=== PATIENT | female | born 1935 | race Caucasian/White ===

== ENCOUNTER 2016-05-22 16:17 | Inpatient (IN) | payer MEDICARE, OTHER ==
[~2016-05-22] VITALS: Ht 167.6 cm; Wt 56.7 kg
--- NOTE | ~2016-05-22 | CN ---
PATIENT NAME:JOSE GUADALUPE VIEIRA MEDICAL RECORD: [id number] : 37 LOCATION:D[facility] ADMIT DATE: 05/23/16 ACCOUNT: [id number] CONSULTING PHYSICIAN: LOUIE REEDER MD REFERRING PHYSICIAN: MARTIN AMES MD DATE OF CONSULTATION: 05/30/2016 Neurosurgical Consultation CHIEF COMPLAINT: Weakness. HISTORY OF PRESENT ILLNESS: This is an elderly white female with at least 6 months of progressive weakness in all 4 extremities with no focal neurologic deficit. She denies seizure or stroke-like symptoms. She denies headaches. Medical workup was significant for anemia and hypothyroidism. REVIEW OF SYSTEMS: Negative for seizures, stroke symptoms, TIA, headaches and palpitations. PHYSICAL EXAMINATION: GENERAL: An elderly-appearing ____, white female, in no acute distress. NEUROLOGIC: Alert and oriented times 3. Cranial nerves intact. Motor strength is 4+/5 in all 4 extremities to detailed testing. DTRs are 2+ and equal over biceps, triceps, patella and Achilles. She has downgoing toes to Babinski testing on both sides. She has full range of motion of her cervical, thoracic and lumbar spine. Her cervical, thoracic and lumbar spine is nontender. She has no nuchal rigidity. LABORATORY DATA: CT of the brain shows prominent lateral ventricles with no extra-axial masses or intra-axial masses. MRI of the brain shows possible slight transependymal CSF flow across the frontal horns of the lateral ventricles. Lateral ventricles are prominent. The third ventricle is prominent. The fourth ventricle is normal in size. There are no intra-axial or extra-axial masses. There are positive deep white matter T2 signal changes consistent with normal aging. IMPRESSION: Episodic metabolic encephalopathy with hypothyroidism, remote possibility of normal pressure hydrocephalus. PLAN: Observe. I will see her back in the clinic in 2 months' time and reassess clinically for symptoms and plans for normal pressure hydrocephalus with a followup MRI at that time. Thank you for this consultation. TRANSINT:[id number] Voice Confirmation ID: [id number] DOCUMENT ID: [id number] CONSULT REPORT [id number] JOSE GUADALUPE VIEIRA LOUIE REEDER MD CC: [id number] DICTATION DATE: 05/30/161807 BAG INSPECTOR: 05/30/162 [place] [address]
[~2016-05-22 16:17] MED LIST: NEURONTIN 400400 MG PO; ORAPRED ODT30 MG/TAB PO; STERAPRED DS 1210 MG; VITAMIN B-121000 MCG PO; VITAMIN D3400 UNI1 PO; ZESTORETIC 20-1 EACH PO
--- NOTE | 2016-05-22 16:30 | NUR ---
RECEIVED TO ROOM [address] BAZZI'S OFFICE. A/O X3. FAMILY WITH PATIENT. SKIN IS INTACT WITHOUT REDNESS. IV SITED TO LEFT HAND AFTER ONE ATTEMPT WITH 20G.
[2016-05-22] MEDS ORDERED: SYNTHROID100 MCG (16:45)
[2016-05-22 16:54] VITALS: BP 129/55; BMI 20.2
[2016-05-22 17:22] LABS: HEMOGLOBIN 9.5 g/dL (12-16); MCHC 32.8 g/dL (31.0-37.0); MCV 100.7 fL (80.0-100.0); MEAN PLATELET VOLUME 10.3 fL (7.4-10.4); PLATELET COUNT 155 10x3/uL (130-400); RBC 2.88 10x6/uL (4.00-5.40); RDW 16.7 % (11.5-14.5); WBC 2.9 10x3/uL (4.8-10.8)
--- NOTE | 2016-05-22 17:45 | NUR ---
SUPPER TRAY SERVED IN ROOM. FAMILY ASSISTED WITH MEAL. NO CHANGES NOTED AT THIS TIME. DENIES NEEDS.
[2016-05-22 17:55] LABS: ALBUMIN 3.4 g/dL (3.4-5.0); ALKALINE PHOSPHATASE 72 U/L (46-116); ALT (SGPT) 30 U/L (10-68); BILIRUBIN - TOTAL 0.62 mg/dL (0.2-1.3); CALC OSMOLALITY 267 mosm/kg (275-300); CALCIUM 8.3 mg/dL (8.5-10.1); CARBON DIOXIDE 27.2 mmol/L (21.0-32.0); CHLORIDE - SERUM 95 mmol/L (98-107); CKMB 0.8 U/L (0.0-3.6); CREATINE KINASE 28 UL (21-215); CREATININE - SERUM 1.1 mg/dL (0.6-1.3); GLUCOSE 100 mg/dL (74-106); LDH 273 U/L (81-234); MAGNESIUM - SERUM 1.5 mg/dL (1.8-2.4); POTASSIUM - SERUM 3.4 mmol/L (3.5-5.1); PRE-ALBUMIN 13.8 mg/dL (18.0-35.7); PROTEIN - SERUM 6.5 g/dL (6.4-8.2); SODIUM 132 mmol/L (136-145); THYROID STIMULATING HORMONE 3.42 uIU/mL (0.36-3.74); TROPONIN-I 0.033 ng/mL (0.000-0.060); UREA NITROGEN 22 mg/dL (7-18); eGFR NON AFRICAN AMERICAN 51 mL/min (90-120)
[2016-05-22 18:48] LABS: LYMPHOCYTES 14 % (15-50); MONOCYTES 3 % (2-11); NEUTROPHILS 83 % (40-80); PLATELET ESTIMATE NORMAL
[2016-05-22 18:51] LABS: ERYTHROCYTE SEDIMENTATION RATE 110 mm/hr (0-30)
[2016-05-22 20:00] VITALS: BP 140/54
--- NOTE | 2016-05-22 20:24 | NUR ---
PATIENT'S FAMILY AT BEDSIDE. PATIENT DENIES NEEDS AT THIS TIME. BED IN LOWEST POSITION AND CALL LIGHT WITHIN REACH. ENCOURAGED PATIENT TO CALL IF SHE HAS NEEDS.
[2016-05-23] VITALS (11 sets, daily range): BP systolic 114–152; BP diastolic 53–72; Ht 167.6 cm; Wt 56.7 kg
[2016-05-23 06:33] LABS: BASOPHILS 0 % (0.0-2.0); EOSINOPHILS 0 % (0-7); HEMATOCRIT 23.9 % (36.0-48.0); HEMOGLOBIN 7.9 g/dL (12-16); IMMATURE GRANULOCYTES 0.5 % (0-5); LYMPHOCYTES 20.4 % (15-50); MCH 33.1 pg (26.0-34.0); MCHC 33.1 g/dL (31.0-37.0); MEAN PLATELET VOLUME 9.5 fL (7.4-10.4); MONOCYTES 12.6 % (2-11); NEUTROPHILS 66.5 % (40-80); PLATELET COUNT 140 10x3/uL (130-400); RBC 2.39 10x6/uL (4.00-5.40); RDW 16.4 % (11.5-14.5)
[2016-05-23 06:36] LABS: WBC 2.1 10x3/uL (4.8-10.8)
[2016-05-23 06:54] LABS: ANION GAP 11.9 mmol/L (8-16); CARBON DIOXIDE 25.3 mmol/L (21.0-32.0); POTASSIUM - SERUM 3.2 mmol/L (3.5-5.1)
[2016-05-23 07:00] LABS: CREATININE - SERUM 0.8 mg/dL (0.6-1.3)
--- NOTE | 2016-05-23 07:59 | NUR ---
AWAKE AND ALERT. ORIENTED TO SELF THIS AM. ATTEMPTS TO REORIENT WITHOUT SUCCESS. LUNGS ARE CLEAR BILATERALLY, NO COUGH NOTED. SKIN IS INTACT IWHTOUT REDNESS. UP TO BR WITH MOD ASSIST OF ONE. VOIDED CLEAR YELLOW URINE WITHOUT DIFFICULTY. SKIN CARE PER SELF. IV TO LEFT HAND IS PATENT WITHOUT REDNESS AT INSERTION SITE. FAMILY AT BEDSIDE. REPOSITIONED IN BED FOR COMFORT.
--- NOTE | 2016-05-23 10:15 | NUR ---
RESTING QUIETLY IN BED WITH EYES CLOSED. FAMILY AT [facility].
[2016-05-23 10:29] LABS: PATH REVIEW PERIPHERAL SMEAR REVIEWED
--- NOTE | 2016-05-23 10:49 | HP ---
PATIENT: JOSE GUADALUPE DHALIWAL MEDICAL RECORD: [id number] ACCOUNT: [id number] LOCATION:D.[facility] : 36 ADMISSION DATE: 05/22/16 HISTORY AND PHYSICAL EXAMINATION HISTORY OF PRESENT ILLNESS: Ms. Dhalwial is a 80-year-old white female with multiple medical issues, who had been followed for the last several months with worsening fatigue and weakness. She has a history of non-Hodgkin's lymphoma that was previously followed at [facility] by Dr. Herb Pineda. Most recently, she was found to have marked hypothyroidism with a TSH of 50. This is being corrected with near-normalization of her TSH, but she remains very short of breath and progressively weaker today. She is to the point where she cannot even ambulate. She is in a wheelchair. She had an echo done today at the outpatient clinic with initial report shows a normal EF with no significant valvular disease, may have some moderate aortic insufficiency. She has had worsening anemia. Her hemoglobin last week was 8.8, today was improved at 9.2; but clinically, she is dehydrated and I suspect this is lower than this. She has had poor oral intake for the last few days. She has an upcoming appointment with cardiology. Her recent iron studies were okay. She did have a sed rate of 120. Recent vitamin D level was normal. She had some mild renal insufficiency with a calculated GFR of 49. At this time, due to her clinical dehydration, I am going to place her in for some IV fluids under observation. I also spoke with Dr. Pineda today and he said he would be happy to see the patient in followup or if it would be more convenient to have her see someone in the [place] area. I think right now, travel would be difficult, so I am going to ask Dr. Nielsen to take a look at her. She had a normal bone marrow about 6 months ago, but certainly some of this is worrisome for recurrence of her lymphoma. PAST MEDICAL HISTORY: Significant for recently diagnosed hypothyroidism, hypertension, previous history of lupus and polymyalgia rheumatica; diverticular disease and osteoarthritis. PAST SURGICAL HISTORY: Right breast surgery for abscess, hysterectomy, surgery to thumb on her right hand. ALLERGIES OR INTOLERANCES: INCLUDE AMBIEN AND SULFONAMIDES. HOME MEDICATIONS: Synthroid 112 mcg daily, lisinopril 20/12.5 b.i.d., Benadryl, melatonin, probiotic, B12, and vitamin D3. FAMILY HISTORY: Significant for heart disease, strokes, type 2 diabetes and gallstones. SOCIAL HISTORY: The patient is retired. She has 4 children. She does not smoke or drink. REVIEW OF SYSTEMS: Worrisome for increasing fatigue and weight loss. She denies any joint pain or muscle pain despite her recent elevated ESR of 120. She denies any chest pain. She does get short of breath. No changes in bladder or bowel habits. She denies any rashes. PHYSICAL EXAMINATION: VITAL SIGNS: Height 5 feet 6, estimated weight of 150 pounds with a BMI of 24.2. Temperature is 97.6, BP 130/64, pulse is 118, respirations 12, and sats 99% on room air. HISTORY AND PHYSICAL [id number] JOSE GUADALUPE DHALIWAL GENERAL: She is pale in appearance. She appears moderately ill. She is not in any distress. HEENT: The sclerae are nonicteric. Conjunctivae are pale. TMs clear. NECK: Soft and supple. HEART: Regular with tachycardia. LUNGS: Clear. ABDOMEN: Soft. No edema. NEUROLOGIC: Without any gross focal deficits. IMPRESSION: Dehydration, generalized weakness, tachycardia secondary to dehydration, history of non-Hodgkin lymphoma; worrisome for possible reoccurrence, mild renal insufficiency, hypertension, history of previous diagnoses of lupus, polymyalgia rheumatica and rheumatoid arthritis with no current joint or muscle pain; edema which is better. PLAN: Observation, IV fluids. We will get repeat labs in a.m. Ask Dr. Nielsen to check, may need to consider repeat bone marrow since it has been 6 months since her last. See orders for rest of plan. TRANSINT:[id number] Voice Confirmation ID: [id number] DOCUMENT ID: [id number] CHIN BAZZI DO at 1049 CC: [id number] DICTATION DATE: 05/22/161744 JANITOR SUPERVISOR: 05/22/162126 ADM IN [place] [id number] [place] [id number]
--- NOTE | 2016-05-23 12:30 | NUR ---
LUNCH SERVED IN ROOM FEEDS SELF WITH ENCOURAGEMENT FROM FAMILY.
--- NOTE | 2016-05-23 15:16 | NUR ---
Patient Name: JOSE GUADALUPE VIEIRA Admission Status: Urgent Accout number: [id number] Admission Date: 05-23-2016 : 1935 Admission Diagnosis: Attending: RAZ Current LOS: 1 Anticipated DC Date: 05-26-2016 Planned Disposition: Home Primary Insurance: MEDICARE A & B Discharge Planning Comments: CM CALLED DAUGHTER (BG) REGARDING D/C NEEDS AND PLANS. PATIENTS SPOUSE DID NOT ANSWER PHONE. PATIENT WAS INDEPENDENT UNTIL A FEW WEEKS BACK PER DAUGHTER AND BEGAN USING A WALKER. PATIENT LIVES WITH HER SPOUSE AND HE WILL DRIVE HER HOME AT DISCHARGE. PATIENT HAS NO STEPS OR STAIRS AT HER HOME PER DAUGHTER. PATIENTS PCP IS DR. BAZZI AND PHARMACY IS [facility] ON [email or web address] PATIENTS DAUGHTER IS UNSURE AT THIS TIME WHAT HER MOTHER MIGHT NEED FOR DISCHARGE. DAUGHTER WANTS TO WAIT CLOSER TO DISCHARGE TO DECIDE HER NEEDS. PATIENT HAS NEVER HAD HOME HEALTH. CM WILL CONTINUE TO FOLLOW PATIENT WITH D/C NEEDS AND PLANS. PCP DR. ROSE MARY GORDON ON [email or web address] [phone] BG CUBA [phone] Molded Candles Wicker: Angie Rodriguez Is the patient Alert and Oriented? No 0 * How many steps to enter\exit or inside your home? 0 0 * PCP DR. BAZZI 0 * [facility]acy [facility] ON [email or web address] 0 * Preadmission Environment Home with Family 0 * ADLs Independent 0 * Equipment Walker 0 * List name and contact numbers for known caregivers / representatives who currently or will assist patient after discharge: BG CUBA (DAUGHTER) [phone] JARRETT VIEIRA [phone] 0 * Community resources currently utilized None 0 * Additional services required to return to the preadmission environment? Yes 0 * Can the patient safely return to the preadmission environment? Yes 0 * Has this patient been hospitalized within the prior 30 days at any hospital? No 0 Grand Total: 0
--- NOTE | 2016-05-23 16:14 | NUR ---
RESTING QUIETLY IN BED WITH EYES CLOSED. NO FAMILY AT BEDSIDE AT THIS TIME.
--- NOTE | 2016-05-23 17:34 | NUR ---
PRBC UP AT THIS TIME. VSS. DESAI SERVED IN ROOM. FAMILY AT BEDSIDE.
--- NOTE | 2016-05-23 17:45 | NUR ---
TRANSFUSION CONTINUES WITHOUT COMPLICATIONS. VSS. FAMILY AT BEDSIDE. ASSISTED TO EAT ALMOST HALF OF SUPPER TRAY PER STAFF. NO CHANGES NOTED.
--- NOTE | 2016-05-23 21:08 | NUR ---
PATIENT COMPLAINING OF A HEADACHE. LISA FARNSWORTH WHO ORDERED TYLENOL.
[2016-05-24 02:04] VITALS: BP 128/55
--- NOTE | 2016-05-24 05:07 | NUR ---
PATIENT RESTING IN BED WITH BLOOD TRANSFUSING. FAMILY AT BEDSIDE AND PATIENT DENIES NEEDS AT THIS TIME. BED IN LOWEST POSITION AND CALL LIGHT WITHIN REACH. ENCOURAGED PATIENT AND FAMILY TO CALL IF THEY HAVE NEEDS.
[2016-05-24 05:38] LABS: BASOPHILS 0 % (0.0-2.0); EOSINOPHILS 0 % (0-7); LYMPHOCYTES 23.6 % (15-50); MCH 31.4 pg (26.0-34.0); MEAN PLATELET VOLUME 9.6 fL (7.4-10.4); NEUTROPHILS 62.4 % (40-80); PLATELET COUNT 130 10x3/uL (130-400)
[2016-05-24 06:15] VITALS: BP 125/68
[2016-05-24 06:19] LABS: ANION GAP 12.1 mmol/L (8-16); CALCIUM 7.7 mg/dL (8.5-10.1); CARBON DIOXIDE 24.9 mmol/L (21.0-32.0); CREATININE - SERUM 0.8 mg/dL (0.6-1.3); PROTEIN - SERUM 5.3 g/dL (6.4-8.2)
[2016-05-24 06:21] LABS: ALBUMIN 2.4 g/dL (3.4-5.0); BILIRUBIN - TOTAL 4.8 mg/dL (0.2-1.3)
[2016-05-24 06:26] LABS: HEMOGLOBIN 9.9 g/dL (12-16); MCV 95.2 fL (80.0-100.0); RBC 3.15 10x6/uL (4.00-5.40); WBC 1.6 10x3/uL (4.8-10.8)
--- NOTE | 2016-05-24 07:47 | NUR ---
AWAKE AND ALERT. ORIENTED X3. FAMILY AT BEDSIDE. LUNGS ARE CLEAR THIS AM. NO COUGH NOTED. SKIN IS INTACT WITHOUT REDNESS. IV TO LEFT FOREARM IS PATENT WITHOUT REDNESS AT INSERTION SITE. PATIENT AND FAMILY ARE IN AGREEMENT THAT THEY DON'T WANT TO DO A BONE MARROW. WILL TALK WITH DR. FINE. DENIES NEEDS.
[2016-05-24 08:06] LABS: APTT 27.9 SECONDS (22.8-39.4); INR 1.18 (0.85-1.17); PROTIME 14.9 SECONDS (11.6-15.0)
[2016-05-24 08:46] VITALS: BP 140/63
[2016-05-24 09:28] LABS: APPEARANCE SLT CLOUDY (CLEAR); BACTERIA MANY /hpf (NONE SEEN); BILIRUBIN NEGATIVE (NEGATIVE); COLOR YELLOW (YELLOW); EPITHELIAL CELLS 0-5 /hpf (0-5); GLUCOSE NEGATIVE (NEGATIVE); HYALINE CAST OCC /lpf (NONE SEEN); KETONE NEGATIVE (NEGATIVE); LEUKOCYTE ESTERASE 2+ (NEGATIVE); MUCUS <1+ /lpf (NONE SEEN); NITRITE POSITIVE (NEGATIVE); PROTEIN TRACE mg/dL (NEGATIVE); RED CELLS - URINE 0-5 /hpf (0-5); UROBILINOGEN NORMAL (NORMAL); WHITE CELLS - URINE 25-50 /hpf (0-5)
--- NOTE | 2016-05-24 10:49 | NUR ---
AMBULATED 500 FEET WITH PT THIS AM. WAS INCONTINENT OF LARGE AMOUNT OF SOFT/LOOSE STOOL. SKIN CARE PER STAFF. SITTING UP IN CHAIR AT SIDE OF BED FOR NOW. FAMILY IN ROOM.
[2016-05-24 12:45] VITALS: BP 145/70
--- NOTE | 2016-05-24 14:00 | NUR ---
C/O PAIN IN LOWER ABDOMEN. GIVEN ONE 500MG TYLENOL FOR SAME. WILL MONITOR.
--- NOTE | 2016-05-24 15:00 | NUR ---
AMBULATED IN HALLWAY WITH PT. REPORTS PAIN IN ABDOMEN IMPROVED.
--- NOTE | 2016-05-24 16:19 | NUR ---
ASSISTED TO BED WITH MOD ASSIST OF ONE. POSITIONED IN BED FOR COMFORT.
[2016-05-24 16:43] VITALS: BP 135/72
--- NOTE | 2016-05-24 18:26 | NUR ---
ATE ALMOST HALF OF SUPPER. FAMILY AT BEDSIDE. C/O PAIN BEHIND RIGHT EAR, SHARP AND CONSTANT. WARM MOIST HEAT APPLIED. WILL MONITOR. NO CHANGES NTOED.
--- NOTE | 2016-05-24 20:00 | NUR ---
CHANGED PATIENT'S BEDDING AND GOWN AFTER INCONTINENT EPISODE. FAMILY IS AT BEDSIDE AND CONCERNED THAT "NO DOCTORS HAVE COME TODAY AND NO MEDICATIONS HAVE BEEN ORDERED" I ASSURED THE FAMILY THAT WE WILL KEEP THE PATIENT CLEAN AND DRY THROUGH THE NIGHT. PATIENT DENIES OTHER NEEDS AT THIS TIME. BED IN LOWEST POSITION AND CALL LIGHT WITHIN REACH. ENCOURAGED PATIENT AND FAMILY TO CALL IF PATIENT HAS FURTHER NEEDS.
--- NOTE | 2016-05-24 20:45 | NUR ---
CHANGED PATIENT'S BEDDING AND GOWN AFTER INCONTINENT URINE AND BOWEL EPISODE.
--- NOTE | 2016-05-24 22:45 | NUR ---
CHANGED PATIENT'S GOWN AND BEDDING AFTER INCONTINENT EPISODE.
[2016-05-25] VITALS: BP 138/61
[2016-05-25 04:00] VITALS: BP 131/66
[2016-05-25 05:40] LABS: BASOPHILS 0.6 % (0.0-2.0); EOSINOPHILS 0.6 % (0-7); HEMATOCRIT 29.5 % (36.0-48.0); HEMOGLOBIN 10.2 g/dL (12-16); IMMATURE GRANULOCYTES 0.6 % (0-5); MCH 32.8 pg (26.0-34.0); MCHC 34.6 g/dL (31.0-37.0); MCV 94.9 fL (80.0-100.0); MEAN PLATELET VOLUME 9.3 fL (7.4-10.4); MONOCYTES 16.1 % (2-11); NEUTROPHILS 63.1 % (40-80); PLATELET COUNT 120 10x3/uL (130-400); RBC 3.11 10x6/uL (4.00-5.40); RDW 19.6 % (11.5-14.5)
[2016-05-25 05:46] LABS: WBC 1.7 10x3/uL (4.8-10.8)
[2016-05-25 05:50] LABS: ALBUMIN 2.3 g/dL (3.4-5.0); ALKALINE PHOSPHATASE 53 U/L (46-116); ALT (SGPT) 17 U/L (10-68); CALC OSMOLALITY 275 mosm/kg (275-300); CALCIUM 7.3 mg/dL (8.5-10.1); CARBON DIOXIDE 24.3 mmol/L (21.0-32.0); CHLORIDE - SERUM 105 mmol/L (98-107); CREATININE - SERUM 0.7 mg/dL (0.6-1.3); GLUCOSE 92 mg/dL (74-106); SODIUM 138 mmol/L (136-145); UREA NITROGEN 12 mg/dL (7-18); eGFR NON AFRICAN AMERICAN 85 mL/min (90-120)
[2016-05-25 05:59] LABS: POTASSIUM - SERUM 2.8 mmol/L (3.5-5.1)
--- NOTE | 2016-05-25 07:00 | NUR ---
REPORT RECIEVED ASSUMED CARE. PATIENT IN BED WITH IV INTACT. NO COMPLAINTS AT THIS TIME. FAMILY AT BEDSIDE. CALL LIGHT WITHIN REACH.
[2016-05-25 08:41] VITALS: BP 117/63
--- NOTE | 2016-05-25 11:00 | NUR ---
SPOKE WITH DR. FINE ABOUT IV ABX FOR UTI. NEW ORDERS RECIEVED AND CARRIED OUT. FAMILY AT BEDSIDE. CALL LIGHT WITHIN REACH.
[2016-05-25 13:03] VITALS: BP 152/71
--- NOTE | 2016-05-25 13:22 | NUR ---
Nutrition Follow Up: Pt and family were present in room at the time of RD visit. Pt remained silent. Family reported that pt has had gradual wt loss over "a long period of time." Family said that pt likes vanilla Ensure and that her appetite seems to be improving. Food preferences noted. Pt is eating 38% meal avg on a regular diet. Wt stable. +BM 05/25/16. Labs noted - K+ low. Meds noted including Vit B12, Vit D. Rec continue current diet. Will send Ensure TID. Will honor food preferences. RD following.
--- NOTE | 2016-05-25 14:39 | PN ---
PATIENT:JOSE GUADALUPE VIEIRA MEDICAL RECORD: [id number] LOCATION:D.[facility] ADMISSION DATE: 05/23/16 PROGRESS NOTE DATE OF SERVICE: 05/24/2016 SUBJECTIVE: The patient's case was reviewed. OBJECTIVE: The patient is acutely medically ill with a number of very serious medical problems. She has apparently experienced an acute memory loss and as I understand it from both verbal and written reports, I am being asked to see her to determine if there is a dementia present. ASSESSMENT: No diagnosis. PLAN: The patient is acutely medically ill and it is not really possible to determine if this memory loss is associated with an acute medical illness or a longstanding underlying dementia. She may well be delirious or the memory loss could just simply be because of multitude of medical problems associated with the stress of being acutely ill and out of her own environment. It is virtually impossible to make the initial diagnosis of dementia under these circumstances. I would recommend an outpatient followup and would also recommend that if perceptual psychotic symptoms or aggression developed, that the inpatient consult be redone. TRANSINT:[id number] Voice Confirmation ID: [id number] DOCUMENT ID: [id number] MARK CAIN MD at 1439 CC: [id number] DICTATION DATE: 05/24/16 1804 DOCUMENTATION ANALYST: 05/25/16 0012 ADM IN [place] [id number] [place] [address]
[2016-05-25 16:32] VITALS: BP 139/67
--- NOTE | 2016-05-25 17:07 | NUR ---
Rehab Note- Acute Rehab Prescreen order received. Chart reviewed at this time and will follow due to continue to have Oncology work up at this time. Thank you for this referral! Radha Terrazas RN Clinical Liaison, [facility] Rehab/Asif
--- NOTE | 2016-05-25 18:45 | NUR ---
PATIENT IN BED WITH IV INTACT. NO COMPLAINTS. FAMILY AT BEDSIDE. CALL; LIGHT WITHIN REACH.
--- NOTE | 2016-05-25 19:08 | NUR ---
OT NOTE: PT COMPLETED SIDE ROLLING WITH MAX A. PT COMPLETED HYGIENE TASK WITH MOD A. PT COMPLETED AAROM EXS FOR INCREASED I WITH ADLS. THANK YOU, MAXINE DOLL
[2016-05-25 21:33] VITALS: BP 159/71
[2016-05-26 01:00] VITALS: BP 156/68
--- NOTE | 2016-05-26 03:28 | NUR ---
(2024)TYLENOT 500MG GIVEN PO FOR C/O HEADACHE.WILL CONTINUE TO MONITOR FRO ANY CHGES AND FOLLOW CURRENT PLAN OF CARE.
[2016-05-26 05:26] LABS: BASOPHILS 0 % (0.0-2.0); EOSINOPHILS 1.1 % (0-7); HEMATOCRIT 29.4 % (36.0-48.0); HEMOGLOBIN 9.7 g/dL (12-16); LYMPHOCYTES 21.9 % (15-50); MCH 31.7 pg (26.0-34.0); MCV 96.1 fL (80.0-100.0); MEAN PLATELET VOLUME 9.8 fL (7.4-10.4); MONOCYTES 13.5 % (2-11); NEUTROPHILS 63.5 % (40-80); PLATELET COUNT 121 10x3/uL (130-400); RBC 3.06 10x6/uL (4.00-5.40); RDW 19.3 % (11.5-14.5)
[2016-05-26 05:38] LABS: WBC 1.8 10x3/uL (4.8-10.8)
[2016-05-26 05:43] LABS: ALBUMIN 2.4 g/dL (3.4-5.0); ALKALINE PHOSPHATASE 57 U/L (46-116); ALT (SGPT) 17 U/L (10-68); BILIRUBIN - TOTAL 0.42 mg/dL (0.2-1.3); CALCIUM 7.3 mg/dL (8.5-10.1); CARBON DIOXIDE 22.8 mmol/L (21.0-32.0); CHLORIDE - SERUM 106 mmol/L (98-107); CREATININE - SERUM 0.6 mg/dL (0.6-1.3); GLUCOSE 87 mg/dL (74-106); PROTEIN - SERUM 4.9 g/dL (6.4-8.2); SODIUM 138 mmol/L (136-145); eGFR NON AFRICAN AMERICAN > 90 mL/min (90-120)
[2016-05-26 05:47] LABS: CALC OSMOLALITY 272 mosm/kg (275-300); UREA NITROGEN 8 mg/dL (7-18)
[2016-05-26 05:48] LABS: POTASSIUM - SERUM 2.9 mmol/L (3.5-5.1)
[2016-05-26 06:48] VITALS: BP 157/70
--- NOTE | 2016-05-26 07:00 | NUR ---
REPORT RECIEVED ASSUMED CARE. PATIENT IN BED WITH IV INTACT. NO COMPLAINTS. CALL LIGHT WITHIN REACH.
[2016-05-26 07:54] VITALS: BP 163/76
--- NOTE | 2016-05-26 10:45 | NUR ---
PATIENT BACK TO ROOM AT THIS TIME. NO COMPLAINTS VS STABLE. EYES CLOSED RESTING QUIETLY. CALL LIGHT WITHIN REACH.
[2016-05-26 11:33] VITALS: BP 153/64
--- NOTE | 2016-05-26 12:30 | NUR ---
PATIENT IN BED WITH NO COMPLAINTS AT THIS TIME. IV INTACT. FAMILY AT BEDSIDE. CALL LIGHT WITHIN REACH.
[2016-05-26 16:32] VITALS: BP 153/64
--- NOTE | 2016-05-26 16:49 | NUR ---
Rehab continues to follow this patient. She has studies pending and her therapy has been on hold. We will continue to follow her during this admission. Renata Greenberg RN Clinical Liaison, Rehab
--- NOTE | 2016-05-26 18:41 | NUR ---
PATIENT IN BED WITH IV INTACT. KCL LUOIS STILL INFUSING. PATIENT STATES PAIN TO IV DUE TO POTASSIUM. NO OTHER COMPLAINTS. POTASSIUM RUNNING SLOWLY SO PATIENT CAN TOLERATE. FAMILY AT BEDSIDE. CALL LIGHT WITHIN REACH.
[2016-05-26 19:00] VITALS: BP 165/73
--- NOTE | 2016-05-26 19:06 | NUR ---
OT NOTE: PT COMPLETED UE POSITIONING . THANK YOU,MAXINE DOLL
--- NOTE | 2016-05-26 20:00 | NUR ---
PT RECEIVED LAYING IN BED. 2 FAMILY MEMBERS AT BEDSIDE. RESPIRATIONS EVEN AND UNLABORED. LUNG SOUNDS CLEAR BILATERALLY. PT ALERT AND ORIENTED X3 AT THIS TIME. PT NOTED TO HAVE 10MEQ POTASSIUM/100ML IV RUNNING AT THIS TIME @ 40. PT REFUSES TO HAVE RATE INCREASED STATING IT IS TOO PAINFUL AND CURRENT RATE IS FINE. PT DENIES PAIN AT THIS TIME. SCD'S IN PLACE. DRESSING TO RIGHT HIP CLEAN, DRY, AND INTACT. CALL LIGHT AND H2O IN PT REACH. BED IN LOW POSITION. SIDE RAILS UPX2.
--- NOTE | 2016-05-27 02:00 | NUR ---
PT IN BED WITH NO DISTRESS AT THIS TIME. RESPIRATIONS EVEN AND UNLABORED. VISITORS AT BEDSIDE. SIDE RAILS X 2. BED IS LOW. CALL LIGHT IS IN REACH.
[2016-05-27 05:41] LABS: BASOPHILS 0.1 % (0.0-2.0); EOSINOPHILS 0.1 % (0-7); HEMATOCRIT 28.9 % (36.0-48.0); HEMOGLOBIN 9.9 g/dL (12-16); IMMATURE GRANULOCYTES 0.5 % (0-5); LYMPHOCYTES 3.9 % (15-50); MCHC 34.3 g/dL (31.0-37.0); MCV 96.3 fL (80.0-100.0); MEAN PLATELET VOLUME 9.7 fL (7.4-10.4); MONOCYTES 3.9 % (2-11); NEUTROPHILS 91.5 % (40-80); PLATELET COUNT 107 10x3/uL (130-400); RDW 19.3 % (11.5-14.5)
[2016-05-27 06:03] LABS: ALBUMIN 2.1 g/dL (3.4-5.0); ALKALINE PHOSPHATASE 56 U/L (46-116); ALT (SGPT) 17 U/L (10-68); CALC OSMOLALITY 271 mosm/kg (275-300); CALCIUM 7.7 mg/dL (8.5-10.1); CARBON DIOXIDE 24.5 mmol/L (21.0-32.0); CHLORIDE - SERUM 105 mmol/L (98-107); CREATININE - SERUM 0.7 mg/dL (0.6-1.3); GLUCOSE 93 mg/dL (74-106); POTASSIUM - SERUM 3.1 mmol/L (3.5-5.1); PROTEIN - SERUM 4.8 g/dL (6.4-8.2); SODIUM 137 mmol/L (136-145); UREA NITROGEN 7 mg/dL (7-18); eGFR NON AFRICAN AMERICAN 85 mL/min (90-120)
--- NOTE | 2016-05-27 07:58 | NUR ---
UNABLE TO TOLERATE PO POTASSIUM PER COMMERCIAL ATTORNEY NURSE. PT VOMITED LIQUID UP AFTER DRINKING IT. EYES CLOSED AT THIS TIME WITH RESPIRATIONS EVEN AND NON LABORED. DAUGHTER AND GRANDDAUGHTER AT BEDSIDE. IV POTASSIUM STARTED PER PROTOCOL AND INITIATED AT 25 ML/HR PT COMPLAINS OF POTASSIUM BURNING HER VEIN. NO FURTHER NEEDS ASSESSED AT THIS TIME. CALL LIGHT IN REACH, WILL CONTINUE WITH PLAN OF CARE.
[2016-05-27 08:15] LABS: FOLATE (FOLIC ACID) - SERUM 6.6 ng/mL (>3.0)
[2016-05-27 08:40] VITALS: BP 147/70
--- NOTE | 2016-05-27 09:35 | NUR ---
SCHEDULED MEDICATIONS ADMINISTERED AT THIS TIME. PRN TYLENOL ADMINISTERED AT THIS TIME. ASSESSMENT PERFORMED AT THIS TIME. FAMILY AT BEDSIDE. CALL LIGHT IN REACH, WILL CONTINUE WITH PLAN OF CARE.
--- NOTE | 2016-05-27 11:56 | NUR ---
1130 PRN TRAMADOL ADMINISTERED FOR PAIN. FAMILY REMAINS AT BEDSIDE. 1156 PRN ZOFRAN ADMINISTERED FOR MILD NAUSEA. DENIES NEEDS. CALL LIGHT IN REACH, WILL CONTINUE WITH PLAN OF CARE.
[2016-05-27 12:34] VITALS: BP 143/68
[2016-05-27 16:34] VITALS: BP 138/65
--- NOTE | 2016-05-27 20:00 | NUR ---
REC'D IN BED AWAKE AND ALERT WITH FAMILY AT BEDSIDE. RESP EVEN AND UNLABORED WITH NO DISTRESS NOTED. CAN EXPRESS NEEDS AND WANTS. NO C/O NOTED. ASSESSMENT COMPLETED. C/L IN REACH AT BEDSIDE. C/L IN REACH AT BEDSIDE.
[2016-05-27 21:36] VITALS: BP 132/62
[2016-05-28 05:05] LABS: BASOPHILS 0.2 % (0.0-2.0); EOSINOPHILS 0.6 % (0-7); HEMATOCRIT 28.4 % (36.0-48.0); HEMOGLOBIN 9.3 g/dL (12-16); IMMATURE GRANULOCYTES 1.6 % (0-5); LYMPHOCYTES 4.9 % (15-50); MCH 31.6 pg (26.0-34.0); MCHC 32.7 g/dL (31.0-37.0); MCV 96.6 fL (80.0-100.0); MEAN PLATELET VOLUME 10.2 fL (7.4-10.4); MONOCYTES 3.3 % (2-11); NEUTROPHILS 89.4 % (40-80); PLATELET COUNT 96 10x3/uL (130-400); RBC 2.94 10x6/uL (4.00-5.40); RDW 19.4 % (11.5-14.5); WBC 12.5 10x3/uL (4.8-10.8)
[2016-05-28 05:20] LABS: PLATELET ESTIMATE DECREASED; PLATELET MORPHOLOGY NORMAL PLT MORPH
[2016-05-28 05:22] LABS: ALBUMIN 2.1 g/dL (3.4-5.0); ALKALINE PHOSPHATASE 57 U/L (46-116); ALT (SGPT) 16 U/L (10-68); CALC OSMOLALITY 271 mosm/kg (275-300); CALCIUM 7.5 mg/dL (8.5-10.1); CARBON DIOXIDE 25.4 mmol/L (21.0-32.0); CHLORIDE - SERUM 105 mmol/L (98-107); CREATININE - SERUM 0.7 mg/dL (0.6-1.3); GLUCOSE 85 mg/dL (74-106); POTASSIUM - SERUM 3.4 mmol/L (3.5-5.1); PROTEIN - SERUM 4.8 g/dL (6.4-8.2); SODIUM 137 mmol/L (136-145); eGFR NON AFRICAN AMERICAN 85 mL/min (90-120)
[2016-05-28 05:27] LABS: UREA NITROGEN 10 mg/dL (7-18)
--- NOTE | 2016-05-28 07:32 | NUR ---
AWAKE AND ALERT IN GOOD SPIRITS THIS MORNING. REMAINS CLEAN AND DRY AT THIS TIME AND VOICES NO COMPLAINTS OF PAIN. AT BEDSIDE. CALL LIGHT IN REACH. BED IN LOWEST POSITION WITH WHEELS LOCKED AND SRX2. ALMA MAT ALARM IN USE FOR FALL PRECAUTIONS. WILL CONTINUE WITH PLAN OF CARE.
[2016-05-28 07:53] VITALS: BP 105/66
--- NOTE | 2016-05-28 08:36 | NUR ---
SCHEDULED MEDICATIONS ADMINISTERED AT THIS TIME. DENIES NEED FOR PAIN MEDICATION. FAMILY AT BEDSIDE. ASSESSMENT PERFORMED PER FLOWSHEET. ALMA MAT ALARM IN USE FOR FALL PRECAUTIONS. IV PATENT TO RIGHT WRIST PATENT. DENIES NEEDS AT THIS TIME, CALL LIGHT IN REACH. WILL CONTINUE WITH PLAN OF CARE.
--- NOTE | 2016-05-28 10:45 | NUR ---
UP TO CHAIR PER PHYSICAL THERAPY AT THIS TIME. FAMILY REMAINS AT BEDSIDE. CALL LIGHT IN REACH, WILL CONTINUE WITH PLAN OF CARE.
--- NOTE | 2016-05-28 11:22 | NUR ---
SCHEDULED ANTIBIOTIC ADMINISTERED AT THIS TIME. FAMILY REMAINS AT BEDSIDE. DR FINE ASSESSING PT. CALL LIGHT IN REACH, WILL CONTINUE WITH PLAN OF CARE.
[2016-05-28 12:36] VITALS: BP 157/80
--- NOTE | 2016-05-28 13:00 | NUR ---
PROVIDED PT WITH INCENTIVE SPIROMETER AND INSTRUCTED PT ON PROPER USE. PT WAS ABLE TO GET 250ML OF INSPIRATORY VOLUME. TOLD PT AND FAMILY THAT SHE WAS TO USE IT 10 TIMES AN HOUR WHILE AWAKE. UNDERSTANDING VERBALIZED. DENIES FURTHER NEEDS. WILL CONTINUE WITH PLAN OF CARE.
[2016-05-28 15:34] VITALS: BP 132/69
--- NOTE | 2016-05-28 16:00 | NUR ---
SLEEPING AT THIS TIME WITH RESPIRATIONS EVEN AND NON LABORED. WAS GOING TO ATTEMPT AN IN AND OUT CATHETER, BUT DID NOT WANT TO WAKE PATIENT THIS IS HER FIRST NAP OF THE DAY. AT BEDSIDE. CALL LIGHT IN REACH, WILL CONTINUE WITH PLAN OF CARE.
[2016-05-28 22:19] VITALS: BP 120/75
--- NOTE | 2016-05-28 23:33 | NUR ---
REC'D IN BED AWAKE AND ALERT. RESP EVEN AND UNLABORED WITH NO DISTRESS NOTED. CAN MAKE SOME NEEDS AND WANTS KNOWN. NO C/O NOTED AT THIS TIME. ASSESSMENT COMPLETED. FAMILY REMAIN AT BEDSIDE. C/L IN REACH AT BEDSIDE.
--- NOTE | 2016-05-29 02:07 | NUR ---
EYES CLOSED RESPIRATIONS WITH EASE AND UNLABORED. SR UP X2 CALL LIGHT WITHIN REACH.
[2016-05-29 03:29] VITALS: BP 145/64
--- NOTE | 2016-05-29 07:00 | NUR ---
REPORT RECIEVED ASSUMED CARE AT THIS TIME. PATIENT IN BED WITH EYES CLOSED RESTING QUIETLY. NO COMPLAINTS OR SIGNS OF DISTRESS. CALL LIGHT WITHIN REACH.
[2016-05-29 07:52] VITALS: BP 172/67
--- NOTE | 2016-05-29 10:30 | NUR ---
PATIENT SITTING UP IN CHAIR PER PT. FAMILY AT SIDE. CALL LIGHT WITHIN REACH.
[2016-05-29 11:00] LABS: BASOPHILS 0.2 % (0.0-2.0); EOSINOPHILS 0.5 % (0-7); HEMATOCRIT 29.8 % (36.0-48.0); HEMOGLOBIN 9.7 g/dL (12-16); IMMATURE GRANULOCYTES 0.5 % (0-5); LYMPHOCYTES 5.5 % (15-50); MCH 31.6 pg (26.0-34.0); MCHC 32.6 g/dL (31.0-37.0); MCV 97.1 fL (80.0-100.0); MEAN PLATELET VOLUME 10.5 fL (7.4-10.4); MONOCYTES 6.2 % (2-11); NEUTROPHILS 87.1 % (40-80); PLATELET COUNT 91 10x3/uL (130-400); RBC 3.07 10x6/uL (4.00-5.40); RDW 19.6 % (11.5-14.5); WBC 9.4 10x3/uL (4.8-10.8)
[2016-05-29 11:12] LABS: VIABILITY: 65% (())
[2016-05-29 11:14] LABS: ALBUMIN 2.4 g/dL (3.4-5.0); ALKALINE PHOSPHATASE 75 U/L (46-116); BILIRUBIN - TOTAL 0.79 mg/dL (0.2-1.3); CALC OSMOLALITY 270 mosm/kg (275-300); CALCIUM 7.9 mg/dL (8.5-10.1); CARBON DIOXIDE 26.5 mmol/L (21.0-32.0); CHLORIDE - SERUM 102 mmol/L (98-107); GLUCOSE 96 mg/dL (74-106); POTASSIUM - SERUM 3.4 mmol/L (3.5-5.1); PROTEIN - SERUM 5.4 g/dL (6.4-8.2); SODIUM 136 mmol/L (136-145); UREA NITROGEN 9 mg/dL (7-18)
[2016-05-29 11:19] LABS: ALT (SGPT) 21 U/L (10-68); CREATININE - SERUM 0.5 mg/dL (0.6-1.3); eGFR NON AFRICAN AMERICAN > 90 mL/min (90-120)
[2016-05-29 11:23] VITALS: BP 140/59
--- NOTE | 2016-05-29 15:00 | NUR ---
PATIENT UP AMBULATING WITH PT.
[2016-05-29 16:17] VITALS: BP 152/84
--- NOTE | 2016-05-29 17:33 | NUR ---
PATIENT SITTING UP IN BED EATING AT THIS TIME. FAMILY AT BEDSIDE. CALL LIGHT WITHIN REACH. BSCDS ON AND WORKING. BA ON.
--- NOTE | 2016-05-29 18:31 | NUR ---
PATIENT SITTING UP IN BED WITH IV INTACT. NO COMPLAINTS. FAMILY AT BEDSIDE. BSCDS ON AND WORKING. CALL LIGHT WITHIN REACH.
[2016-05-29 19:00] VITALS: BP 159/72
--- NOTE | 2016-05-29 20:59 | NUR ---
PATIENT RESTING IN BED. ALERT. ORIENTED TO SELF. NO SIGNS OF DISTRESS NOTED. SCHEDULED MEDS GIVEN. SHIFT ASSESSMENT COMPLETED. AT BEDSIDE. DENIES ANY NEEDS AT THIS TIME. BED LOW CALL LIGHT IN REACH BED ALARM ON.
[2016-05-30] VITALS: BP 131/67
[2016-05-30 04:00] VITALS: BP 146/66
--- NOTE | 2016-05-30 04:00 | NUR ---
PATIENT SLEEPING WITH NO DISTRESS NOTED. AGREE WITH CARPENTER PACKING ASSESSMENT.
[2016-05-30 05:54] LABS: BASOPHILS 0.2 % (0.0-2.0); EOSINOPHILS 1.3 % (0-7); HEMATOCRIT 26.6 % (36.0-48.0); HEMOGLOBIN 8.9 g/dL (12-16); IMMATURE GRANULOCYTES 0.6 % (0-5); LYMPHOCYTES 10.4 % (15-50); MCH 32.7 pg (26.0-34.0); MCHC 33.5 g/dL (31.0-37.0); MCV 97.8 fL (80.0-100.0); MEAN PLATELET VOLUME 10.3 fL (7.4-10.4); MONOCYTES 9.3 % (2-11); NEUTROPHILS 78.2 % (40-80); PLATELET COUNT 86 10x3/uL (130-400); RBC 2.72 10x6/uL (4.00-5.40); RDW 19.6 % (11.5-14.5)
[2016-05-30 06:20] LABS: WBC 4.6 10x3/uL (4.8-10.8)
[2016-05-30 06:22] LABS: ALBUMIN 2.4 g/dL (3.4-5.0); ALKALINE PHOSPHATASE 68 U/L (46-116); ALT (SGPT) 23 U/L (10-68); CALC OSMOLALITY 271 mosm/kg (275-300); CALCIUM 7.9 mg/dL (8.5-10.1); CARBON DIOXIDE 28.6 mmol/L (21.0-32.0); CHLORIDE - SERUM 103 mmol/L (98-107); GLUCOSE 89 mg/dL (74-106); POTASSIUM - SERUM 3.3 mmol/L (3.5-5.1); PROTEIN - SERUM 4.9 g/dL (6.4-8.2); SODIUM 137 mmol/L (136-145); UREA NITROGEN 10 mg/dL (7-18); eGFR NON AFRICAN AMERICAN 85 mL/min (90-120)
[2016-05-30 06:23] LABS: CREATININE - SERUM 0.7 mg/dL (0.6-1.3)
--- NOTE | 2016-05-30 07:00 | NUR ---
REPORT RECIEVED ASSUMED CARE. PATIENT IN BED WITH IV INTACT. NO COMPLAINTS AT THIS TIME. CALL LIGHT WITHIN REACH.
[2016-05-30 08:05] VITALS: BP 162/88
[2016-05-30 12:15] VITALS: BP 164/80
--- NOTE | 2016-05-30 12:42 | NUR ---
NUTRITION MONITORING & EVAL CHART REVIEWED, PT VISIT X 2. SPOUSE AT BEDSIDE ASSISTING PT WITH MEALS. PT EATING SOME BUT PO INTAKE POOR. WILL CONTINUE TO ENCOURAGE INTAKE, MONITOR PT PROGRESS. RD FOLLOWING
--- NOTE | 2016-05-30 12:55 | NUR ---
Rehab Note- [facility] Acute Rehab continues to follow the patient at this time. The patient has a pending consult with Dr. Walker for NPH. Will continue to follow the patient at this time. Radha Terrazas RN Clinical Liaison, [facility] Rehab/Asif
--- NOTE | 2016-05-30 14:01 | NUR ---
OT NOTE: MET WITH PT AND ; PT REMAINS LIMITED IN HER CONVERSATION. PT WITH MINIMAL ORAL INTAKE; BED MOB WITH MIN ASSIST; STATIC SITTING HAS IMPROVED; NO LEANING TO EITHER SIDE TODAY. WILL CONT TO WORK ON STRENGTHENING AND MOBILITY ACT
[2016-05-30 16:01] VITALS: BP 162/80
--- NOTE | 2016-05-30 18:36 | NUR ---
OT NOTE: PT COMPLETED UE POSITIONING TO PREVENT SKIN BREAK DOWN. THANK YOU, JOSEPH DOLL/Mert
--- NOTE | 2016-05-30 18:45 | NUR ---
PATIENT IN BED WITH IV INTACT. NO COMPLAINTS AT THIS TIME. IV INTACT. FAMILY AT BEDSIDE. CALL LIGHT WITHIN REACH.
[2016-05-30 20:00] VITALS: BP 149/72
--- NOTE | 2016-05-30 20:01 | NUR ---
PATIENT RESTING IN BED. NO SIGNS OF DISTRESS NOTED. PATIENT INCONTINENT. LINENS CHANGED. PATIENT TURNED. SCHEDULED MEDICATIONS GIVEN. SHIFT ASSESSMENT COMPLETED. DENIES ANY NEEDS AT THIS TIME. FAMILY PRESENT. BED LOW. CALL LIGHT IN REACH
[2016-05-31] VITALS (11 sets, daily range): BP systolic 127–182; BP diastolic 65–86
[2016-05-31 02:28] LABS: APPEARANCE CLEAR (CLEAR); BILIRUBIN NEGATIVE (NEGATIVE); COLOR STRAW (YELLOW); GLUCOSE NEGATIVE (NEGATIVE); KETONE NEGATIVE (NEGATIVE); LEUKOCYTE ESTERASE NEGATIVE (NEGATIVE); NITRITE NEGATIVE (NEGATIVE); PH 7.5 (5.0-6.0); PROTEIN NEGATIVE (NEGATIVE); SPECIFIC GRAVITY 1.005 (1.005-1.020); UROBILINOGEN NORMAL (NORMAL)
--- NOTE | 2016-05-31 04:00 | NUR ---
PATIENT SLEEPING WITH NO DISTRESS NOTED. AGREE WITH PERSONAL DEVELOPMENT COACH ASSESSMENT.
[2016-05-31 06:30] LABS: ALBUMIN 2.4 g/dL (3.4-5.0); ALKALINE PHOSPHATASE 70 U/L (46-116); ALT (SGPT) 22 U/L (10-68); CALC OSMOLALITY 268 mosm/kg (275-300); CALCIUM 8.2 mg/dL (8.5-10.1); CARBON DIOXIDE 26.4 mmol/L (21.0-32.0); CHLORIDE - SERUM 103 mmol/L (98-107); CREATININE - SERUM 0.6 mg/dL (0.6-1.3); GLUCOSE 91 mg/dL (74-106); POTASSIUM - SERUM 3.6 mmol/L (3.5-5.1); SODIUM 135 mmol/L (136-145); UREA NITROGEN 11 mg/dL (7-18); eGFR NON AFRICAN AMERICAN > 90 mL/min (90-120)
[2016-05-31 06:34] LABS: BASOPHILS 0.3 % (0.0-2.0); EOSINOPHILS 1.3 % (0-7); HEMATOCRIT 24.1 % (36.0-48.0); HEMOGLOBIN 8.4 g/dL (12-16); IMMATURE GRANULOCYTES 1.3 % (0-5); LYMPHOCYTES 14.4 % (15-50); MCH 35.3 pg (26.0-34.0); MCHC 34.9 g/dL (31.0-37.0); MEAN PLATELET VOLUME 10.2 fL (7.4-10.4); NEUTROPHILS 67.7 % (40-80); PLATELET COUNT 78 10x3/uL (130-400); RBC 2.38 10x6/uL (4.00-5.40); RDW 20.2 % (11.5-14.5)
[2016-05-31 06:50] LABS: MCV 101.3 fL (80.0-100.0); WBC 3.1 10x3/uL (4.8-10.8)
--- NOTE | 2016-05-31 07:45 | NUR ---
INCONTINENCE CARE PROVIDED AT THIS TIME. DENIES PAIN AT THIS TIME. DAUGHTER AT BEDSIDE. ALMA MAT ALARM IN USE FOR PAIN CONTROL. CALL LIGHT IN REACH, WILL CONTINUE WITH PLAN OF CARE.
--- NOTE | 2016-05-31 10:30 | NUR ---
SCHEDULED MEDICATIONS ADMINISTERED BY HEAD OF LOSS PREVENTION AT THIS TIME. ASSESSMENT PERFORMED PER FLOWSHEET. DAUGHTER AT BEDSIDE. PT REMAINS CONFUSED TO TIME, PLACE AND SITUATION. PT DENIES PAIN. UP IN CHAIR PER PHYSICAL THERAPY. CALL LIGHT IN REACH, WILL CONTINUE WITH PLAN OF CARE.
[2016-05-31 10:57] LABS: APTT 31.5 SECONDS (22.8-39.4); INR 1.16 (0.85-1.17); PROTIME 14.6 SECONDS (11.6-15.0)
--- NOTE | 2016-05-31 12:05 | NUR ---
IV SITE TO RIGHT WRIST TENDER TO TOUCH, BUT NO S/S OF INFILTRATION. WILL RE-SITE IV FOR PT'S COMFORT. FAMILY REMAINS AT BEDSIDE. WILL CONTINUE WITH PLAN OF CARE.
--- NOTE | 2016-05-31 13:00 | NUR ---
20G IV SITED TO PT'S LEFT AC X2 ATTEMPTS. PT TOLERATED WITH MINIMAL COMPLAINTS OF PAIN. IV TO RIGHT WRIST D/C WITH CATH TIP INTACT. PT BEING TAKEN TO IR FOR LUMBAR PUNCTURE. WILL MONITOR PT WHEN SHE RETURNS TO HER ROOM.
--- NOTE | 2016-05-31 14:23 | NUR ---
PT BACK TO ROOM FROM IR FOR LUMBAR PUNCTURE. SITE REMAINS C/D/I. INCONTINENCE CARE PROVIDED AND PRN ULTRAM ADMINISTERED FOR HEADACHE PAIN. DAUGHTER REMAINS AT BEDSIDE. CALL LIGHT IN REACH, WILL CONTINUE WITH PLAN OF CARE.
[2016-05-31 15:24] LABS: APPEARANCE - CSF CLEAR; RBC - CSF 0 cmm (0-0)
[2016-05-31 15:45] LABS: GLUCOSE - CSF 46 MG/DL (40-75); PROTEIN - CSF 46 MG/DL (12-60)
--- NOTE | 2016-05-31 17:36 | NUR ---
OT NOTE: RUIZ COMPLETED UE POSITIONING FOR DECREASED RISK OF SKIN BREAKDOWN. THANK YOU, JOSEPH DOLL/Mert
--- NOTE | 2016-05-31 18:09 | NUR ---
PRN ADVIL AND ZOFRAN ADMINISTERED AT THIS TIME. ADVIL GIVEN FOR HEADACHE AND ZOFRAN ADMINISTERED FOR NAUSEA WITHOUT EMESIS. DAUGHTER REMAINS AT BEDSIDE. WILL CONTINUE WITH PLAN OF CARE.
--- NOTE | 2016-05-31 18:38 | NUR ---
INCONTINENCE CARE PROVIDED FOR EPISODE OF URINE AT THIS TIME. DAUGHTER REMAINS AT BEDSIDE. CALL LIGHT IN REACH, WILL CONTINUE WITH PLAN OF CARE.
--- NOTE | 2016-05-31 19:00 | NUR ---
Bedside report received and care of pt assumed. pt lying in semi de la vega's position with eyes closed. IV in left AC patent with NS infusing at 100 ml / hr. Daughter is at bedside. Bed alarm in use and side rails up x2 for safety.
--- NOTE | 2016-05-31 22:24 | NUR ---
HS MEDICATIONS GIVEN TO INCLUDE PRN TRAMADOL PER REQUEST FOR PAIN. WILL CONTINUE TO MONITOR FOR NEEDS.
--- NOTE | 2016-06-01 02:30 | NUR ---
PT RESTING IN SUPINE POSITION WITH EYES CLOSED AND UNLABORED BREATHING. DAUGHTER IS AT BEDSIDE. BED ALARM IN USE.
--- NOTE | 2016-06-01 03:25 | NUR ---
PT WOKE UP VERY CONFUSED AND DISORIENTED. RE-ORIENTED TO TIME, PLACE AND SITUATION. GAVE ICE WATER AND SAT WITH PT A WHILE...FEELING BETTER AND HAS BETTER ORIENTATION TO SITUATION AND PLACE NOW. BED ALARM IN USE.
[2016-06-01 06:09] LABS: BASOPHILS 0.1 % (0.0-2.0); EOSINOPHILS 0.3 % (0-7); HEMATOCRIT 24.9 % (36.0-48.0); HEMOGLOBIN 8.7 g/dL (12-16); IMMATURE GRANULOCYTES 1.5 % (0-5); LYMPHOCYTES 3.5 % (15-50); MCH 35.7 pg (26.0-34.0); MCHC 34.9 g/dL (31.0-37.0); MEAN PLATELET VOLUME 10.4 fL (7.4-10.4); MONOCYTES 4.6 % (2-11); PLATELET COUNT 72 10x3/uL (130-400); RBC 2.44 10x6/uL (4.00-5.40); RDW 20.2 % (11.5-14.5)
--- NOTE | 2016-06-01 06:14 | NUR ---
PT HAD INCONTINENT EPISODE. BATHED PT AND CHANGED ALL LINENS AND GOWN. SIDE RAILS UP X2 FOR SAFETY.
[2016-06-01 06:32] LABS: ALBUMIN 2.4 g/dL (3.4-5.0); ALKALINE PHOSPHATASE 69 U/L (46-116); ALT (SGPT) 17 U/L (10-68); BILIRUBIN - TOTAL 0.92 mg/dL (0.2-1.3); CALC OSMOLALITY 265 mosm/kg (275-300); CALCIUM 7.6 mg/dL (8.5-10.1); CARBON DIOXIDE 25.1 mmol/L (21.0-32.0); CHLORIDE - SERUM 101 mmol/L (98-107); CREATININE - SERUM 0.7 mg/dL (0.6-1.3); GLUCOSE 82 mg/dL (74-106); POTASSIUM - SERUM 3.6 mmol/L (3.5-5.1); PROTEIN - SERUM 4.8 g/dL (6.4-8.2); SODIUM 134 mmol/L (136-145); UREA NITROGEN 11 mg/dL (7-18); eGFR NON AFRICAN AMERICAN 85 mL/min (90-120)
[2016-06-01 06:35] LABS: WBC 18.7 10x3/uL (4.8-10.8)
--- NOTE | 2016-06-01 08:58 | NUR ---
PT ASSESSMENT COMPLETE AWAKE AND ALERT ORINETED X 3 FAMILY AT BEDSIDE. COMPLAINS OF HEADACHE. ALSO HAS UPON ASSESSMENT NO BOWEL SOUNDS NOTED REPORTED TO DR FINE WILL MONITOR.
[2016-06-01 09:52] VITALS: BP 142/63
[2016-06-01 11:48] VITALS: BP 149/71
--- NOTE | 2016-06-01 14:37 | NUR ---
PT CONFUSED UNABLE TO FOLLOW COMMANDS WELL. TREATED FOR HEADACHE WITH ADVIL PER ORDER. TOLERATES WELL. WILL MONITOR DAUGHTER REMAINS AT BEDSIDE
[2016-06-01 15:49] VITALS: BP 126/59
[2016-06-01 16:15] LABS: ACID FAST SMEAR Negative (()); AFB SPECIMEN PROCESSING Not Indicated (())
--- NOTE | 2016-06-01 18:54 | NUR ---
NO ACUTE DISTRESS NOTED VOICES ALL NEEDS FAMILY AT BEDSIDE. CALL LIGHT INREACH SIDE RAILS UP X 2
[2016-06-01 20:00] VITALS: BP 146/66
--- NOTE | 2016-06-02 05:36 | NUR ---
ASSESSED AT THE BEGINNING OF THE SHIFT. PT IS VERY QUIET AND CAN TALK BUT IS NOT SAYING MUCH. SHE IS CONFUSED AND HER HAS SPENT THE NIGHT WITH HER. SHE IS INCONT. OF URINE AND STOOL SO WE HAVE BEEN CHANGING HER LINENS EACH TIME SHE IS SOILED WHEN WE TURN HER. SHE WAS ABLE TO TAKE HER MEDS WITHOUT PROBLEMS AT BEDTIME. THE BED IS LOW, RAILS UP X'S 2 WITH THE CALL LIGHT AT HAND.
[2016-06-02 05:48] LABS: BASOPHILS 0.1 % (0.0-2.0); EOSINOPHILS 0 % (0-7); HEMATOCRIT 25.3 % (36.0-48.0); HEMOGLOBIN 8.4 g/dL (12-16); IMMATURE GRANULOCYTES 0.7 % (0-5); LYMPHOCYTES 3.3 % (15-50); MCH 32.2 pg (26.0-34.0); MCHC 33.2 g/dL (31.0-37.0); MCV 96.9 fL (80.0-100.0); MEAN PLATELET VOLUME 11.6 fL (7.4-10.4); MONOCYTES 2.8 % (2-11); NEUTROPHILS 93.1 % (40-80); PLATELET COUNT 80 10x3/uL (130-400); RBC 2.61 10x6/uL (4.00-5.40); RDW 19.4 % (11.5-14.5); WBC 22.1 10x3/uL (4.8-10.8)
[2016-06-02 06:24] LABS: ALBUMIN 2.4 g/dL (3.4-5.0); ALKALINE PHOSPHATASE 85 U/L (46-116); ALT (SGPT) 17 U/L (10-68); BILIRUBIN - TOTAL 1.12 mg/dL (0.2-1.3); CALC OSMOLALITY 264 mosm/kg (275-300); CALCIUM 8.1 mg/dL (8.5-10.1); CARBON DIOXIDE 27.6 mmol/L (21.0-32.0); CHLORIDE - SERUM 98 mmol/L (98-107); CREATININE - SERUM 0.7 mg/dL (0.6-1.3); GLUCOSE 91 mg/dL (74-106); POTASSIUM - SERUM 3.4 mmol/L (3.5-5.1); PROTEIN - SERUM 5.3 g/dL (6.4-8.2); SODIUM 133 mmol/L (136-145); UREA NITROGEN 11 mg/dL (7-18); eGFR NON AFRICAN AMERICAN 85 mL/min (90-120)
[2016-06-02 07:08] VITALS: BP 120/64
--- NOTE | 2016-06-02 07:30 | NUR ---
PATIENT RECEIVED IN LOW JONES POSITION ALERT AND RESTING QUIETLY. RESPIRATIONS EVEN AND UNLABORED. FAMILY AT BEDSIDE. DENIES NEEDS. SIDE RAILS UP X2. BED IN LOW POSITION. CALL LIGHT IN REACH.
[2016-06-02 08:03] VITALS: BP 174/77
--- NOTE | 2016-06-02 08:38 | NUR ---
PATIENT ALERT IN HIGH JONES POSITION WITH PRESENT. RESPIRATIONS EVEN AND UNLABORED. SCHEDULED MEDICATION ADMINISTERED. WELL TOLERATED. SIDE RAILS UP X2. BED IN LOW POSITION. CALL LIGHT IN REACH. BED ALARM ON.
[2016-06-02 10:20] LABS: APPEARANCE HAZY (CLEAR); BILIRUBIN NEGATIVE (NEGATIVE); COLOR YELLOW (YELLOW); GLUCOSE NEGATIVE (NEGATIVE); KETONE SMALL mg/dL (NEGATIVE); LEUKOCYTE ESTERASE NEGATIVE (NEGATIVE); NITRITE NEGATIVE (NEGATIVE); PROTEIN 2+ mg/dL (NEGATIVE); UROBILINOGEN NORMAL (NORMAL)
[2016-06-02 10:22] LABS: FUNGUS STAIN Final report (())
[2016-06-02 10:32] LABS: BACTERIA FEW /hpf (NONE SEEN); EPITHELIAL CELLS 0-5 /hpf (0-5); GRANULAR CAST 0-5 /lpf (NONE SEEN); HYALINE CAST 0-5 /lpf (NONE SEEN); RED CELLS - URINE 0-5 /hpf (0-5); WHITE CELLS - URINE 0-5 /hpf (0-5)
--- NOTE | 2016-06-02 10:52 | NUR ---
PATIENT SITTING UP IN CHAIR AT BEDSIDE. NO SIGNS OF DISTRESS NOTED. FAMILY PRESENT. CALL LIGHT IN REACH. ALMA ALARM ON
[2016-06-02] MEDS ORDERED: FERREX 150 PLUS1 CAP PO (11:32)
[2016-06-02] MEDS ORDERED: HCTZ25 MG PO (11:32)
[2016-06-02] MEDS ORDERED: RESTORIL15 MG PO (11:32)
[2016-06-02] MEDS ORDERED: FLORAJEN3 CAPS460 MG PO (11:32)
[2016-06-02] MEDS ORDERED: PROTONIX40 MG PO (11:33)
[2016-06-02] MEDS ORDERED: SYNTHROID112 MCG PO (11:33)
--- NOTE | 2016-06-02 12:20 | NUR ---
CM REASSESSMENT NOTE: PATIENT HAS BEEN ACCEPTED TO IP REHAB AND WILL DISCHARGE THERE TODAY.
--- NOTE | 2016-06-02 12:40 | NUR ---
NUTRITION MONITORING & EVAL CHART REVIEWED, PT VISIT. REG DIET BUT PO INTAKE REMAINS POOR. PT WILL NOT TELL ME WHY SHE DOESN'T WANT TO EAT. NOTE PT ON REMERON WHICH SHOULD IMPROVE APPETITE. SPOUSE ENCOURAGES INTAKE AND ASSISTS PT WITH MEALS. WILL CONTINUE TO PROVIDE DIET, ENCOURAGE PO INTAKE. RD FOLLOWING
[2016-06-02 16:13] LABS: IGGS - IGG INDEX CSF 0.7 (0.0-0.7); IGGS - IGG SYNTHESIS RATE CSF 4.9 mg/day (-9.9 TO +3.3)
--- NOTE | 2016-06-02 16:15 | NUR ---
C/O HEADACHE. ADVIL GIVEN PER PRN ORDER. FAMILY PRESENT. SIDE RAILS UP X2. BED IN LOW POSITION. CALL LIGHT IN REACH.
[2016-06-02 17:11] LABS: MYELIN BASIC PROTEIN, CSF 2.2 ng/mL (0.0-1.2)
[2016-06-02 20:08] LABS: HSV 1 DNA (PCR) Negative (Negative); HSV 2 DNA (PCR) Negative (Negative)
--- NOTE | 2016-06-03 04:17 | NUR ---
ASSESSED PT AT THE BEGINNING OF THE SHIFT. WAS WAITING FOR HER TO BE TRANSFERED TO THE REHAB UNIT. FAMILY WAS AT THE BEDSIDE. REPORT WAS CALLED TO THE REHAB AND THEN SHE WAS TAKEN TO THE FLOOR VIA HER BED. ALL BELONGINGS WERE TAKEN WITH HER BY THE FAMILY AND THE ROOM WAS CHECKED PRIOR TO LEAVING.
[2016-06-07 14:26] LABS: FUNGUS MYCOLOGY CULTURE Preliminary report (())
[2016-06-09 06:15] LABS: VIRAL - RESULT No virus isolated. (())
== END 2016-06-02 20:00 | DRG 808 ==
LOC: D.MS 16:17 → OBSVTIME 16:17 → D.MS 16:17
PROVIDERS: Family Medicine; General Practice; Internal Medicine Hematology & Oncology; Radiology Diagnostic Radiology; ADMIT Family Medicine
PROC: 07DR3ZX Extraction of Iliac Bone Marrow, Percutaneous Approach, Diagnostic (ICD-10-PCS; principal; 2016-05-22)
PROC: 009U3ZX Drainage of Spinal Canal, Percutaneous Approach, Diagnostic (ICD-10-PCS; 2016-05-31)
PROC: B01B1ZZ Fluoroscopy of Spinal Cord using Low Osmolar Contrast (ICD-10-PCS; 2016-05-31)
DX: D61.818 Other pancytopenia (principal); R53.2 Functional quadriplegia; G93.41 Metabolic encephalopathy; N39.0 Urinary tract infection, site not specified; E86.0 Dehydration; R00.0 Tachycardia, unspecified; M06.9 Rheumatoid arthritis, unspecified; R41.3 Other amnesia; R53.1 Weakness; M35.3 Polymyalgia rheumatica; I10 Essential (primary) hypertension; E03.9 Hypothyroidism, unspecified; M32.9 Systemic lupus erythematosus, unspecified; Z85.72 Personal history of non-Hodgkin lymphomas; G93.89 Other specified disorders of brain; G47.00 Insomnia, unspecified

== ENCOUNTER 2016-06-02 19:48 | Inpatient (IN) | payer MEDICARE, OTHER ==
[~2016-06-02] VITALS: Ht 167.6 cm; Wt 56.2 kg
--- NOTE | 2016-06-02 01:15 | NUR ---
PT RESTING, EYES CLOSED. BED LOW. CLIN REACH. WCTM.
[~2016-06-02 19:48] MED LIST changes: +FERREX 150 PLUS1 CAP PO; +FLORAJEN3 CAPS460 MG PO; +HCTZ25 MG PO; +PROTONIX40 MG PO; +RESTORIL15 MG PO; +SYNTHROID100 MCG; +SYNTHROID112 MCG PO
--- NOTE | 2016-06-02 20:10 | NUR ---
PT ARRIVED TO UNIT VIA BED ACCOMPANIED BY FAMILY AND HOSPITAL STAFF. PT AND FAMILY WERE ORIENTED TO ROOM AND REHAB SCHEDULE. [facility] IS STAYING ALL NIGHT. BED LOW. CL IN REACH.
[2016-06-02 20:33] VITALS: BP 138/64
[2016-06-02 21:23] VITALS: BP 138/64
--- NOTE | 2016-06-02 21:35 | NUR ---
PT TOOK HS MEDS WITHOUT DIFFICULTY ONE AT A TIME. PT FAMILY AT BEDSIDE. WCPOC. BED LOW. CL IN THE [facility].
--- NOTE | 2016-06-02 23:35 | NUR ---
PT RESTING, EYES CLOSED. BED LOW. CL IN REACH. WCTM.
--- NOTE | 2016-06-03 06:23 | NUR ---
PT AM MEDS ADMINISTERED. PT COMPLETE BED CHANGE DUE TO INCONTNENCE. PT AND FAMILY DENY NEEDS.
[2016-06-03 06:48] LABS: BASOPHILS 0.1 % (0.0-2.0); EOSINOPHILS 0.3 % (0-7); HEMATOCRIT 25.2 % (36.0-48.0); HEMOGLOBIN 8.4 g/dL (12-16); IMMATURE GRANULOCYTES 0.6 % (0-5); LYMPHOCYTES 5.7 % (15-50); MCH 32.8 pg (26.0-34.0); MCHC 33.3 g/dL (31.0-37.0); MCV 98.4 fL (80.0-100.0); MEAN PLATELET VOLUME 9.6 fL (7.4-10.4); MONOCYTES 4.8 % (2-11); NEUTROPHILS 88.5 % (40-80); RBC 2.56 10x6/uL (4.00-5.40); RDW 19.6 % (11.5-14.5)
[2016-06-03 06:49] LABS: PLATELET COUNT 60 10x3/uL (130-400)
[2016-06-03 06:50] LABS: ANION GAP 8.2 mmol/L (8-16); CALCIUM 8.5 mg/dL (8.5-10.1); CARBON DIOXIDE 30.2 mmol/L (21.0-32.0); CREATININE - SERUM 0.8 mg/dL (0.6-1.3); POTASSIUM - SERUM 3.4 mmol/L (3.5-5.1)
[2016-06-03 07:00] VITALS: BP 177/89
--- NOTE | 2016-06-03 07:30 | NUR ---
PT IS RESTING IN BED WITH EYES CLOSED. AWOKE EASILY TO VERBAL STIMULI. PT ANSWERED YES, WHEN ASKED IF SHE WAS FEELING GOOD TODAY, BUT THEN DID NOTE ATTEMPT TO ANSWER ANY OTHER QUESTIONS. FELICIA FROM PT IN ROOM GETTING PT OOB FOR HER EVAL AT THIS TIME. GRANDDAUGHTER STAYING IN ROOM WITH PT.
--- NOTE | 2016-06-03 09:38 | NUR ---
PT RESTING IN BED WITH EYES OPEN. NO NEEDS VOICED. NO ACUTE DISTRESS NOTED.
--- NOTE | 2016-06-03 12:01 | NUR ---
PT IS RESTING IN BED FEEDING SELF LUNCH. NO NEEDS VOICED. NO SWALLOW PROBLEMS NOTED.
[2016-06-03 12:45] VITALS: Ht 167.6 cm; Wt 56.2 kg
--- NOTE | 2016-06-03 15:40 | NUR ---
PT IS RESTING IN BED VISITING WITH FAMILY MEMBERS. JUST FINISHED HER OT EVAL.
--- NOTE | 2016-06-03 18:41 | NUR ---
RESTING QUIETLY IN BED CALL LIGHT IN REACH
--- NOTE | 2016-06-03 20:40 | NUR ---
PT HS MEDS ADMINISTERED. DAUGHTER AT BEDSIDE. FAMILY AND PT DENY NEEDS. WCTM. BED LOW. CLIN [facility].
--- NOTE | 2016-06-03 22:15 | NUR ---
PT HAD EPISODE OF INCONTINENT B&B. PT BED AND CLOTHING COMPLETELY CHANGED. WCTM. BED LOW. CL IN REACH.
--- NOTE | 2016-06-04 01:00 | NUR ---
PT RESTING, EYES CLOSED. BED LOW. CL IN REACH.
--- NOTE | 2016-06-04 03:15 | NUR ---
PT RESTING, EYES CLOSED. RR ARE EVEN AND UNLABORED. WCTM. BED LOW. CL IN REACH.
--- NOTE | 2016-06-04 04:40 | NUR ---
PT HAD EPISODE OF INCONTINENT B&B. PT BRIEF, PINK PAD AND CLOTHING CHANGED. BED LOW. CL IN REACH.
[2016-06-04 07:00] VITALS: BP 132/66
--- NOTE | 2016-06-04 07:20 | NUR ---
PT RESTING IN BED WITH EYES CLOSED. PT MUMBLES WHEN SHOOK TO TRY TO AWAKEN, BUT OTHERWISE DOES NOT RESPOND. VS BP132/33, P86, R 17, T 101.3AX. DR ZURITA NOTIFIED. NEW ORDERS NOTED. DAUGHTER IS AT BEDSIDE. SR'S ARE UP X 3 IN BED. CALL LIGHT AND BEDSIDE TABLE ARE WITHIN EASY REACH.
--- NOTE | 2016-06-04 07:30 | NUR ---
SLEEPING.CL IN REACH.NO DISTRESS NOTED.
--- NOTE | 2016-06-04 12:01 | NUR ---
PT EATING LUNCH WITH ASSIST FROM FAMILY MEMBER. NO ACUTE DISTRESS NOTED.
--- NOTE | 2016-06-04 15:00 | NUR ---
PT IS RESTING QUIETLY IN BED WITH EYES CLOSED. RESPS ARE EVEN AND UNLABORED.
[2016-06-04 19:00] VITALS: BP 137/68
--- NOTE | 2016-06-04 19:00 | NUR ---
ASSISTED DAY SHIFT WELDER APPRENTICE COMBINATION TO REPOSITION PATIENT UP IN BED AFTER PATIENT WAS CHANGED DUE TO URINE INCONTINENCE.
--- NOTE | 2016-06-04 21:55 | NUR ---
PATIENT AWAKE. MINIMALLY VERBALLY RESPONSIVE. WILL ANSWER WITH 1 TO 2 WORD ANSWERS IF COACHED INTO IT. ORIENTED TO SELF ONLY. ASSESMENT AND HS MEDS COMPLETE. PATIENT DENIES NEEDS.
--- NOTE | 2016-06-04 23:50 | NUR ---
RESTING QUIETLY IN BED, EYES CLOSED.
[2016-06-05] VITALS (18 sets, daily range): BP systolic 108–137; BP diastolic 53–70
--- NOTE | 2016-06-05 02:00 | NUR ---
IN BED, EYES CLOSED. RESTING QUIETLY.
--- NOTE | 2016-06-05 03:50 | NUR ---
RESTING IN BED, RESPIRATIONS ARE QUIET AND UNLABORED.
--- NOTE | 2016-06-05 05:35 | NUR ---
RSTING IN BED, EYES CLOSED.
[2016-06-05 06:17] LABS: HEMATOCRIT 23.4 % (36.0-48.0); HEMOGLOBIN 7.9 g/dL (12-16); MCH 32.2 pg (26.0-34.0); MCHC 33.8 g/dL (31.0-37.0); MEAN PLATELET VOLUME 11.2 fL (7.4-10.4); PLATELET COUNT 57 10x3/uL (130-400); RBC 2.45 10x6/uL (4.00-5.40); RDW 19.4 % (11.5-14.5)
[2016-06-05 06:23] LABS: MCV 95.5 fL (80.0-100.0); WBC 2.7 10x3/uL (4.8-10.8)
[2016-06-05 06:45] LABS: CALC OSMOLALITY 266 mosm/kg (275-300); CALCIUM 7.9 mg/dL (8.5-10.1); CARBON DIOXIDE 28.6 mmol/L (21.0-32.0); CHLORIDE - SERUM 97 mmol/L (98-107); CREATININE - SERUM 0.7 mg/dL (0.6-1.3); GLUCOSE 93 mg/dL (74-106); POTASSIUM - SERUM 3.1 mmol/L (3.5-5.1); SODIUM 133 mmol/L (136-145); THYROID STIMULATING HORMONE 2.73 uIU/mL (0.36-3.74); UREA NITROGEN 16 mg/dL (7-18); eGFR NON AFRICAN AMERICAN 85 mL/min (90-120)
[2016-06-05 06:47] LABS: ANISOCYTOSIS 1+; EOSINOPHILS 1 % (0-7); HYPOCHROMASIA OCC; LYMPHOCYTES 26 % (15-50); MONOCYTES 3 % (2-11); NEUTROPHILS 69 % (40-80); PLATELET ESTIMATE DECREASED
--- NOTE | 2016-06-05 07:30 | NUR ---
RESTING QUIETLY IN BED CALL LIGHT IN REACH
--- NOTE | 2016-06-05 08:00 | NUR ---
PATIENT IS A FEEDER. JAMES, OCCUPATIONAL THERAPIST FEEDING PAITNET. REGULAR DIET. PATIENT IS NON VERBAL EXSPECT FOR A SIMPLE YES-NO.
--- NOTE | 2016-06-05 09:38 | RHP ---
PATIENT: JOSE GUADALUPE VIEIRA MEDICAL RECORD: [id number] ACCOUNT: [id number] LOCATION:[facility]1110 : 36 ADMISSION DATE: 06/02/16 REHABILITATION HISTORY AND PHYSICAL EXAMINATION POST ADMISSION PHYSICIAN EXAMINATION Post-admission Physical Examination and History and Physical DATE OF ADMISSION: 06/02/2016 ADMITTING DIAGNOSES: Episodic metabolic encephalopathy with hypothyroidism, acute normal pressure hydrocephalus and acute cerebral ventriculomegaly. HISTORY OF PRESENT ILLNESS: The patient is admitted to inpatient rehab for nontraumatic brain episode involving metabolic encephalopathy with hypothyroidism. She has acute normal pressure hydrocephalus, acute cerebral ventriculomegaly. She is a 80-year-old female patient who is admitted for dehydration. She had progressive weakness and a decline in her health in the past 3-4 months prior to her acute hospital admit according to her family and having some incontinence episodes, lack of appetite, some memory difficulties. She has got a history of non-Hodgkin's lymphoma and receiving treatment with chemo in 2011. She has been noted to have leukopenia, anemia, thrombocytopenia, UTI, debility and some insomnia. She was independent with her ADLs and mobility prior to her progressive decline over the past couple of months. She was using a rolling walker just prior to her acute hospital admit. She is currently min assist to max assist with ADLs and is mod assist to max assist with other function. She lives at home with her and plans to return back to her prior level of functioning or hopefully better to get back there. She will definitely need inpatient rehab to get to that point. COMORBIDITIES: Include rheumatoid arthritis, UTI, cerebral ventriculomegaly, acute normal pressure hydrocephalus, functional quadriplegia, anemia, leukopenia, asthenia, memory loss. She got a history of non-Hodgkin's lymphoma and also debility. PAST MEDICAL HISTORY: Significant for hypothyroidism, hypertension, lupus, polymyalgia rheumatica, diverticular disease, osteoarthritis, migraines, cataracts, glaucoma, hypertension, lymphoma, cancer of the face and abdomen and also autoimmune disorder. PAST SURGICAL HISTORY: Includes right breast surgery for an abscess. She has had a hysterectomy. She has also had surgery to her hand. ALLERGIES: SULFA AND ZOLPIDEM. CURRENT MEDICATIONS: Include Tylenol 650 mg q.4 hours p.r.n., Protonix 40 mg daily, Synthroid 112 mcg daily, ____ 460 mg daily, B12 of 1000 mcg daily, vitamin D 400 units daily, hydrochlorothiazide 12.5 mg b.i.d., lisinopril 20 mg b.i.d., Restoril 15 mg at bedtime and Niferex 1 cap b.i.d. HABITS: No alcohol or tobacco use. FAMILY HISTORY: Noncontributory. SOCIAL HISTORY: The patient hopes to return back home and get back to her prior HISTORY AND PHYSICAL [id number] JOSE GUADALUPE VIEIRA level of functioning or improve if possible. REVIEW OF SYSTEMS: GENERAL: Does complain of some weakness, but is improving. HEENT: Denies cold, cough, or congestion. CARDIOVASCULAR: Denies chest pain. PHYSICAL EXAMINATION: VITAL SIGNS: Stable, afebrile. GENERAL: An elderly female in no acute distress, alert upon exam. HEENT: Normocephalic, atraumatic. Mucosa moist. NECK: Supple. No lymphadenopathy. LUNGS: Clear at this time. HEART: Regular rate and rhythm. ABDOMEN: Benign. EXTREMITIES: No clubbing, cyanosis or edema. NEUROLOGIC: She seems emotionally intact. LABORATORY DATA: Her white count 9000, H&H 8 and 25 and platelet count 60,000. Her sodium is 132, potassium 3.4, BUN and creatinine of 19 and 0.8 and blood sugar is noted to be 97. ASSESSMENT: This is a 80-year-old female patient admitted to rehab with a working diagnosis of episodic metabolic encephalopathy with hypothyroidism, normal pressure hydrocephalus and cerebral ventriculomegaly. The patient has potential to make improvement. We instituted the following multidisciplinary therapies including to, but not limited to physical, occupational, respiratory, speech, nutritional services, prosthetics and orthotics. Given her complex condition and risk for more complications, rehabilitation services cannot be provided at a low level of care such as a [facility]p facility. PLAN: 1. Admit to [facility] rehab for intensive inpatient therapy to include the following disciplines: A. Physical therapy to improve gait, all transfer skills and bed mobility to a modified independent level. B. Occupational therapy to improve activities of daily living to a modified independent level. C. Case management to assist with discharge planning and placement options. D. Nutrition to assist with nutritional needs. E. Rehabilitation nursing to assist in monitoring the patient's underlying medical conditions and to assist with any type of bowel or bladder management. 2. The patient's current medications and medical care will be continued. 3. The patient will be placed on standard fall precautions. 4. The patient's estimated length of stay is approximately 7-10 days. 5. We will go ahead and monitor closely. I will go ahead and keep her primary doctor, Dr. Corley up to date on her current situation. We will consult neurosurgery again if needed and I will discuss during care team staff meeting this week. TRANSINT:[id number] Voice Confirmation ID: [id number] DOCUMENT ID: [id number] HISTORY AND PHYSICAL [id number] JOSE GUADALUPE VIEIRA SCOTT MD at 0938 CC: [id number] DICTATION DATE: 06/03/16 1449 FUR TANNER: 06/03/16 1905 ADM IN [place] [id number] [place] [address]
--- NOTE | 2016-06-05 10:40 | NUR ---
JAMES, OCCUPATIONAL THERIPIST BROUGHT PATIENT BACK TO ROOM. PATIENT BECAME UNRESPONSIVE. HAD ABOUT 100 CC OF UNDIGESTED EMESIS. RESPITORY THERPIST WENT INTO ROOM AND SUCTIONED PATIENT. RAPID RESPONSE CALLED. V/S P111, R22, PO 95%. B/P 116/57. OXYGEN ON AT 2L PER N/C. CHEST X-RAY ORDER. H AND H LOW, TO GIVE TWO UNITS OF PRBC, TYPE AND CROSS DRAWN. FAMILY, DAUGHTER BG NOTIFED. VERBAL OK FOR TWO UNITS OF PRBC.
--- NOTE | 2016-06-05 11:14 | NUR ---
PATIENT CONTINOUS TO BE RESPONSIVE. RESTING WELL IN BED. WILL CONTINUE TO MONITOR. DR. Macho ZURITA NOTIFED IN REGARDS TO RAPID RESPONSE
--- NOTE | 2016-06-05 12:32 | NUR ---
THIS NURSE ASKED SPEECH THERAPIST TO FEED PATIENT LUNCH AND OBSERVE SWALLOWING. PHARMACOVIGILANCE SAFETY EXPERT FEEDING PATIENT AT THIS TIME. SPEECH THERPAIST DID NOT COME TO ROOM TO OBSERVE
--- NOTE | 2016-06-05 13:20 | NUR ---
FIRST UNIT OF BRBC STARTED. Mert NOLAN RN, Tammy ELLIS LPN
--- NOTE | 2016-06-05 14:14 | NUR ---
Nutrition Follow Up: Chart reviewed. Noted rapid response called this am for pt. Pt is eating 48% meal avg on a regular diet. Wt stable. +BM 06/04/16. Meds and labs noted. Pt with fair po intake. Rec continue current diet. Will send Ensure with meals. RD following.
--- NOTE | 2016-06-05 16:08 | NUR ---
FIRST UNIT OF PRBC FINISHED. PATIENT TOLERATED WELL. SECOND UNIT OF PRBC STARTED.
--- NOTE | 2016-06-05 18:36 | NUR ---
DAUGHTER IN ROOM ET FEED PATIENT. SECOND UNIT OF PRBC CONTIUES TO RUN. NO ADVERSE REACTION NOTED
--- NOTE | 2016-06-05 18:50 | NUR ---
PATIENT IN BED, JUST FINISHING HER 2ND UNIT OF PRBC'S. DAUGHTER PRESENT AT BEDSIDE. PATIENT DENIES CURRENT NEEDS.
--- NOTE | 2016-06-05 19:15 | NUR ---
SECOND UNIT OF PRBC COMPLETED. NO ADVERSE REACTION NOTED
--- NOTE | 2016-06-05 20:20 | NUR ---
REMAINS IN BED, AWAKE. DAUGHTER PRESENT IN RECLINER.
--- NOTE | 2016-06-05 22:05 | NUR ---
ASSESSMENT AND HS MEDS COMPLETE. PATIENT REMAINS IN BED. TOOK HS MEDS WITH WATER WITH SLIGHT SWALLOWING DELAY, BUT NO COUGHING OR CHOKING NOTED, NOR POCKETING OF MEDICATIONS.
--- NOTE | 2016-06-06 00:25 | NUR ---
IN BED, EYES CLOSED. RESTING QUIETLY.
--- NOTE | 2016-06-06 02:00 | NUR ---
IN BED, EYES CLOSED. NO DISTRESS NOTED.
--- NOTE | 2016-06-06 04:45 | NUR ---
IN BED, EYES CLOSED. RESPIRATIONS UNLABORED.
--- NOTE | 2016-06-06 07:00 | NUR ---
PT WAS RECEIVED AT THE BEGINNING OF THIS SHIFT IN BED AWAKE AND ORIENTED TO PERSON. VITAL SIGNS; TEMP. 98.8, PULSE 105, RESP. 16, B/P 122/63, 02SAT. 96%. PT. REQUIRES TOTAL ASSIST WITH ALL ADL'S. WILL BE MONITORING HER AND ASSISTING PRN WITH ADL'S. NO SIGNS OF ANY DISCOMFORT OR DISTRESS. CALL LIGHT IS IN REACH.
[2016-06-06 10:56] VITALS: BP 122/63
--- NOTE | 2016-06-06 14:36 | NUR ---
PT WENT TO THERAPY THIS MORNING AND WAS JUST PLACED BACK TO BED THIS AFTERNOON. AT BEDSIDE. PT IS UNABLE TO DO ANYTHING FOR HERSELF. SHE IS TOTAL MAXIMUM ASSIST. SL WAS DC'D OUT OF LEFT AC. SIDE RAILS UP X 2. CALL LIGHT IS IN REACH. NO SIGNS OF DISCOMFORT OR DISTRESS.
--- NOTE | 2016-06-06 19:00 | NUR ---
PATIENT IN BED. DAUGHTER VISITING AT BEDSIDE IN RECLINER.
[2016-06-06 19:14] VITALS: BP 124/72
[2016-06-06 21:16] LABS: APPEARANCE CLEAR (CLEAR); BILIRUBIN NEGATIVE (NEGATIVE); COLOR YELLOW (YELLOW); GLUCOSE NEGATIVE (NEGATIVE); KETONE NEGATIVE (NEGATIVE); LEUKOCYTE ESTERASE TRACE (NEGATIVE); NITRITE NEGATIVE (NEGATIVE); PROTEIN 1+ mg/dL (NEGATIVE); UROBILINOGEN NORMAL (NORMAL)
[2016-06-06 21:17] LABS: BACTERIA MANY /hpf (NONE SEEN); WHITE CELLS - URINE 25-50 /hpf (0-5)
--- NOTE | 2016-06-07 06:30 | NUR ---
CLEANSED AND CHANGED PATIENT FROM LARGE URINARY INCONTINENCE IN BRIEF AND PINK PAD. GAVE PATIENT TYLENOL 650MG PO FOR PAIN LEVEL OF 7/10 IN ALL JOINTS AND GENERAL BODY. DAUGHTER REMAINS IN ROOM WITH PATIENT.
[2016-06-07 06:57] LABS: BASOPHILS 0.3 % (0.0-2.0); EOSINOPHILS 0 % (0-7); HEMATOCRIT 29.5 % (36.0-48.0); IMMATURE GRANULOCYTES 0.9 % (0-5); LYMPHOCYTES 13.4 % (15-50); MCH 31.5 pg (26.0-34.0); MCHC 33.9 g/dL (31.0-37.0); MCV 93.1 fL (80.0-100.0); MEAN PLATELET VOLUME 10.2 fL (7.4-10.4); MONOCYTES 6.5 % (2-11); NEUTROPHILS 78.9 % (40-80); PLATELET COUNT 59 10x3/uL (130-400); RBC 3.17 10x6/uL (4.00-5.40); RDW 19.8 % (11.5-14.5); WBC 3.4 10x3/uL (4.8-10.8)
--- NOTE | 2016-06-07 07:00 | NUR ---
PT WAS RECEIVED AT THE BEGINNING OF THIS SHIFT IN BED AWAKE AND ORIENTED ONLY TO SELF. PT IS TOTAL CARE WITH ASSIST GIVEN TO ALL ADL'S. PT HAS FLAT AFFECT AND DOESN'T SPEAK. VITAL SIGNS; TEMP. 99.8, PULSE 93, RESP. 15, B/P 119/60, 02SAT. 94%. WILL BE MONITORING HER. CALL LIGHT IS IN REACH. NO SIGNS OF ANY DISCOMFORT OR DISTRESS.
[2016-06-07 07:05] LABS: ANION GAP 12.3 mmol/L (8-16); CALCIUM 7.8 mg/dL (8.5-10.1); CARBON DIOXIDE 27.4 mmol/L (21.0-32.0); POTASSIUM - SERUM 3.7 mmol/L (3.5-5.1)
[2016-06-07 09:07] VITALS: BP 119/60
--- NOTE | 2016-06-07 17:03 | NUR ---
CARE TEAM MEETING: PATIENT DAUGHTERS ATTENDED MEETING. HER PCP IS DR. BAZZI. WILL CONTINUE TO FOLLOW WITH PATIENT DR. ZURITA HAS CONSULTED DR. FINE. TENATIVE DISCHARGE DATE IS 06/13/16.
--- NOTE | 2016-06-07 17:53 | NUR ---
PT. WAS SEEEN BY DR. ZURITA THIS MORNING. NEW ORDER RECEIVED FOR DR. FINE CONSULT FOR ANEMIA. PHONE CALL MADE TO DR. FINE'S OFFICE REGARDING THE CONSULT.
--- NOTE | 2016-06-07 18:50 | NUR ---
PATIENT IN BED. DAUGHTER VISITING AT BEDSIDE.
[2016-06-07 19:15] VITALS: BP 116/74
--- NOTE | 2016-06-07 20:35 | NUR ---
ASSESSMENT AND HS MEDS COMPLETE. ORIENTED X1 ONLY. FOLLOWS COMMANDS VERY POORLY. APPEARS UNABLE TO SEQUENCE WITHOUT CONSTANT CUEING. POCKETED A FEW MEDS AND HAD TO BE CUED TO SWALLOW THEM.
--- NOTE | 2016-06-07 22:05 | NUR ---
RESTING QUEITLY IN BED, EYES CLOSED. HOB UP 20 DEGREES.
--- NOTE | 2016-06-08 00:35 | NUR ---
RESTING IN BED, EYES CLOSED.
--- NOTE | 2016-06-08 02:15 | NUR ---
IN BED, EYES CLOSED. RESTING QUIETLY.
--- NOTE | 2016-06-08 04:20 | NUR ---
RESTING IN BED, EYES CLOSED. RESPIRING QUIETLY.
--- NOTE | 2016-06-08 05:35 | NUR ---
RESTING IN BED, EYES CLOSED. NO EVIDENT DISTRESS.
--- NOTE | 2016-06-08 07:50 | NUR ---
PT IS RESTING IN BED WITH EYES OPEN. RURAL CARRIER IS FEEDING HER BREAKFAST. PT EATING SLOWLY. NO SWALLOWING PROBLEMS NOTED. PT IS NOT SPEAKING WITH ME AT ALL, MAKING IT DIFFICULT TO GET A GOOD ASSESSMENT. SR'S ARE UP X 3 IN BED. CALL LIGHT AND BEDSIDE TABLE ARE WITHIN EASY REACH.
[2016-06-08 08:17] VITALS: BP 141/70
--- NOTE | 2016-06-08 09:15 | NUR ---
DR FINE HERE TO SEE PT. PT NOTED TO HAVE SPIT OUT HER MEDS, OR AT LEAST PART OF THEM. PT SPEAKING SOME WORDS WITH DR FINE. NO ACUTE DISTRESS NOTED.
--- NOTE | 2016-06-08 12:16 | NUR ---
PT RESTING IN BED. EATING LUNCH WITH ASSIST FROM RELIGIOUS LEADER.
--- NOTE | 2016-06-08 15:19 | NUR ---
PT RESTING IN BED WITH EYES CLOSED. NO DISTRESS NOTED. SPOUSE IS AT BEDSIDE.
--- NOTE | 2016-06-08 16:00 | NUR ---
RESTING QUIETLY.CL IN REACH.
--- NOTE | 2016-06-08 18:14 | NUR ---
PT RESTING IN BED. REFUSED TO ATTEMPT TO TAKE EVEN 1 BITE OF SUPPER. SPOUSE AT BEDSIDE.
[2016-06-08 19:10] VITALS: BP 132/70
--- NOTE | 2016-06-08 19:35 | NUR ---
PT RECEIVED IN BED WITH EYES OPEN. WOULD TURN TO LOOK WHEN SPOKEN TO BUT DID NOT SPEAK IN RETURN. NO SIGN/SYMPTOMS OF DISTRESS NOTED. CALL LIGHT IN REACH.
--- NOTE | 2016-06-09 01:24 | NUR ---
PT IN BED WITH EYES CLOSED AND CHEST RISING. NO SIGN/SYMPTOMS OF DISTRESS NOTED. CALL LIGHT IN REACH.
[2016-06-09 06:27] LABS: BASOPHILS 0.3 % (0.0-2.0); EOSINOPHILS 0 % (0-7); HEMATOCRIT 27.4 % (36.0-48.0); HEMOGLOBIN 9.5 g/dL (12-16); IMMATURE GRANULOCYTES 0.7 % (0-5); LYMPHOCYTES 14.9 % (15-50); MCH 32.5 pg (26.0-34.0); MCHC 34.7 g/dL (31.0-37.0); MCV 93.8 fL (80.0-100.0); MONOCYTES 9.6 % (2-11); NEUTROPHILS 74.5 % (40-80); PLATELET COUNT 62 10x3/uL (130-400); RBC 2.92 10x6/uL (4.00-5.40); RDW 20.1 % (11.5-14.5)
[2016-06-09 06:43] LABS: ANION GAP 11.6 mmol/L (8-16); CALCIUM 8.2 mg/dL (8.5-10.1); CARBON DIOXIDE 26.9 mmol/L (21.0-32.0); CREATININE - SERUM 0.9 mg/dL (0.6-1.3); POTASSIUM - SERUM 3.5 mmol/L (3.5-5.1)
--- NOTE | 2016-06-09 07:30 | NUR ---
RESTING QUIETLY IN BED CALL LIGHT IN REACH
--- NOTE | 2016-06-09 07:36 | NUR ---
PT IN BED WITH EYES CLOSED. PT NOT SWALLOWING MEDICATIONS, WILL HOLD IN MOUTH FOR A WHILE AND THEN SPIT OUT. MULTIPLE ATTEMPT TO ENCOURAGE PT TO SWALLOW. INCONTINENT OF BLADDER WITH TWO LINEN CHANGES THIS SHIFT. NO OTHER CONCERNS. CALL LIGHT IN REACH.
[2016-06-09 07:59] VITALS: BP 119/68
--- NOTE | 2016-06-09 10:35 | NUR ---
PT IS IN THERAPY AT THIS TIME.
--- NOTE | 2016-06-09 12:46 | NUR ---
PT REFUSED TO EAT LUNCH. SHE IS CLAMPING HER MOUTH SHUT WHEN MAINTENANCE ELECTRICIAN ATTEMPTS TO FEED HER.
--- NOTE | 2016-06-09 15:26 | NUR ---
PT IS PARTICIPATING IN THERAPY AT THIS TIME.
[2016-06-09 19:11] VITALS: BP 132/78
--- NOTE | 2016-06-09 19:30 | NUR ---
PT FAMILY AT BEDSIDE. PT RESTING, EYES OPEN. PT AND FAMILY DENY NEEDS. WCTM. BED LOW. CL IN REACH.
--- NOTE | 2016-06-09 21:50 | NUR ---
PT HS MEDS ADMINISTERED. PT HAD TO BE REMINDED TO SWALLOW SEVERAL TIMES WITH EACH PILL. PT COULD NOT SUCK THROUGH STRAW. ASSISTED PT TO DRINK STRAIGHT FROM CUP. PT WAS ABLE TO DRINK THIS WAY TO TAKE MEDS. PT DENIES NEEDS. WCTM. BED LOW. CL IN REACH.
--- NOTE | 2016-06-09 22:40 | NUR ---
PT BRIEF CHANGED DUE TO INCONTINENT URINE. PT DENIES NEEDS. WCTM. BED LOW. CLIN REACH.
--- NOTE | 2016-06-10 00:14 | NUR ---
PT RESTING, EYES CLOSED. BED LOW. CL IN REACH.
--- NOTE | 2016-06-10 02:41 | NUR ---
PT RESTING, EYES CLOSED. BED LOW. CLIN REACH.
--- NOTE | 2016-06-10 06:10 | NUR ---
PT AM MEDS ADMINISTERED. PT BRIEF CHANGED DUE TO INCONTINENT URINE. BED LOW. CL IN REACH.
[2016-06-10 07:00] VITALS: BP 142/67
--- NOTE | 2016-06-10 07:14 | NUR ---
RESTING QUIETLY IN BED CALL LIGHT IN REACH
--- NOTE | 2016-06-10 09:00 | NUR ---
MEDICATIONS FOR THIS PATIENT CRUSHED AND PUT IN PUDDING. PATIENT SPIT MOST OF THE MEDICATION OUT. PATIENT HAD EATTEN BREAKFAST WITHOUT POCKETING OR SPITTING BREAKFAST OUT
--- NOTE | 2016-06-10 10:00 | NUR ---
PHYSICAL THERAPIST IN PATIENTS ROOM. WORKING WITH PATIENT
--- NOTE | 2016-06-10 12:00 | NUR ---
VISITING WITH IN ROOM. FEEDING PATIENT LUNCH.
--- NOTE | 2016-06-10 15:58 | NUR ---
PATIENT RESTING IN BED AFTER THERAPY. CALL LIGHT WITHIN REACH.
--- NOTE | 2016-06-10 17:52 | NUR ---
PATIENTS IN ROOM. FEEDING PATIENT.
[2016-06-10 19:19] VITALS: BP 137/64
--- NOTE | 2016-06-10 19:53 | NUR ---
PT IN BED WITH HOB UP FOR COMFORT, WATCHING TV, PT ANSWERS YES AND NO QUESTIONS, BED IN LOWEST POSITION AND CALL LIGHT WITHIN REACH.
--- NOTE | 2016-06-10 21:50 | NUR ---
PT. IN BED WITH HOB UP FOR COMFORT WITH EYES OPEN. PT. DENIES ANY NEEDS AT THIS TIME AND HAS NO COMPLAINTS. CALL LIGHT WITHIN REACH.
--- NOTE | 2016-06-10 23:50 | NUR ---
PT IN BED WITH HOB UP FOR COMFORT, WATCHING TV, BED IN LOWEST POSITION AND CALL LIGHT WITHIN REACH.
--- NOTE | 2016-06-11 03:30 | NUR ---
PT IN BED WITH HOB UP FOR COMFORT, EYES OPEN, WATCHING TV, RESPIRATIONS EVEN AND UNLABORED, BED IN LOWEST POSITION AND CALL LIGHT WITHIN REACH.
[2016-06-11 07:00] VITALS: BP 166/74
--- NOTE | 2016-06-11 08:15 | NUR ---
PT RESTING IN BED WITH EYES OPEN PT REFUSED TO EAT PUT FOOD IN MOUTH AND ASKED PT TO SWALLOW SHE WOULD NOT AND FINALLY JUST SPIT IT ALL OUT EVEN THE LIQUIDS CALL LIGHT IN REACH WILL JONH
--- NOTE | 2016-06-11 09:30 | NUR ---
PT REFUSED ALL MEDS
--- NOTE | 2016-06-11 18:03 | NUR ---
PT RESTING IN BED WITH EYES OPEN CALL LIGHT IN REACH NO PROBLEMS WILL MONITER
--- NOTE | 2016-06-11 19:03 | NUR ---
RESTING QUIETLY IN BED CALL LIGHT IN REACH
--- NOTE | 2016-06-11 19:30 | NUR ---
PT FAMILY AT BEDSIDE. DENIES NEEDS. BED LOW. CLIN REACH.
--- NOTE | 2016-06-11 20:45 | NUR ---
PT TOOK ALL HS MEDS. PT TOOK PILLS ONE AT A TIME AND WITH REMINDING TO SWALLOW HAD NO DIFFCULTY. DENIES NEEDS. BED LOW. CL IN REACH.
--- NOTE | 2016-06-11 21:00 | NUR ---
PT BED BATH GIVEN X2 ASSIST. PT DENIES NEEDS. BED LOW. CLIN REACH.
[2016-06-11 21:35] VITALS: BP 153/63
[2016-06-12] VITALS (19 sets, daily range): BP systolic 100–146; BP diastolic 42–80
--- NOTE | 2016-06-12 00:30 | NUR ---
PT RESTING, EYES CLOSED. BED LOW. CL IN REACH.
--- NOTE | 2016-06-12 02:45 | NUR ---
PT RESTING, EYES CLOSED. BED LOW. CL IN REACH.
[2016-06-12 07:17] LABS: BASOPHILS 0.3 % (0.0-2.0); EOSINOPHILS 0 % (0-7); HEMATOCRIT 23.5 % (36.0-48.0); HEMOGLOBIN 8.3 g/dL (12-16); IMMATURE GRANULOCYTES 0.8 % (0-5); LYMPHOCYTES 14.4 % (15-50); MCH 34.3 pg (26.0-34.0); MCHC 35.3 g/dL (31.0-37.0); MCV 97.1 fL (80.0-100.0); MEAN PLATELET VOLUME 10.2 fL (7.4-10.4); NEUTROPHILS 73.5 % (40-80); RBC 2.42 10x6/uL (4.00-5.40); RDW 21.2 % (11.5-14.5); WBC 3.8 10x3/uL (4.8-10.8)
[2016-06-12 07:23] LABS: PLATELET COUNT 78 10x3/uL (130-400)
[2016-06-12 07:29] LABS: ANION GAP 13.4 mmol/L (8-16); CALCIUM 8.5 mg/dL (8.5-10.1); CARBON DIOXIDE 24.6 mmol/L (21.0-32.0)
--- NOTE | 2016-06-12 08:15 | NUR ---
PT REFUSES TO SWALLOW CAN NOT FEED HER BREAKFAST
--- NOTE | 2016-06-12 09:45 | NUR ---
PT REFUSES TO SWALLOW MEDS
--- NOTE | 2016-06-12 12:17 | NUR ---
IV ACCESS-22 GAUGE INSERTED IN RIGHT FOREARM FOR ACCESS. SHEAN MARTIN RN
--- NOTE | 2016-06-12 12:40 | NUR ---
PT 1ST UNIT OF BLOOD STARTED GOING THRU 22 GAUGE PRE MEDICATED NO PROBLEMS VITALS STABLE WILL MONITER
--- NOTE | 2016-06-12 13:38 | NUR ---
IN THERAPY.PRBC'S INFUSING.
--- NOTE | 2016-06-12 13:59 | NUR ---
PT UP IN THERAPY GYM WITH PT
--- NOTE | 2016-06-12 19:25 | NUR ---
IN BED, AWAKE. 1 HOUR POST TRANSFUSION VS TAKEN.
--- NOTE | 2016-06-12 21:30 | NUR ---
ASSESSMENT COMPLETE. PATIENT IS NPO PER NURSING ORDER SHE POCKETS THEN CHOKES ON ALL MEDS/FOOD/FLUIDS. ORIENTED TO SELF ONLY. FLAT AFFECT. CLEANSED HER AND CHANGED HER FROM LARGE URINE INCONTINENCE.
--- NOTE | 2016-06-12 22:35 | NUR ---
RESTING QUIETLY IN BED, EYES CLOSED.
--- NOTE | 2016-06-13 00:10 | NUR ---
RESTING IN BED, EYES CLOSED. NO DISTRESS NOTED.
--- NOTE | 2016-06-13 02:10 | NUR ---
RESTING IN BED, EYES CLOSED. SNORING SOFTLY. NO DISTRESS NOTED AT THIS TIME.
--- NOTE | 2016-06-13 04:40 | NUR ---
RESTING QUIETLY IN BED, EYES CLOSED. RESPIRATIONS UNLABORED.
--- NOTE | 2016-06-13 06:00 | NUR ---
AWOKE PATIENT. FLUSHED HER RIGHT FA S/L WITH 10ML NS. REMAINS PATENT.
--- NOTE | 2016-06-13 07:35 | NUR ---
EASILY AWAKENED,NODS HEAD AND STATES YES WHEN ASKED IF EVEYTHING IS OK.CL IN REACH.
[2016-06-13 08:00] VITALS: BP 131/75
--- NOTE | 2016-06-13 08:55 | NUR ---
PT IS RESTING IN BED WITH HOB ELEVATED 45 DEGREES. SPOONFED MOST OF HER SCRAMBLED EGGS, AND ENSURE. REFUSED TO TRY ANYTHING MORE. PT IS WIDE AWAKE AND STARING AROUND THIS AM. ANSWERING MOST QUESTIONS WITH SHORT ANSWERS. NO CHOKING NOTED WHILE EATING, BUT PT WAS NOTED TO POCKET SOME FOODS, AND HAD TO BE REMINDED TO SWALLOW FREQUENTLY. O2 IS ON @ 2 LPM PER NC. NO SOB NOTED. SR'S ARE UP X 3 IN BED. CALL LIGHT AND BEDSIDE TABLE ARE WITHIN EASY REACH.
--- NOTE | 2016-06-13 10:49 | NUR ---
RECIEVED CALL FROM DR FINE TO GET A STAT CBC. IF IT HAS NOT COME UP, SHE WANTS DR ZURITA NOTIFIED AND PT TO BE TRANSFERRED TO ACUTE.
[2016-06-13 11:05] LABS: BILIRUBIN - DIRECT 2.17 mg/dL (0.00-0.30)
[2016-06-13 11:10] LABS: LYMPHOCYTES 9.3 % (15-50); MCH 33.2 pg (26.0-34.0); MCHC 36.2 g/dL (31.0-37.0); NEUTROPHILS 77.2 % (40-80); PLATELET COUNT 69 10x3/uL (130-400); WBC 4.3 10x3/uL (4.8-10.8)
[2016-06-13 11:15] LABS: HEMATOCRIT 30.4 % (36.0-48.0); MCV 91.8 fL (80.0-100.0); RBC 3.31 10x6/uL (4.00-5.40)
[2016-06-13 11:26] LABS: APTT 25.5 SECONDS (22.8-39.4); INR 1.14 (0.85-1.17); PROTIME 14.5 SECONDS (11.6-15.0)
--- NOTE | 2016-06-13 11:28 | NUR ---
DUE TO DECLINE IN HEALTH PATIENT DISCHARGED REHAB AND ADMITTED TO ACUTE FLOOR
[2016-06-13 11:36] LABS: BILIRUBIN - INDIRECT 1.53 mg/dL (0.00-1.00); BILIRUBIN - TOTAL 3.7 mg/dL (0.2-1.3)
--- NOTE | 2016-06-13 11:57 | NUR ---
22 G SALINE LOCK STARTED IN LFA, PENDING DC TO ACUTE CARE. IV STARTED USING STERILE TECHNIQUE. SECURED WITH OPSITE, AND CLEAR TAPE. FLUSHED WITH NS.
--- NOTE | 2016-06-13 12:39 | NUR ---
Nutrition Follow Up: Chart reviewed. Per MD note pt has declined mentally and physically; She can no longer swallow. Pt is to be d/c to acute care today. Pt with 9% meal avg on a regular mechanical soft diet. She is receiving Ensure with meals. Labs reviewed. Meds noted including Megace. RD following.
--- NOTE | 2016-06-13 12:57 | NUR ---
REPORT CALLED TO MED 2 NURSE. PT EATING LUNCH WITH ASSIST FROM HER DAUGHTER. WILL TRANSFER WHEN FINISHED.
--- NOTE | 2016-06-13 13:30 | NUR ---
PT TRANSFERRED TO ROOM [address] SANCHEZ SERVICES.
== END 2016-06-13 13:30 | disposition short-term general hospital (02) | DRG 70 ==
LOC: D.REHAB 19:48
PROVIDERS: Internal Medicine Hematology & Oncology; ADMIT Emergency Medicine
DX: G93.41 Metabolic encephalopathy (principal); R53.2 Functional quadriplegia; G91.2 (Idiopathic) normal pressure hydrocephalus; N39.0 Urinary tract infection, site not specified; F05 Delirium due to known physiological condition; E03.9 Hypothyroidism, unspecified; G93.89 Other specified disorders of brain; M06.9 Rheumatoid arthritis, unspecified; D64.9 Anemia, unspecified; D72.819 Decreased white blood cell count, unspecified; R53.1 Weakness; J45.909 Unspecified asthma, uncomplicated; F03.90 Unspecified dementia, unspecified severity, without behavioral disturbance, psychotic disturbance, mood disturbance, and anxiety

== ENCOUNTER 2016-06-13 13:27 | Inpatient (IN) | payer MEDICARE, OTHER ==
[~2016-06-13] VITALS: Ht 167.6 cm; Wt 87.0 kg
--- NOTE | ~2016-06-13 | EEG ---
PATIENT:JOSE GUADALUPE VIEIRA DATE OF SERVICE: 06/13/16 MEDICAL RECORD: [id number] DATE OF : 37 LOCATION:D.211 D.M2 ADMISSION DATE: 06/13/16 REFERRING PHYSICIAN: INTERPRETING PHYSICIAN: ANAYELI KEARNS MD DATE OF SERVICE: 06/26/2016 Referred as an inpatient by myself, currently in room 2112. ELECTROENCEPHALOGRAM NUMBER: [id number] DATE OF EXAMINATION: 06/26/2016 at 2:30 p.m. TECHNICAL DATA: This electroencephalographic recording consists of approximately 20 minutes of data collection utilizing the international 10/20 system of electrode placement and both referential and non-referential montages. Sixteen channels of electrocerebral recording are accompanied by a 17th channel dedicated to the electrocardiographic rhythm and 2 channels of electromyographic recording. Recording is performed in the awake and drowsy states utilizing activation by photic stimulation. ELECTROENCEPHALOGRAPHIC DATA: The awake state comprises approximately 70% of the recorded electrocerebral activity. Electromyographic artifact is prominent and rapid eye movements are seen. The posterior dominant background is poorly developed and seen only on occasion. The patient will not close her eyes voluntarily and the effective eye closure is seen only with the eyes held close. The posterior dominant background when seen consists of a semi-arrhythmic waxing and waning 5-6 Hz theta activity. Also seen is an intermittent irregular generalized and symmetric 2-3 Hz delta slowing, which is irregular in morphology, generalized and symmetric in distribution occurring for periods of 1-3 seconds approximately once every 1-2 pages. The drowsy state comprises the remaining portion of the recorded electrocerebral activity. Electromyographic artifact is diminished and rapid eye movements are not seen. No focal slowing is identified. No epileptiform discharges are seen. Photic stimulation induces no abnormal change in the recorded electrocerebral activity. INTERPRETATION: 1. Intermittent slow, generalized (awake and drowsy). 2. Background slow. This electroencephalographic recording is indicative of a moderate diffuse encephalopathy. TRANSINT:[id number] Voice Confirmation ID: [id number] DOCUMENT ID: [id number] ELECTROENCEPHALOGRAM REPORT [id number] JOSE GUADALUPE VIEIRA ANAYELI KEARNS MD CC: [id number] DICTATION DATE: 06/27/1615 ENVIRONMENTAL SYSTEMS COORDINATOR: 06/27/16 0824 ADM IN [facility] [id number] [place] [id number]
--- NOTE | 2016-06-13 13:20 | NUR ---
PT RECEIVED TO ROOM 2111, VIA BED TRANSFERED BY JAYY PACE. PT AND FAMILY ORIENTED TO ROOM AND CALL LIGHT. PT ASSESSED AND WILL START PLAN OF CARE. PT AND FAMILY DENY ANY NEEDS AT THIS TIME. CALL LIGHT IN REACH, NAD NOTED, WILL CONTINUE TO MONITOR.
[2016-06-13 14:21] LABS: ALBUMIN 2.5 g/dL (3.4-5.0); ANION GAP 13.7 mmol/L (8-16); BILIRUBIN - TOTAL 2.9 mg/dL (0.2-1.3); CALCIUM 8.4 mg/dL (8.5-10.1); CARBON DIOXIDE 24.3 mmol/L (21.0-32.0); CREATININE - SERUM 1.2 mg/dL (0.6-1.3); PROTEIN - SERUM 5.7 g/dL (6.4-8.2)
[2016-06-13 14:30] LABS: THYROID STIMULATING HORMONE 4.43 uIU/mL (0.36-3.74)
[2016-06-13 15:09] VITALS: BP 142/66; BMI 22.3
[2016-06-13 15:25] VITALS: BP 132/72
--- NOTE | 2016-06-13 18:16 | NUR ---
REMINDED PT AND FAMILY THAT PT IS NPO UNTIL SHE IS RE-EVALUATED BY SPEECH THERAPIST.
--- NOTE | 2016-06-13 18:26 | NUR ---
ASSESSMENT COMPLETE, 02 AT 2 LITER VIA NC. IV TO RIGHT FOREARM WITH D5 1/2 NS INFUSING AT 30, SITE CLEAN AND DRY. DAUGHTER AT BED SIDE. SUCTION SET UP AT DAUGHTERS REQUEST. NO OTHER NEEDS AT THIS TIME, BED LOW, CL IN REACH.
[2016-06-13 19:00] VITALS: BP 148/78
--- NOTE | 2016-06-13 21:28 | NUR ---
HEMOCYTE PLUS HELD DUE TO PT PT FAILING SWALLOW EVAL, WILL CONT TO MONITOR.
[2016-06-14 00:34] VITALS: BP 138/83
--- NOTE | 2016-06-14 02:19 | NUR ---
RESTING WITH EYES CLOSED, RESPERATIONS EVEN, NO S/S DISTRESS NOTED.
--- NOTE | 2016-06-14 03:35 | NUR ---
BATH AND LINEN CHANGE COMPLETE.
[2016-06-14 04:00] VITALS: BP 143/71
[2016-06-14 05:40] LABS: BASOPHILS 0.3 % (0.0-2.0); EOSINOPHILS 0.3 % (0-7); HEMATOCRIT 30.3 % (36.0-48.0); HEMOGLOBIN 10.4 g/dL (12-16); IMMATURE GRANULOCYTES 1.2 % (0-5); MCH 32.6 pg (26.0-34.0); MCHC 34.3 g/dL (31.0-37.0); MONOCYTES 12.5 % (2-11); NEUTROPHILS 70.7 % (40-80); PLATELET COUNT 72 10x3/uL (130-400); RBC 3.19 10x6/uL (4.00-5.40); RDW 21.3 % (11.5-14.5); WBC 3.3 10x3/uL (4.8-10.8)
[2016-06-14 05:50] LABS: INR 1.19 (0.85-1.17)
[2016-06-14 05:51] LABS: % SATURATION 35 % (15-55); IRON 60 ug/dl (35-150); TOTAL IRON BIND CAPACITY 167 ug/dl (260-445); UNSAT IRON BIND CAPACITY 107 ug/dl (150-375)
[2016-06-14 06:14] LABS: BILIRUBIN - DIRECT 1.64 mg/dL (0.00-0.30); T4 THYROXIN - FREE 1.51 ng/dL (0.76-1.46); T4 THYROXINE 9.8 ug/dL (4.7-13.3)
[2016-06-14 07:00] LABS: ALBUMIN 2.4 g/dL (3.4-5.0); ANION GAP 12.9 mmol/L (8-16); BILIRUBIN - TOTAL 2.79 mg/dL (0.2-1.3); CALCIUM 8.4 mg/dL (8.5-10.1); CARBON DIOXIDE 25.8 mmol/L (21.0-32.0); CREATININE - SERUM 1.1 mg/dL (0.6-1.3); POTASSIUM - SERUM 3.7 mmol/L (3.5-5.1); PROTEIN - SERUM 6.2 g/dL (6.4-8.2)
--- NOTE | 2016-06-14 07:02 | NUR ---
PT SITTING UP IN BED SLEEPING NO S/S DISTRESS NOTED DAUGHTER AT BEDSIDE WILL CONT TO MONITOR
[2016-06-14 07:18] LABS: MAGNESIUM - SERUM 1.6 mg/dL (1.8-2.4); PHOSPHOROUS 3.2 mg/dL (2.5-4.9)
[2016-06-14 07:52] VITALS: BP 189/87
--- NOTE | 2016-06-14 09:29 | NUR ---
PT WAS TURNED DURING ASSESSMENT TO MAKE SURE BOTTOM SKIN INTACT. SKIN IS WNL WITHOUT ANY S/S BREAKDOWN OR REDNESS. PT HAD LARGE BM DURING TURNING, SENT SPECIMEN TO LAB ORDERED. STOOL DARK IN COLOR, BUT FORMED
--- NOTE | 2016-06-14 10:18 | NUR ---
TALKED WITH JAVAD BONILLA ABOUT PT BP HIGH AND UNABLE TO GIVE PT ANY PILLS DUE TO FAILING SWALLOW EVAL. SHE IS ADDING PRN APPRESOLINE
[2016-06-14 11:13] VITALS: BP 141/78
--- NOTE | 2016-06-14 11:28 | CN ---
PATIENT NAME:JOSE GUADALUPE VIEIRA MEDICAL RECORD: [id number] : 37 LOCATION:D. D.2112 ADMIT DATE: 06/13/16 ACCOUNT: [id number] CONSULTING PHYSICIAN: LOUIE IZQUIERDO MD REFERRING PHYSICIAN: CHIN BAZZI DO DATE OF CONSULTATION: 06/13/2016 Gastroenterology Consultation REFERRING PHYSICIAN: Harish Rios MD. HISTORY OF PRESENT ILLNESS: The patient is a 80-year-old white female with a history of recently diagnosed normal pressure hydrocephalus, acute encephalopathy, chronic anemia, and on chart review looks possibly non-Hodgkin's lymphoma, who was basically admitted from rehab with increasing problems with a declining performance status, persistent anemia, and now has a few couple of weeks of progressive oropharyngeal dysphagia. She completely ____ the swallow study earlier today. A head CT did not reveal any acute changes. She was also found to have some elevated liver enzymes with a total bilirubin of around 2.5. I was asked to see the patient in this regard. The patient cannot give me any history whatsoever. She is awake, but not alert at all. Her daughter was in the room and denies any history of dementia, however. There is apparently no past history of any liver disease. No history of alcohol use, etc. PAST MEDICAL HISTORY: As above. She also has history of rheumatoid arthritis as well as thyroid disease. PAST SURGICAL HISTORY: Remarkable for appendectomy, hysterectomy, hand surgery, breast biopsy. ALLERGIES: PENICILLIN, SULFA, AND AMBIEN. MEDICATIONS: Include iron, Restoril, HCTZ, Synthroid and Protonix as well as lisinopril. FAMILY HISTORY: Negative for GI diseases. SOCIAL HISTORY: The patient is a nonsmoker, nondrinker. REVIEW OF SYSTEMS: Unobtainable. PHYSICAL EXAMINATION: GENERAL: Reveals an elderly white female in no acute distress. Again, she does not answer to any questions at all. HEENT: Unremarkable. NECK: Supple. CHEST: Clear anteriorly. HEART: Regular rate and rhythm. ABDOMEN: Soft, nontender. EXTREMITIES: No edema. LABORATORY DATA: Reveals normal electrolytes, BUN 41, creatinine 1.2. Total bilirubin 2.9, AST 76, ALT 34, direct bilirubin is 2.2, alkaline phosphatase 91, CONSULT REPORT [id number] JOSE GUADALUPE VIEIRA albumin 2.5. TSH is 4.4. Hematocrit is 30, white count 4000, MCV of 91, platelet count 69,000. Sed rate 110 and retic count is 2.9. She has had a bone marrow exam recently. INR is 1.1. Spinal tap was negative. Head CT reveals ventriculomegaly and chronic small vessel ischemic changes, but nothing acute. IMPRESSION: 1. Mildly elevated liver enzymes of unclear etiology, rule out underlying liver disease. Her thrombocytopenia suggest there might be some chronic liver disease present. 2. Oropharyngeal dysphagia of unclear etiology, but suspect central causes. 3. Chronic anemia. This does not appear to be GI related. Dr. Nielsen is on her case. She apparently has had a bone marrow exam. In the chart, it says she has non-Hodgkin lymphoma. I do not know how accurate that is and what kind if that is playing a role here or not. I have to also consider hemolysis. RECOMMENDATION: 1. Check barone liver lab. 2. Ultrasound of the liver. 3. Liver and spleen scan. 4. Hydrate. 5. Consider PEG tube placement in the near future. 6. Check haptoglobin level. 7. Recheck thyroid studies. TRANSINT:[id number] Voice Confirmation ID: [id number] DOCUMENT ID: [id number] LOUIE IZQUIERDO MD at 1128 CC: HARISH RIOS MD [id number] DICTATION DATE: 06/13/161921 OPERATIONAL INTELLIGENCE OFFICER: 06/14/16 0141 [facility] IN [facility] [address] [place] [address]
--- NOTE | 2016-06-14 11:50 | NUR ---
GINA FROM SPEECH THERAPY RECOMMENED NG TUBE FOR PT. TALKED WITH JAVAD BONILLA ABOUT IT. DR IZQUIERDO RECOMMENDING PEG PLACEMENT. WILL WAIT AND SEE WHICH ONE
[2016-06-14 13:34] VITALS: Ht 167.6 cm; Wt 87.0 kg
--- NOTE | 2016-06-14 14:36 | NUR ---
DR GRIDER ORDERED BLEEDING SCAN. CALLED [facility] SPOKE WITH SHAQUILLE SINCE PT IS CURRENTLY DOWN THERE AND ASKED IF THEY COULD DO EVERYTHING DOWN THERE, SHE SAID SHE WILL HAVE TO WAIT UNTIL TOMORROW BEFORE THEY COULD DO IT. JAVAD DIXON.
--- NOTE | 2016-06-14 15:05 | NUR ---
PT SITTING UP IN BED WITH DAUGHTER AT AT BEDSIDE DENIES NEEDS WILL CONT TO MONITOR
--- NOTE | 2016-06-14 17:32 | NUR ---
OT NOTE: PT COMPLETED BUE AAROM FOR INCREASED AX TOLERANCE. PT COMPLETED ORAL HYGIENE TASK WITH KOLE Ordoñez THANK YOU, JOSEPH DOLL/Mert
--- NOTE | 2016-06-14 18:34 | NUR ---
PT SITTING UP IN BED FAMILY AT BEDSIDE. PT CLEANED UP BY PERFORMANCE TEST ARCHITECT FOR INC URINE. PT IS NOW CLEAN AND DRY
[2016-06-14 20:00] VITALS: BP 154/67
--- NOTE | 2016-06-14 20:10 | NUR ---
AWAKE IN BED, RESPERATIONS EVEN ON O2 AT 2 LITER. IV TO RIGHT FOREARM WITH D5 1/2 NS INFUSING AT 100, SITE CLEAN AND DRY. PT DENIES PAIN OR NEEDS. DAUGHTER AT BED SIDE, BED LOW, CLIN REACH.
[2016-06-15 00:49] VITALS: BP 143/81
--- NOTE | 2016-06-15 02:30 | NUR ---
PREPPER AT BED SIDE, BATH AND LINEN CHANGE COMPELTE.
--- NOTE | 2016-06-15 03:33 | NUR ---
RESTING WITH EYES CLOSED, RESPERATIONS EVEN, NO S/S DISTRESS NOTED.
--- NOTE | 2016-06-15 05:28 | NUR ---
CALL LIGHT IN REACH. WILL CONTINUE WITH PLAN OF CARE.
[2016-06-15 05:34] LABS: BASOPHILS 0.2 % (0.0-2.0); EOSINOPHILS 0.5 % (0-7); HEMOGLOBIN 9.4 g/dL (12-16); IMMATURE GRANULOCYTES 0.7 % (0-5); LYMPHOCYTES 13.4 % (15-50); MCH 33.3 pg (26.0-34.0); MCHC 34.8 g/dL (31.0-37.0); MCV 95.7 fL (80.0-100.0); MONOCYTES 11.2 % (2-11); PLATELET COUNT 65 10x3/uL (130-400); RBC 2.82 10x6/uL (4.00-5.40); RDW 21.1 % (11.5-14.5)
[2016-06-15 05:37] LABS: WBC 4.2 10x3/uL (4.8-10.8)
[2016-06-15 05:42] VITALS: BP 176/68
[2016-06-15 05:47] LABS: ALBUMIN 2.3 g/dL (3.4-5.0); ANION GAP 13.1 mmol/L (8-16); BILIRUBIN - TOTAL 4.53 mg/dL (0.2-1.3); CALCIUM 8.1 mg/dL (8.5-10.1); CARBON DIOXIDE 26.5 mmol/L (21.0-32.0); MAGNESIUM - SERUM 1.5 mg/dL (1.8-2.4); PHOSPHOROUS 2.9 mg/dL (2.5-4.9); POTASSIUM - SERUM 3.6 mmol/L (3.5-5.1); PROTEIN - SERUM 5.9 g/dL (6.4-8.2)
--- NOTE | 2016-06-15 07:00 | NUR ---
RECEIVED REPORT FROM MANAGING PRINCIPAL NURSE, EHSAN FOREMAN. PT IN BED, SLEEPING. SCD'S ON BILAT, CALL LIGHT IN REACH, NAD NOTED. WILL CONTINUE TO MONITOR.
[2016-06-15 08:20] LABS: T3 - FREE 1.4 pg/mL (2.0-4.4)
[2016-06-15 08:22] VITALS: BP 165/69
--- NOTE | 2016-06-15 10:14 | NUR ---
IV TO RIGHT FOREARM DC, CATHETER INTACT. PRESSURE AND DRESSING APPLIED. COMPLETE LINEN CHANGE PROVIDED DUE TO INCONTINENCE OF URINE. VEDA WITH PT AT BEDSIDE AT THIS TIME. BED LOWERED. SIDE RAILS UP. CALL LIGHT IN REACH.
--- NOTE | 2016-06-15 10:14 | NUR ---
PT UP TO CHAIR, DENIES ANY NEEDS AT THIS TIME. CALL LIGHT IN REACH, NAD NOTED, WILL CONTINUE TO MONITOR.
[2016-06-15 11:18] LABS: HEPATITIS C ANTIBODY <0.1 (0.0-0.9)
--- NOTE | 2016-06-15 11:45 | NUR ---
SPEECH THERAPY AT BEDSIDE, DOING SWALLOW EVAL. SON AT BEDSIDE, CALL LIGHT IN REACH, NAD NOTED, WILL CONTINUE TO MONITOR.
[2016-06-15 11:46] VITALS: BP 167/75
--- NOTE | 2016-06-15 13:07 | NUR ---
OT NOTE: PT REMAINS WITH LOW RESPONSE LEVEL. PT IS ALERT, HOWEVER, TODAY, SHE HAS EXTREMELY LOW RESPONSE LEVEL. PT WAS UNABLE TO FOLLOW ANY SIMPLE COMMANDS OR ANSWER ANY QUESTIONS INCLUDING NAMING OR RECOGNIZING HER SON. A/AROM EXS; ATTEMPTED ANT POST TILT WHILE SITTING IN CHAIR..PT UNABLE TO SIT UNSUPPORTED WITHOUT MAX ASSIST
[2016-06-15 13:15] LABS: ALPHA FETOPROTEIN -(TUMOR MRK) 3.3 ng/mL (0.0-8.3); HAPTOGLOBIN <10 mg/dL (34-200)
[2016-06-15 15:22] LABS: ANA REFLEX - ANTICHROMATIN ABS 0.2 AI (0.0-0.9); ANA REFLEX - CENTROMERE B ABS <0.2 AI (0.0-0.9); ANA REFLEX - DBL STRANDED DNA 2 IU/mL (0-9); ANA REFLEX - DIRECT Positive (Negative); ANA REFLEX - JO-1 AB <0.2 AI (0.0-0.9); ANA REFLEX - RNP ANTIBODIES 1.3 AI (0.0-0.9); ANA REFLEX - SCL-70 >8.0 AI (0.0-0.9); ANA REFLEX - SJOGRENS AB SSA 0.4 AI (0.0-0.9); ANA REFLEX - SJOGRENS AB SSB <0.2 AI (0.0-0.9); ANA REFLEX - SMITH AB <0.2 AI (0.0-0.9)
[2016-06-15 16:03] VITALS: BP 179/77
--- NOTE | 2016-06-15 17:14 | NUR ---
OT NOTE: PT COMPLETED HYGIENE AND GROOMING TASK WITH KOLE Ordoñez PT COMPLETED BUE PROM TO DECREASE RISK OF SKIN BREAKDOWN. THANK YOU, JOSEPH DOLL/Mert
[2016-06-15 20:13] VITALS: BP 179/73
--- NOTE | 2016-06-16 01:09 | NUR ---
CALL LIGHT IN REACH, WILL CONTINUE WITH PLAN OF CARE.
[2016-06-16 02:00] VITALS: BP 119/71
--- NOTE | 2016-06-16 02:39 | NUR ---
RESTING WITH EYES CLOSED, RESPERATIONS EVEN, NO S/S DISTRESS NOTED.
[2016-06-16 05:32] LABS: BASOPHILS 0.3 % (0.0-2.0); EOSINOPHILS 0.5 % (0-7); HEMATOCRIT 25.2 % (36.0-48.0); HEMOGLOBIN 8.5 g/dL (12-16); LYMPHOCYTES 12.9 % (15-50); MCHC 33.7 g/dL (31.0-37.0); MCV 94.7 fL (80.0-100.0); MONOCYTES 11.9 % (2-11); NEUTROPHILS 73.4 % (40-80); PLATELET COUNT 54 10x3/uL (130-400); RBC 2.66 10x6/uL (4.00-5.40); RDW 21.9 % (11.5-14.5); WBC 3.9 10x3/uL (4.8-10.8)
[2016-06-16 05:58] LABS: INR 1.25 (0.85-1.17); PROTIME 15.5 SECONDS (11.6-15.0)
[2016-06-16 06:06] LABS: ALBUMIN 2.1 g/dL (3.4-5.0); ANION GAP 13.4 mmol/L (8-16); BILIRUBIN - TOTAL 6.12 mg/dL (0.2-1.3); CREATININE - SERUM 0.9 mg/dL (0.6-1.3); POTASSIUM - SERUM 3.4 mmol/L (3.5-5.1); PROTEIN - SERUM 5.6 g/dL (6.4-8.2)
--- NOTE | 2016-06-16 06:16 | NUR ---
JIGSAWYER AT BE SIDE, BATH AND LINEN CHANGE COMPLETE.
--- NOTE | 2016-06-16 07:00 | NUR ---
PT WAS RECEIVED AT THE BEGINNING OF THIS SHIFT AWAKE AND ORIENTED ONLY TO SELF. SHE IS CONFUSED AND DOES NOT COMMUNICATE VERBALLY. LEFT FOREARM WITH D5 1/2 NS GOING AT 100ML'S/HR. PT. WILL BE MONITORED AND ASSISTED PRN WITH ADL'S. PT. WILL BE GOING FOR A PEG PLACEMENT TODAY. VITAL SIGNS; TEMP. 97.5, PULSE 83, RESP. 16, B/P 173/83, 02SAT. 92%. STABLE CONDITION OBSERVED.
[2016-06-16 08:14] VITALS: BP 173/83
--- NOTE | 2016-06-16 11:58 | NUR ---
OT NOTE: NO CHANGES FROM PREVIOUS DAY; PT WITH EYES CLOSED BUT EASILY AROUSED; CONTINUES WITH VERY SLOW RESPONSES AND DIFFICULTY FOLLOWING VERBAL COMMANDS; INCREASED LETHARGY TODAY
[2016-06-16 12:17] LABS: MITOCHONDRIAL ANTIBODY 7.2 Units (0.0-20.0); SMOOTH MUSCLE ABS (ACTIN) 25 Units (0-19)
[2016-06-16 13:14] VITALS: BP 197/86
[2016-06-16 16:52] VITALS: BP 152/69
--- NOTE | 2016-06-16 16:59 | NUR ---
OT NOTE: PT COMPLETED BUE PROM . THANK YOU, MAXINE DOLL
--- NOTE | 2016-06-16 18:05 | NUR ---
PT WENT FOR A PEG TUBE PLACEMENT THIS AFTERNOON. NEW ORDERS RECEIVED UPON RETURN TO FLOOR. IV WAS RESITED IN HER RT. HAND. PT CONTINUES TO BE ALERT BUT CONFUSED. AT BEDSIDE.
[2016-06-16 19:00] VITALS: BP 170/82
--- NOTE | 2016-06-16 19:10 | NUR ---
PT RECEIVED LYING IN BED WITH FAMILY MEMBER AT BEDSIDE. AWAKE AND ALERT. PT NON-VERBAL AT THIS TIME. NO NON-VERBAL SIGNS OF PAIN NOTED AT THIS TIME. IV NOTED TO RIGHT HAND INFUSING D5 1/2 NS @ 50 CC/HR. PATENT. DRESSING CDI. HEART RRR. LUNG SOUNDS CLEAR BILATERALLY. BOWEL SOUNDS ACTIVE X4 QUADRENTS. ABDOMINAL BINDER NOTED TO ABDOMEN AT THIS TIME. PEDAL PULSES EQUAL BILATERALLY. PT SHOOK HEAD NO WHEN ASKED IF SHE NEEDED ANYTHING. BED IN LOWEST. PHONE AND CALL LIGHT IN REACH. SRX2.
--- NOTE | 2016-06-16 21:00 | NUR ---
PT RESTLESS AT THIS TIME WITH PAIN PT RATES 8/10. NO MEDICATION FOR PAIN ON EMAR. HAD SALESPERSON HOSIERY DOCTOR PAGED AT THIS TIME WITH REQUEST FOR MEDICATION TO TREAT PAIN. WILL CONTINUE TO MONITOR.
--- NOTE | 2016-06-16 22:14 | NUR ---
PM MEDS GIVEN PER PEG TUBE AT THIS TIME. PT TOLERATED WELL. DENIES NEEDS. BED LOW. PHONE AND CALL LIGHT IN REACH. SRX2.
--- NOTE | 2016-06-16 23:30 | NUR ---
INITIATED FLAGYL IVPB AT THIS TIME. PT RESTING QUIETLY WITH EYES CLOSED. RESPIRATIONS EVEN, NON-LABORED. NO ACUTE DISTRESS NOTED AT THIS TIME. BED LOW. PHONE AND CALL LIGHT IN REACH. SRX2.
[2016-06-17] VITALS: BP 136/85
--- NOTE | 2016-06-17 01:51 | NUR ---
REPOSITIONED PT IN BED AT THIS TIME. RESTING WITH EYES CLOSED AT THIS TIME. FAMILY AT BEDSIDE. BED LOW. PHONE AND CALL LIGHT IN REACH. SRX2.
--- NOTE | 2016-06-17 02:37 | NUR ---
INITIATED ROCEPHIN IVPB AT THIS TIME. FAMILY REMAINS AT BEDSIDE. PT RESTING QUIETLY WITH EYES CLOSED. BED LOW. PHONE AND CALL LIGHT IN REACH. SRX2.
--- NOTE | 2016-06-17 04:10 | NUR ---
PT RESTING QUIETLY AT THIS TIME WITH EYES CLOSED. RESPIRATIONS EVEN, NON-LABORED. NO ACUTE DISTRESS NOTED AT THIS TIME. FAMILY AT BEDSIDE. BED LOW. PHONE AND CALL LIGHT IN REACH. SRX2.
[2016-06-17 04:26] VITALS: BP 155/75
--- NOTE | 2016-06-17 05:52 | NUR ---
ADMINISTERED AM MEDS AT THIS TIME. FAMILY AT BEDSIDE. PT RESTING QUIETLY. BED LOW. PHONE AND CALL LIGHT IN REACH. SRX2.
[2016-06-17 06:15] LABS: BASOPHILS 0.2 % (0-2); EOSINOPHILS 0 % (0-7); HEMATOCRIT 21.7 % (36.0-48.0); IMMATURE GRANULOCYTES 1.1 % (0-5); LYMPHOCYTES 11.2 % (15-50); MCH 31.8 pg (26.0-34.0); MCHC 34.1 g/dL (31.0-37.0); MCV 93.1 fL (80.0-100.0); MONOCYTES 10.2 % (2-11); NEUTROPHILS 77.3 % (40-80); RBC 2.33 10x6/uL (4.00-5.40); WBC 4.6 10x3/uL (4.8-10.8)
[2016-06-17 06:30] LABS: HEMOGLOBIN 7.4 g/dL (12-16)
[2016-06-17 06:31] LABS: PLATELET COUNT 49 10x3/uL (130-400)
[2016-06-17 06:32] LABS: ANION GAP 12.2 mmol/L (8-16); BILIRUBIN - TOTAL 7.47 mg/dL (0.2-1.3); CALCIUM 7.9 mg/dL (8.5-10.1); CARBON DIOXIDE 25.1 mmol/L (21.0-32.0); CREATININE - SERUM 1.1 mg/dL (0.6-1.3); POTASSIUM - SERUM 3.3 mmol/L (3.5-5.1); PROTEIN - SERUM 5.5 g/dL (6.4-8.2)
--- NOTE | 2016-06-17 07:00 | NUR ---
RECEIVED REPORT. ASSUMED CARE OF PATIENT. CALL LIGHT WIHTIN REACH. RETING WITH EYES CLOSED. FEMALE VISITOR AT BEDSIDE. RESP EVEN AND UNLABORED. NO DISTRESS.
--- NOTE | 2016-06-17 07:05 | NUR ---
SPOKE WITH AND RECEIVED ORDERS FOR 2 UNITS PRBCS DUE TO LOW H&H.
[2016-06-17 07:59] VITALS: BP 148/69
--- NOTE | 2016-06-17 09:12 | NUR ---
CALLED [facility] AND SPOKE WITH [facility] WHOM CONFIRMED THAT THERE IS A SLIP WAITING TO BE PICKED UP BY THE TIP BANDER THIS MORNING FOR GT FEEDING RECOMENDATIONS FOR TUBE FORMULA. PATIENT NOT RECEIVING ANY FORMULA AT THIS TIME.
--- NOTE | 2016-06-17 10:59 | NUR ---
1ST U NIT PRBC'S ADMINISTERING AT THIS TIME. TOLERATING WELL. FAMILY AT BEDSIDE.
--- NOTE | 2016-06-17 11:47 | NUR ---
REQUESTED PROTONIX PACKET FROM PHARMACY AT THIS TIME IT HAS NOT BEEN BROUGHT TO UNIT. MADDIE STATED IT WILL BE BROUGHT UP.
[2016-06-17 12:40] VITALS: BP 134/61
--- NOTE | 2016-06-17 12:43 | NUR ---
MEDICATED FOR PAIN AT THIS TIME. FACIAL GRIMACING. FAMILY AT BEDSIDE. CALL LIGHT WITHIN REACH. CONTINUES WITH BLOOD TRANSFUSION AT THIS TIME.
--- NOTE | 2016-06-17 15:20 | NUR ---
Nutritio Consult: Thank you for the consult. Will put order in to start TF of Jevity 1.2 @ 25 ml/hr when okay with General Surgery. Advance 10 ml every 6-8 hours as tolerated to goal rate of 55 ml/hr. Water flushes of 50 ml every [address] will continue to monitor pt progress.
[2016-06-17 15:40] VITALS: BP 118/58
--- NOTE | 2016-06-17 16:00 | NUR ---
TURNED, REPOSITIONED. INCONTINENT CARE PROVIDED. CALL LIGHT WITHIN REACH. NO DISTRESS. FAMILY REMAINS AT BEDSIDE.
--- NOTE | 2016-06-17 17:00 | NUR ---
2ND UNIT PRBCS COMPLETE. TOLERATED INFUSION WELL. NO DISTRESS. CALL LIGHT WITHIN REACH. FAMILY REMAINS AT BEDSIDE.
--- NOTE | 2016-06-17 18:26 | NUR ---
SPOKE TO LAZARO IN THE DIETARY AND WAITING FOR [facility] 1.2 TO BE BROUGHT UP TO START PATIENTS TUBE FEEDING.
--- NOTE | 2016-06-17 19:25 | NUR ---
ALERT/AWAKE STATED "NO" TO INQUIRY ABOUT ANY NEEDS OR DISCOMFORTS. 02 AT 2L/NC. RR 18 EVEN U/L. IV IN R HAND WITH IVF INFUSING. PEG TUBE WITH JEVITY 1.2 INGUSING AT 25ML/HR. SCD'S ARE ON. HER IS PRESENT IN ROOM. NO QUESTIONS OR CONCERNS VOICED.
[2016-06-17 20:00] VITALS: BP 131/74
[2016-06-18] VITALS: BP 180/81
--- NOTE | 2016-06-18 00:34 | NUR ---
WASHING TUB OPERATOR PRESENT IN ROOM TAKING VS. NO VERBAL RESPONSE TO INQUIRY ABOUT ANY NEEDS OR DISCOMFORTS. ASSISTED WASHING TUB OPERATOR WITH REPOSITIONING TO LEFT SIDE WITH PILLOW TO HER BACK. HER IS PRESENT IN ROOM. NO NEEDS OR CONCERNS VOICED.
--- NOTE | 2016-06-18 03:23 | NUR ---
CHECKED PEG RESIDUAL AT 0 ML. INCREASED FEED TO 35ML/HR. FLUSHED PEG WITH 20 ML TAP WATER PER ORDER.
[2016-06-18 04:00] VITALS: BP 170/72
[2016-06-18 05:14] LABS: BASOPHILS 0.2 % (0-2); HEMATOCRIT 28.8 % (36.0-48.0); HEMOGLOBIN 10.2 g/dL (12-16); IMMATURE GRANULOCYTES 2.4 % (0-5); LYMPHOCYTES 9.9 % (15-50); MCH 32.3 pg (26.0-34.0); MCHC 35.4 g/dL (31.0-37.0); MCV 91.1 fL (80.0-100.0); MONOCYTES 9.7 % (2-11); NEUTROPHILS 76.8 % (40-80); PLATELET COUNT 51 10x3/uL (130-400); RBC 3.16 10x6/uL (4.00-5.40); RDW 20.9 % (11.5-14.5)
[2016-06-18 05:38] LABS: ALBUMIN 1.9 g/dL (3.4-5.0); BILIRUBIN - DIRECT 3.99 mg/dL (0.00-0.30); BILIRUBIN - TOTAL 5.2 mg/dL (0.2-1.3); CALCIUM 8.3 mg/dL (8.5-10.1); CARBON DIOXIDE 23.3 mmol/L (21.0-32.0); CREATININE - SERUM 1.1 mg/dL (0.6-1.3); PROTEIN - SERUM 5.6 g/dL (6.4-8.2)
[2016-06-18 05:43] LABS: ANION GAP 13.5 mmol/L (8-16); POTASSIUM - SERUM 3.8 mmol/L (3.5-5.1)
--- NOTE | 2016-06-18 07:00 | NUR ---
RECEIVED REPORT. ASSUMED CARE OF PATIENT. CALL LIGHT WITHIN REACH. MORE ALERT TODAY AND ABLE TO ANSWER SIMPLE QUESTIONS. GT FEEDING INFUSING AT 35ML/HR. TOLERATING FEEDING WELL. RESP EVEN AND UNLABORED. NO DISTRESS.
[2016-06-18 08:10] VITALS: BP 164/72
--- NOTE | 2016-06-18 09:08 | OP ---
PATIENT NAME: JOSE GUADALUPE VIEIRA MEDICAL RECORD: [id number] :37 LOCATION:D.M2 D.2112 ADMISSION DATE:06/13/16 SURGEON: KOREY TA MD DATE OF OPERATION: 06/16/2016 SURGEON: Korey Ta MD PREOPERATIVE DIAGNOSES: 1. Dysphagia. 2. Hyperbilirubinemia. 3. Failure to thrive. POSTOPERATIVE DIAGNOSES: 1. Dysphagia. 2. Hyperbilirubinemia. 3. Failure to thrive. PROCEDURES PERFORMED: 1. Esophagogastroduodenoscopy 2. Percutaneous endoscopic gastrostomy tube placement. ANESTHESIA: Total intravenous anesthesia. COMPLICATIONS: None. SPECIMENS: None. Case was contaminated. ESTIMATED BLOOD LOSS: Minimal. OPERATIVE COURSE: After consent was obtained, the patient was taken to the endoscopy room. Upon arrival, a timeout was taken to confirm the correct patient and procedure, total intravenous anesthesia was given and a bite block was placed. The endoscope was passed through the oropharynx. The epiglottis was identified. The scope was passed posterior to the epiglottis under direct endoscopic vision into the esophagus. The scope was advanced into the stomach. The stomach was insufflated. The light was transilluminated the left lower quadrant. The site was prepped and marked. Local anesthetic was administered. The needle angiocatheter were placed through the external skin and into the lumen of the stomach under direct endoscopic vision. The guidewire was placed. The wire was then grasped with a snare grasper and the wire was removed with the scope through the oropharynx. The gastrostomy tube was secured to the wire in the standard pull technique, was delivered through the oropharynx and pulled through the abdominal wall, secured it to the abdominal wall at 3.5 cm. At the end of the case, all needle and instrument counts were correct. No complications occurred. The patient tolerated the procedure well and was transferred to the recovery room in satisfactory condition. TRANSINT:[id number] Voice Confirmation ID: [id number] DOCUMENT ID: [id number] OPERATIVE REPORT [id number] SACHIN VIEIRALLA KOREY NICOLAS MD at 0908 CC: [id number] DICTATION DATE: 06/16/16 1441 CUSTOMER CONSULTANT: 06/16/162006 ADM IN [facility] [address] [place] [address]
--- NOTE | 2016-06-18 10:24 | NUR ---
TUBE FEEDING INCREASED TO 45ML/HR AT THIS TIME. PATIENT TOLERATING FEEDING WELL. PATIENT RESIDUAL CHECKED, 5ML RESIDUAL AT 35ML/HR. CHECKED VIA ASPIRATION AND ASCULTATION.
[2016-06-18 11:49] VITALS: BP 131/86
--- NOTE | 2016-06-18 11:59 | NUR ---
ORAL CARE PROVIDED. TEETH AND ROOF AND MOUTH CLEANSED. PATIENT REFUSED TO STICK OUT TONGUE. DRIED,DARK SUBSTANCE ON TONGUE. INFORMED RODY BAH THAT THIS NURSE ALSO PROVIDED ORAL CARE TO PATIENT YESTERDAY MD STATES IT HAS BEEN OVER 24 HOURS SINCE ORAL CARE PREFORMED. PATIENT UNCOOPERTIVE TO STICK TONGUE OUT FOR PROPER ORAL CARE.
--- NOTE | 2016-06-18 15:00 | NUR ---
INCONTINENT CARE PROVIDED. PATIENT TURNED AND REPOSITIONED. CALL LIGHT WITHIN REACH. PATIENT DENIES PAIN OR DISCOMFORT. TOLERATING FEEDING WELL VIA GTUBE.
[2016-06-18 16:14] VITALS: BP 156/72
--- NOTE | 2016-06-18 17:40 | NUR ---
INCONTINENT CARE PROVIDED. TURNED AND REPOSITIONED. NO DISTRESS. CALL LIGHT WITHIN REACH.
--- NOTE | 2016-06-18 17:54 | NUR ---
MEDICATED FOR PAIN AT THIS TIME. NO DISTRESS. FEEDING INCREASED TO 55ML/HR. PATIENT HAD 5CC RESIDUAL. TOLERATING FEEDING WELL. WE HAVE NOW MET OUR GOAL OF ML/HR WITH TUBE FEEDING.
--- NOTE | 2016-06-18 19:41 | NUR ---
RESTING, EASILY AROUSED, DENIES NEEDS, BED LOWEST POSITION, CALL LIGHTIN REACH, WILL CONTINUE TO MONITOR
[2016-06-18 20:00] VITALS: BP 157/76
--- NOTE | 2016-06-18 23:50 | NUR ---
TURNED TUBE FEEDING OFF, FOR POSSIBLE LAP YEIMY IN THE AM, FLUSHED 50CC
[2016-06-19] VITALS: BP 188/93
--- NOTE | 2016-06-19 00:27 | NUR ---
APPLICATION OPERATIONS ENGINEER AT BEDSIDE FOR VS. NEEDS ADDRESSED. HYDRALAZINE GIVEN IV FOR ELEVATED BP. CALL LIGHT IN REACH. CONT TO MONITOR.
[2016-06-19 05:49] VITALS: BP 148/81
[2016-06-19 06:04] LABS: BASOPHILS 0.5 % (0-2); EOSINOPHILS 0.2 % (0-7); HEMATOCRIT 29.1 % (36.0-48.0); HEMOGLOBIN 10.1 g/dL (12-16); IMMATURE GRANULOCYTES 2.8 % (0-5); LYMPHOCYTES 11.7 % (15-50); MCH 31.3 pg (26.0-34.0); MCHC 34.7 g/dL (31.0-37.0); MCV 90.1 fL (80.0-100.0); NEUTROPHILS 74.8 % (40-80); RBC 3.23 10x6/uL (4.00-5.40); RDW 22.1 % (11.5-14.5); WBC 5.8 10x3/uL (4.8-10.8)
--- NOTE | 2016-06-19 06:14 | NUR ---
RESTING, DENIES NEEDS
[2016-06-19 06:28] LABS: PLATELET COUNT 50 10x3/uL (130-400)
[2016-06-19 06:32] LABS: ALBUMIN 1.9 g/dL (3.4-5.0); ANION GAP 14.1 mmol/L (8-16); BILIRUBIN - TOTAL 2.85 mg/dL (0.2-1.3); CALCIUM 7.9 mg/dL (8.5-10.1); CARBON DIOXIDE 21.4 mmol/L (21.0-32.0); CREATININE - SERUM 1.2 mg/dL (0.6-1.3); POTASSIUM - SERUM 3.5 mmol/L (3.5-5.1); PROTEIN - SERUM 5.5 g/dL (6.4-8.2)
--- NOTE | 2016-06-19 06:55 | NUR ---
RECEIVED REPORT FROM INSPECTOR EXHAUST EMISSIONS NURSE, MARISSA PACE. PT IN BED, SLEEPING AT THIS TIME. CALL LIGHT IN REACH, NAD NOTED, WILL CONTINUE TO MONITOR.
[2016-06-19 08:00] VITALS: BP 132/78
--- NOTE | 2016-06-19 08:17 | NUR ---
ADMINISTERED MORNING MEDICATIONS, USING PEG, PT TOLERATED PROCEDURE WELL, ALSO SUCTIONED PT, AND STARTED IVPB OF FLAGYL. PT IN BED, ONLY SHAKES HEAD YES AND NO. NON VERBAL AT THIS TIME. PT DENIES ANY NEEDS AT THIS TIME. CALL LIGHT IN REACH, NAD NOTED, WILL CONTINUE TO MONITOR.
[2016-06-19 12:00] VITALS: BP 152/85
--- NOTE | 2016-06-19 13:25 | NUR ---
OT NOTE: PT REMAINS LIMITED ON VERBAL RESPONSES. USUALLY JUST NODS HER HEAD. HER RESPONSE TIME REMAINS VERY DELAYED. DIFFUCULTY FOLLOWING COMMANDS AND LOOKS AT YOU WITH A BLANK LOOK. ATTEMPTED ROM EXS WITH TACTILE ASSIST; BED MOB WITH MAX ASSIST; CONT TO BE EXTREMELY WEAK
--- NOTE | 2016-06-19 14:22 | NUR ---
PT HAD NO BEEN RECEIVING HER FEEDING, SINCE LAST NIGHT. DIRECTOR CORPORATE COMMUNICATIONS NURSE STATED THAT SHE HAD READ IN A NOTE THAT PT WAS GOING TO HAVE A LAP YEIMY TODAY. NO ORDERS FOUND ON CHART, ASKED THE PT'S DAUGTHER IF THE HAD SAID ANYTHING ABOUT PT HAVING LAP YEIMY TODAY. JULIATHER STATED NO THAT THE ONLY THING DR. LOPEZ HAD TOLD HER WAS THAT SHE NEEDED TO HAVE A LAP YEIMY BUT DID NOT TELL HER WHEN. RESTARTED PT'S FEEDINGS SINCE NO PLANS FOR LAP YEIMY FOR TODAY. PT IN BED, DENIES ANY NEEDS AT THIS TIME. CALL LIGHT IN REACH, NAD NOTED, WILL CONTINUE TO MONITOR.
--- NOTE | 2016-06-19 15:44 | NUR ---
SUCTIONED PT AND PROVIDED ORAL CARE. PT HAD A LOT OF WHITE YELLOWISH COLOR MUCUS. PT RESPOSITED IN BED WITH HEEL SCORER'S HELP. CALL LIGHT IN REACH, NAD NOTED, WILL CONTINUE TO MONITOR.
[2016-06-19 16:00] VITALS: BP 145/76
--- NOTE | 2016-06-19 17:39 | NUR ---
OT NOTE: PT COMPLETED BUE AAROM TO DECREASE RISK OF SKIN BREAKDOWN AND CONTRACTURE. PT COMPLETED BED MOB WITH MOD/MAX A. PT COMPLETED GROOMING TASK WITH MAX A. THANK YOU, JOSEPH DOLL/Mert
[2016-06-19 19:00] VITALS: BP 156/82
--- NOTE | 2016-06-19 21:30 | NUR ---
EXHIBIT DESIGNER'S PRESENT IN ROOM GIVING BATH.
--- NOTE | 2016-06-19 22:15 | NUR ---
ADMIN SCHED MED THROUGH PEG TUBE. FLUSHED WITH 50 CC TAP WATER. NODDED HEAD "NO" TO INQUIRY ABOUT PAIN. HER DAUGHTER IS PRESENT IN ROOM. NO QUESTIONS OR CONCERNS VOICED.
--- NOTE | 2016-06-19 23:40 | NUR ---
ADMIN RESTORIL PER PEG TUBE FOR INABILITY TO GO TO SLEEP. DAUGHTER PRESENT IN ROOM FOR THE NIGHT.
[2016-06-20] VITALS: BP 155/83
--- NOTE | 2016-06-20 02:55 | NUR ---
RESTING ON LEFT SIDE WITH EYES CLOSED. RR 16 EVEN U/L. 02 ON AT 2L/NC. NO S/S OF PAIN OR DISCOMFORT. SCD'S ARE ON.
[2016-06-20 04:00] VITALS: BP 132/71
--- NOTE | 2016-06-20 06:50 | NUR ---
RECEIVED REPORT FROM BRONZE PLATER NURSE, JHONY FOREMAN. PT IN BED, ASKED PT IF SHE NEEDED ANYTHING PT VERBALIZED "NO" CALL LIGHT IN REACH, JEVITY 1.5 INFUSING AT 55CC/HR. PT TOLERATING FEEDINGS WELL. NO FAMILY PRESENT AT THIS TIME, NAD NOTED, WILL CONTINUE TO MONITOR.
[2016-06-20 07:57] VITALS: BP 107/88
--- NOTE | 2016-06-20 09:20 | NUR ---
ADMINISTERED MORNING MEDICATIONS, THRU PEG TUBE, PT TOLERATED PROCEDURE WELL. PT REPOSITIONED IN BED, FAMILY AT BEDSIDE, CALL LIGHT IN REACH, NAD NOTED, WILL CONTINUE TO MONITOR.
[2016-06-20 12:14] VITALS: BP 143/70
--- NOTE | 2016-06-20 13:36 | NUR ---
Patient Name: JOSE GUADALUPE VIEIRA Admission Status: Elective Accout number: [id number] Admission Date: 06-13-2016 : 1935 Admission Diagnosis:METABOLIC ENCEPHALOPATHY Attending: ULISES Current LOS: 7 Anticipated DC Date: TO BE DETERMINED Planned Disposition: Inpatient Rehab Primary Insurance: MEDICARE A & B PLANNED EXTERNAL PROVIDER: [facility] Discharge Planning Comments: * Is the patient Alert and Oriented? Yes 0 * How many steps to enter\exit or inside your home? NONE 0 * PCP DR. BAZZI 0 * Pharmacy [facility] 0 * Preadmission Environment Acute Inpatient Rehab 0 * Facility Name [facility] 0 * ADLs Partial Dependent 0 * Partial ADLs (Assistance needed) Ambulation Bathing Medication Management Transfers 0 * Equipment Other 0 * Other Equipment ALL EQUIPMENT PROVIDED BY INPATIENT REHAB 0 * List name and contact numbers for known caregivers / representatives who currently or will assist patient after discharge: JARRETT VIEIRA, SPOUSE, BG CUBA, DAUGHTER, 0 * Community resources currently utilized None 0 * Please name any agencies selected above. NONE 0 * Additional services required to return to the preadmission environment? Yes * Can the patient safely return to the preadmission environment? Yes 0 * Has this patient been hospitalized within the prior 30 days at any hospital? Yes 0 CM MET WITH PT AND DAUGHTER IN ROOM TO DISCUSS DISCHARGE PLANNING AND NEEDS. PT FELL ASLEEP WHILE SPEAKING TO CM, PT'S DAUGHTER, MASOUD, REPORTED PT LIVING AT HOME INDEPENDENTLY WITH SPOUSE PRIOR TO HOSPITALIZATION ON MED SURG AND ADMISSION TO INPATIENT REHAB. PT WAS JUST TOO SICK TO DO THE REHAB AND WAS READMITTED TO THE HOSPITAL. CM DISCUSSED AVAILABILITY OF HOME HEALTH, REHAB SERVICES AND MEDICAL EQUIPMENT. MASOUD IS UNSURE OF DISCHARGE NEEDS AT THIS TIME, REPORTING PT TO BE VERY SICK; SHE IS UNSURE IF PT WILL BE ABLE TO RETURN TO INPATIENT REHAB OR WILL NEED [facility]. CM PROVIDED CM CONTACT INFORMATION FOR FAMILY USE. FAMILY UNSURE OF PT'S DISCHARGE NEEDS AT THIS TIME, CM ANTICIPATING NEED OF INPATIENT OR [facility] REHAB SERVICES. CM TO FOLLOW AND ASSIST NEEDED. De Icer Element Winder: Robert Larios
--- NOTE | 2016-06-20 13:47 | NUR ---
OT NOTE: PT SLIGHTLY MORE VERBAL TODAY. SHE WAS ABLE TO ANSWER NO TO SEVERAL QUESTIONS, WHERE PREVIOUSLY SHE DID NOT ANSWER AT ALL. CONT WITH DIFFICULTY ANSWERING QUESTIONS AND EXHIBITS VERY SLOW TO NO RESPONSE. A/A ROM EXS WHILE IN BED; REPORTS NO PAIN. CONT EXS AND ACT TO IMPROVE PTS COGNITION AND FUNCTIONAL ADL INDEP
[2016-06-20 15:54] VITALS: BP 135/63
--- NOTE | 2016-06-20 16:47 | NUR ---
OT NOTE: PT COMPLETED BUE AAROM EXS FOR INCREASED STRENGTH. PT COMPLETED ORAL HYGIENE WITH [place]. PT COMPLETED LUE POSITIONING TO DECREASE EDEMA. THANK YOU, JOSEPH DOLL/Mert
--- NOTE | 2016-06-20 19:40 | NUR ---
PT. IN BED LYING ON HER LEFT SIDE WITH HOB UP FOR COMFORT. GUSTAVO. HEEL PROTECTORS ON AND LE'S ELEVATED UP ON PILLOWS. TUBEFEEDING INFUSING VIA PUMP WITHOUT ANY ALARMS WELL PT'S IV OF D51/2NS AT 100CC/HR. ASSESSMENT COMPLETED. CALL LIGHT WITHIN REACH AND SPOUSE AT HER BEDSIDE.
[2016-06-20 20:00] VITALS: BP 107/64
--- NOTE | 2016-06-20 23:05 | NUR ---
PT. IN BED WITH HOB UP FOR COMFORT AND EYES OPEN UPON TURNING ROOM LIGHT ON TO ASSESS IV PUMP ALARM. FIXED IV PUMP TUBING AND RE-INITIATED IV PUMP WITHOUT ANY ALARMS WITH D51/2NS AT 100/HR. SPOUSE HAS GONE HOME FOR THE EVENING.
[2016-06-21] VITALS: BP 104/62
--- NOTE | 2016-06-21 01:19 | NUR ---
PT. IN BED WITH HOB UP FOR COMFORT WITH EYES CLOSED AND RESP. EVEN. JEVITY FEEDING VIA PUMP AT 55CC/HR WITHOUT ALARMS, IV RT. HAND INFUSING AT 100CC/HR OF D51/2NS.
--- NOTE | 2016-06-21 03:19 | NUR ---
PT. IN BED WITH HOB UP FOR COMFORT. EYES CLOSED AND RESP. DEEP AND EVEN. PT. AWAKENS EASILY WHEN WORKING WITH IV'S, BUT CLOSES HER EYES SOON AFTERWARD.
[2016-06-21 04:00] VITALS: BP 106/65
[2016-06-21 06:07] LABS: ALBUMIN 1.8 g/dL (3.4-5.0); ANION GAP 13.9 mmol/L (8-16); BILIRUBIN - TOTAL 1.54 mg/dL (0.2-1.3); CALCIUM 7.2 mg/dL (8.5-10.1); CARBON DIOXIDE 19.8 mmol/L (21.0-32.0); CREATININE - SERUM 1.3 mg/dL (0.6-1.3); POTASSIUM - SERUM 3.7 mmol/L (3.5-5.1); PROTEIN - SERUM 5.1 g/dL (6.4-8.2)
[2016-06-21 06:35] LABS: BASOPHILS 0.2 % (0-2); EOSINOPHILS 0 % (0-7); HEMATOCRIT 21.5 % (36.0-48.0); IMMATURE GRANULOCYTES 4.8 % (0-5); LYMPHOCYTES 12.3 % (15-50); MCH 30.1 pg (26.0-34.0); MCHC 33.5 g/dL (31.0-37.0); MONOCYTES 13.1 % (2-11); NEUTROPHILS 69.6 % (40-80); PLATELET COUNT 60 10x3/uL (130-400); RBC 2.39 10x6/uL (4.00-5.40); RDW 23.9 % (11.5-14.5); WBC 6.2 10x3/uL (4.8-10.8)
[2016-06-21 06:36] LABS: HEMOGLOBIN 7.2 g/dL (12-16)
--- NOTE | 2016-06-21 07:22 | NUR ---
CALLED NATHALIA FARNSWORTH WITH DR. BAZZI RE: HGB 7.2 NO ANSWER TO PHONE CALL. PAGED JAVAD AND GOT A RETURN CALL AT 0712. ORDER TO CALL RE: HGB 7.[address] FINE'S OFFICE AT 0716 AND MD WILL BE PAGED. REPORT HANDED OFF TO DAY SHIFT NURSE, AHSAN KRISHNA.
[2016-06-21 08:00] VITALS: BP 151/66
--- NOTE | 2016-06-21 08:23 | NUR ---
RECEIVED REPORT FROM FARM BOSS NURSE AHSAN DAWSON. PT IS CURRENTLY LAYING IN BED ON BACK WITH EYES OPEN. PT STATES "HELLO" AFTER ME SAYING HELLO TO PT. ON O2 AT 2L VIA NC. IV SEEN TO RIGHT HAND WITH D5 1/2 NS RUNNING AT 100CC/HR. PEG TUBE SEEN WITH TUBE FEEDINGS, JEVITY 1.2 AT 55CC/HR WITH WATER FLUSHES 50CC Q4H THAT PER REPORT BAG WAS CHANGED THIS AM BY FARM BOSS NURSE AHSAN DAWSON. SCDS AT BEDSIDE. HEEL PROTECTORS ON. PTS HBG IS 7.2 THIS AM, FARM BOSS NURSE CALLED DR. FINE AND RECEIVED STANDING ORDERS. NO NEED AT CURRENT TIME. WILL CONTINUE TO MONITOR AND CONTINUE WITH PLAN OF CARE.
[2016-06-21 08:37] LABS: HEMATOCRIT 21.5 % (36.0-48.0)
[2016-06-21 08:48] LABS: HEMOGLOBIN 7.3 g/dL (12-16)
[2016-06-21 10:18] LABS: HAPTOGLOBIN <10 mg/dL (34-200)
--- NOTE | 2016-06-21 10:35 | NUR ---
0945Tyron LEY CNA CAME TO INFORM ME THAT PTS IV HAD COME OUT. WENT TO CHECK ON PT. COVERED SITE WITH 2X2 GAUZE PADS AND SECURED WITH TAPE. CALLED ORALIA MARTIN, VASCULAR ACCESS NURSE TO SEE ABOUT RESITING PT. SHENA MARTIN STATED SHE WILL. WILL CONTINUE TO MONITOR.
--- NOTE | 2016-06-21 11:30 | NUR ---
IV ACCESS-20 GAUGE INSERTED IN LEFT AC FOR ACCESS AFTER MULTIPLE ATTEMPTS. SHENA MARTIN RN
[2016-06-21 12:00] VITALS: BP 155/65
--- NOTE | 2016-06-21 12:02 | NUR ---
1130- SHENA MARTIN VASCULAR ACCESS NURSE RESITED PT WITH 20G IV TO LEFT AC. 1202- UPON TRYING TO RESTART IV FLUIDS AFTER IV WAS RESITED, IV DID NOT FLUSH. CALLED SHENA MARTIN, VASCULAR ACCESS NURSE AND SHENA STATED TO ASK JAVAD HERRERA NP ABOUT GETTING ORDERS FOR A MIDLINE CATHETER. JAVAD HERRERA NP ON UNIT. JAVAD HERRERA NP STATES THAT IS FINE. WILL CONTINUE TO MONITOR.
--- NOTE | 2016-06-21 12:41 | NUR ---
CALLED LAB ORDERED BY DR. IZQUIERDO TO SEE WHEN PTS FIBROSPECT LAB RESULT WOULD BE IN. LAB STATED THEY STILL DON'T HAVE RESULTS YET. GAVE THIS INFORMATION TO DR. IZQUIERDO WHO IS ON UNIT. WILL CONTINUE TO MONITOR.
--- NOTE | 2016-06-21 12:42 | NUR ---
SPOKE WITH DR. IZQUIERDO WHO IS ON UNIT. INFORMED HIM OF PTS HGB LEVEL AND ASKED DR. IZQUIERDO IF HE WANTED ME TO CALL DR. FINE TO SEE ABOUT TRANSFUSING PT. DR. IZQUIERDO STATED TO WAIT ON ANOTHER LAB RESULT AND GO FROM THERE. WILL DO ORDERED AND CONTINUE TO MONITOR.
[2016-06-21 13:05] LABS: BASOPHILS 0.3 % (0-2); EOSINOPHILS 0 % (0-7); HEMATOCRIT 21.6 % (36.0-48.0); IMMATURE GRANULOCYTES 4.9 % (0-5); MCH 31.2 pg (26.0-34.0); MCHC 34.3 g/dL (31.0-37.0); MCV 91.1 fL (80.0-100.0); MONOCYTES 13.4 % (2-11); NEUTROPHILS 66.4 % (40-80); PLATELET COUNT 54 10x3/uL (130-400); RBC 2.37 10x6/uL (4.00-5.40); RDW 24.6 % (11.5-14.5); WBC 7.6 10x3/uL (4.8-10.8)
--- NOTE | 2016-06-21 13:09 | NUR ---
YARITZA RINCON, VASCULAR ACCESS NURSE IN ROOM NOW DOING MIDLINE CATHETER. WILL CONTINUE TO MONITOR.
[2016-06-21 13:17] LABS: HEMOGLOBIN 7.4 g/dL (12-16)
--- NOTE | 2016-06-21 13:20 | NUR ---
PAGED DR. FINE TO INFORM HER OF PTS HEMOGLOBIN LEVEL ORDERED BY DR. IZQUIERDO. WILL AWAIT CALLBACK AND CONTINUE TO MONITOR.
--- NOTE | 2016-06-21 13:26 | NUR ---
OT NOTE; PT WITH NO CHANGE IN MENTAL STATUS; DIFFICULTY WITH 1 STEP SIMPLE COMMANDS; TOLERATED PROM , HOWEVER, NO INITIATION FOR AROM. CONT DAILY TMT TO IMPROVE COG FUNCTIONING AND UE STRENGTH
--- NOTE | 2016-06-21 14:35 | NUR ---
Nutrition follow-up: Jevity 1.2 niurka infusing @ 55 ml/hr -> pt tolerating at this time labs reviewed Wt: 155# RDN following.
--- NOTE | 2016-06-21 15:38 | NUR ---
PT TO CT VIA BED.
--- NOTE | 2016-06-21 15:50 | NUR ---
PAGED DR. FINE REGARDING NURING MESSAGE TO GIVE PT BENADRYL AND TYLENOL PRIOR TO BLOOD TRANSFUSION. WILL AWAIT CALLBACK. RECEIVED CALLBACK FROM DR. FINE. DR. FINE STATES TO GIVE PT BENADRYL 25MG IV AND TYLENOL 650MG PO PRIOR TO FIRST UNIT OF PRBC. WILL PUT ORDERS IN AND CONTINUE TO MONITOR.
[2016-06-21 16:00] VITALS: BP 123/60
[2016-06-21 20:00] VITALS: BP 159/64
[2016-06-22] VITALS: BP 164/80
[2016-06-22 04:00] VITALS: BP 168/72
[2016-06-22 05:17] LABS: BASOPHILS 0.4 % (0-2); EOSINOPHILS 0 % (0-7); LYMPHOCYTES 14.8 % (15-50); MCH 31.4 pg (26.0-34.0); MCHC 35.2 g/dL (31.0-37.0); MCV 89.2 fL (80.0-100.0); MONOCYTES 13.2 % (2-11); NEUTROPHILS 65.6 % (40-80); RDW 18.7 % (11.5-14.5); WBC 6.9 10x3/uL (4.8-10.8)
[2016-06-22 05:23] LABS: HEMATOCRIT 31.5 % (36.0-48.0); HEMOGLOBIN 11.1 g/dL (12-16); RBC 3.53 10x6/uL (4.00-5.40)
[2016-06-22 05:24] LABS: PLATELET COUNT 48 10x3/uL (130-400)
[2016-06-22 05:28] LABS: ALBUMIN 1.9 g/dL (3.4-5.0); ANION GAP 13.8 mmol/L (8-16); BILIRUBIN - TOTAL 1.47 mg/dL (0.2-1.3); CALCIUM 7.1 mg/dL (8.5-10.1); CARBON DIOXIDE 20.4 mmol/L (21.0-32.0); CREATININE - SERUM 1.4 mg/dL (0.6-1.3); POTASSIUM - SERUM 4.2 mmol/L (3.5-5.1); PROTEIN - SERUM 5.1 g/dL (6.4-8.2)
--- NOTE | 2016-06-22 07:54 | NUR ---
AM ROUNDING- RECEIVED REPORT FROM FINISHED STOCK INSPECTOR NURSE AHSAN PEREZ. PT IS CURRENTLY LAYING IN BED ON BACK WITH EYES OPEN RESTING. PT WAS ABLE TO GRASP MY HAND WHEN I ASKED HER TO DO SO. PT DID NOT RESPOND WHEN I STATED GOOD MORNING SHE JUST LOOKED UP AT ME. ON 02 AT 2L VIA NC. NO MONITOR. IV SEEN TO LEFT UPPER ARM MIDLINE WITH D5 WITH 1/2 NS RUNNING AT 100CC/HR. PEG TUBE SEEN WITH JEVITY 1.2 RUNNING AT 55CC/HR VIA KANGAROO PUMP WITH WATER FLUSHES 50CC Q4H. SCDS ARE ON. PT HAS CRITICAL PLATELET COUNT THIS AM, 48, WILL CALL DR. FINE AND INFORM HER OF THIS. WILL CONTINUE TO MONITOR AND CONTINUE WITH PLAN OF CARE.
[2016-06-22 08:16] VITALS: BP 175/82
--- NOTE | 2016-06-22 11:49 | NUR ---
OT NOTE: SPOKE TO PT THIS AM, AND PT AUTOMATICALLY RESPONDED BACK WITH , "HI". HOWEVER, ATTEMPTED FURTHER COGNITIVE TASKS..PT WAS UNABLE TO ANSWER OR RESPOND..SHE CONT TO JUST LOOK AT ME. PERFORMED PROM EXS TO B UES.. NO CHANGE NOTED IN COGNITION OR INITIATION OF MOBILITY.
[2016-06-22 12:32] VITALS: BP 192/876
--- NOTE | 2016-06-22 13:03 | NUR ---
JAVAD HERRERA MANAGER INTERMEDIATE ON UNIT INFORMED HER OF PTS PLT COUNT. NO NEW ORDERS RECEIVED.
[2016-06-22 16:42] VITALS: BP 176/86
--- NOTE | 2016-06-22 17:07 | NUR ---
OT NOTE: PT COMPLETED ORAL CARE WITH MAX A. PT COMPLETED BUE AAROM FOR INCREASED ROM AND DECREASE RISK OF SKIN BREAKDOWN. PT COMPLETED BED MOB WITH MOD/MAX A. THANK YOU, JOSEPH DOLL/Mert
--- NOTE | 2016-06-22 17:27 | NUR ---
CALLED DR. KEARNS ORDERED TO BE CONSULTED FOR "ACUTE MENTAL STATUS CHANGES" PER DR. LOPEZ ORDERED. SPOKE WITH DR. KEARNS. INFORMED URMILA THAT PT IS HERE FOR METABOLIC ENCEPHALOPATHY. INFORMED DR. KEARNS THAT ON MY SHIFT PT HAS HAD NO VERBAL RESPONSE TODAY HOWEVER, PT DOES RELIEF SALESPERSON WRIST WHEN TOLD TO AND WILL STICK OUT TONGUE ON COMMAND. DR. KEARNS ASKED WHAT ELSE IS GOING ON WITH PT. 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 LOPEZ IS CONSULTING FOR "ACUTE MENTAL STATUS CHANGES". DR. KEARNS STATES " SO DO YOU NOT KNOW YOUR PT AT ALL". I INFORMED DR. KEARNS THAT I AM CONSULTING HIM PER ORDERS FROM DR. LOPEZ. DR. KEARNS STATES "WHAT IS YOUR NAME? I REPLIED, "ERENDIRA".
--- NOTE | 2016-06-22 18:21 | NUR ---
PT IS CURRENTLY LAYING IN BED ON BACK WITH EYES CLOSED RESTING. DAUGHTER IS AT BEDSIDE. NO NEED AT CURRENT TIME. WILL CONTINUE TO MONITOR.
--- NOTE | 2016-06-22 19:43 | NUR ---
RECEIVED REPORT, PT IS BEING CLEANED UP BY GLOVE BRUSHER, DAUGHTER AT BEDSIDE, CALL LIGHT IN REACH, WILL CONTINUE TO MONITOR
[2016-06-23] VITALS (7 sets, daily range): BP systolic 148–196; BP diastolic 73–102
--- NOTE | 2016-06-23 02:31 | NUR ---
CHANGE OUT FEEDING TUBE BAG
[2016-06-23 05:23] LABS: BASOPHILS 0.4 % (0-2); EOSINOPHILS 0 % (0-7); HEMATOCRIT 29.8 % (36.0-48.0); HEMOGLOBIN 10.4 g/dL (12-16); IMMATURE GRANULOCYTES 4.8 % (0-5); LYMPHOCYTES 18.8 % (15-50); MCH 31.1 pg (26.0-34.0); MCHC 34.9 g/dL (31.0-37.0); MCV 89.2 fL (80.0-100.0); RBC 3.34 10x6/uL (4.00-5.40); RDW 20.9 % (11.5-14.5); WBC 8.4 10x3/uL (4.8-10.8)
[2016-06-23 05:37] LABS: PLATELET COUNT 32 10x3/uL (130-400)
[2016-06-23 05:48] LABS: ALBUMIN 1.8 g/dL (3.4-5.0); ANION GAP 14.9 mmol/L (8-16); BILIRUBIN - TOTAL 1.29 mg/dL (0.2-1.3); CALCIUM 7.2 mg/dL (8.5-10.1); CARBON DIOXIDE 20.6 mmol/L (21.0-32.0); CREATININE - SERUM 1.6 mg/dL (0.6-1.3); POTASSIUM - SERUM 4.5 mmol/L (3.5-5.1)
[2016-06-23 08:05] LABS: MAGNESIUM - SERUM 1.6 mg/dL (1.8-2.4); PHOSPHOROUS 4.1 mg/dL (2.5-4.9)
--- NOTE | 2016-06-23 08:36 | NUR ---
0720-AM ROUNDING STARTED BUT DR KEARNS IN TO SEE PATIENT AND TOLD ME TO GET OUT. 0807-HELPED ERISA ATTORNEY, DEVONTE, CLEAN PATIENT OF INCONTIENT OF STOOL. VERY HARD TO ROLL, STIFF. BOTTOM IS CLEAN, NO SKIN BREAKDOWN SEEN. PATIENT KEEPS HEAD TO THE LEFT, MOANS WHEN I TRY TO MOVE IT TO THE RIGHT. ASYMMECTRICAL SMILE. RIGHT INNER UPPER ARM SEEN WITH REDNESS, BILATERAL EDEMA TO BILATERAL ARMS. LEFT MIDLINE IV WITH D 5 1/2 NS INFUSING AT 30 CC/HR. NPO STATUS. JEVITY 1.2 INFUSING AT 55 CC/HR PER KANGAROO PUMP ALONG WITH SCHEDULES WATER FLUSHES TO PEG TUBE THAT IS UNDER AN ABDOMINAL BINDER. BILATERAL HAND FRENCH COMBER ARE EQUAL, WITH MEDIUM FRENCH COMBER. BILATERAL LEGS ARE ON PILLIW, PINK HEEL PROTECTORS SEEN. 3+ EDEMA TO BILATERAL TOP OF FEET. RIGHT HEEL WITH BLACK AREA SEEN, LEFT HEEL SMALL BLACK AREA. ON O2 AT 2.5 L PER NC. NO FAMILY PRESENT AT THIS TIME.
--- NOTE | 2016-06-23 09:01 | NUR ---
EP LAB VALUES ARE BACK WITH MAG 1.6, EVERYTHING ELSE IS GOOD. WILL SUPPLEMENT.
--- NOTE | 2016-06-23 09:47 | NUR ---
WOUND CARE: ASKED BY PRIMARY RN (JARRET Avila RN) TO LOOK AT PT HEELS D/T BLACK AREAS. NOTED LEFT HEEL TO HAVE 0.3CM X 0.3CM X DRY ESCAR AND RIGHT HEEL HAS 1.5CM X 1.5CM X DRY ESCAR. THERE IS NO DRAINAGE FROM EITHER HEEL. BOTH ARE STAGED AT UNSTAGEABLE PRESSURE INJURIES. CURRENTLY PT HAS ON PINK HEEL PROTECTORS AND A PILLOW IS UNDERNEATH TO BRIDGE THEM. EDEMA IS NOTED IN BILATERAL LOWER EXTREMITIES. NOTED SOME REDNESS TO RIGHT ELBOW/UPPER ARM AREA THAT IS SLOW TO SIMA. READJUSTED ARM ON PILLOW. EDEMA IS NOTED. DISCUSSED WITH DAUGHTER ABOUT AIR OVERLAY MATTRESS. PLAN TO ORDER ONE THIS MORNING. PT IS ON A TURN Q2H SCHEDULE EVEN THOUGH SHE IS VERY STIFF AND DOES NOT LIKE TURNING/REPOSITIONING. SHE PREFERS LEFT SIDE. CURRENTLY HER BOTTOM IS PINK WITH NO BREAKDOWN, BRUISING OR NONBLANCHABLE AREAS. SHE IS INCONTINENT OF HER BOWELS. WOUND CARE WILL CONTINUE TO MONITOR.
--- NOTE | 2016-06-23 10:17 | NUR ---
0932-FAXED MRI CHECKLIST TO THEM.
--- NOTE | 2016-06-23 10:42 | NUR ---
TO MRI VIA STRETCHER.
--- NOTE | 2016-06-23 11:22 | NUR ---
1115-RETURNS FROM RADIOLOGY.
--- NOTE | 2016-06-23 12:56 | NUR ---
1ST STEP OVERLAY MATTRESS PLACED ON HER BED.
[2016-06-23 17:11] LABS: ADAMTS13 ACTIVITY 59 % (>66)
--- NOTE | 2016-06-23 20:08 | NUR ---
RECEIVED REPORT, FAMILY AT BEDSIDE, BED IS LOW, SRX3, CALL LIGHT IN REACH, WILL CONTINUE TO MONITOR
--- NOTE | 2016-06-24 02:19 | NUR ---
CHANGED FEEDING TUBE
[2016-06-24 07:33] VITALS: BP 177/77
[2016-06-24 07:59] LABS: BASOPHILS 0.7 % (0-2); EOSINOPHILS 0 % (0-7); HEMATOCRIT 27.4 % (36.0-48.0); HEMOGLOBIN 9.5 g/dL (12-16); IMMATURE GRANULOCYTES 5.9 % (0-5); MCH 31.6 pg (26.0-34.0); MCHC 34.7 g/dL (31.0-37.0); MONOCYTES 9.6 % (2-11); NEUTROPHILS 59.8 % (40-80); RBC 3.01 10x6/uL (4.00-5.40); RDW 23.7 % (11.5-14.5)
[2016-06-24 08:00] VITALS: BP 171/81
[2016-06-24 08:06] LABS: WBC 11.7 10x3/uL (4.8-10.8)
[2016-06-24 08:11] LABS: PLATELET COUNT 23 10x3/uL (130-400)
[2016-06-24 08:16] LABS: ALBUMIN 1.9 g/dL (3.4-5.0); ANION GAP 19.9 mmol/L (8-16); BILIRUBIN - TOTAL 1.8 mg/dL (0.2-1.3); CARBON DIOXIDE 16.4 mmol/L (21.0-32.0); MAGNESIUM - SERUM 1.9 mg/dL (1.8-2.4); PHOSPHOROUS 4.8 mg/dL (2.5-4.9); PROTEIN - SERUM 4.5 g/dL (6.4-8.2)
[2016-06-24 08:17] LABS: CREATININE - SERUM 2.1 mg/dL (0.6-1.3); POTASSIUM - SERUM 5.3 mmol/L (3.5-5.1)
--- NOTE | 2016-06-24 17:39 | NUR ---
PATIENT IS CURRENTLY RESTING IN HER BED, HOB UP 45 DEGREES. HER PEG TUBE IS PATENT TO JEVITY 1.2 INFUSING AT 45CC PER HOUR. IT FLUSHES EASILY AND MEDICATIONS HAVE BEEN GIVEN CRUSHED AND GIVEN IN WATER. FLUSHED AFTER EACH MEDICATION ADMINISTRATION. 1ST STEP OVERLAY IS INFLATED AND HAS BEEN ALL SHIFT. IVF ARE INFUSING TO THE LEFT AC. SHE HAS TO KEEP THIS ARM RELATIVELY STRAIGHT OR IT WILL OCCLUDE. SHE IS WITHOUT EVIDENCE OF DISTRESS. SHE IS APHASIC AND UNABLE TO ANSWER QUESTIONS VERBALLY. SHE DOES RESPOND TO GREATING BUT DOESN'T APPEAR TO COMPREHEND CONVERSATION OR EVEN SIMPLE QUESTIONS.
[2016-06-24 20:00] VITALS: BP 190/82
--- NOTE | 2016-06-24 23:53 | NUR ---
INITIAL ROUNDS COMPKETED AT 1920 HRS. 1 UNIT PLATELETS COMPLETED AT TAHT TIME. PT INCONTNETN OF URINE. INCONTINENT CARE DONE. ASSESSMETN COMPLETEDA T 2104 HRS. PT INCONTINENT OF URINE. INCONTNENT CARE DONE. IV TO L ARM MIDLINE WITH BICARB DRIPA T 100CC/HR. IV PATENT. PEG TUBE WITH ABD BINDER. JEVITY 1.2 AT 55CC/HR. PT ON FIRST STEP AIR OVERLAY MATRESS. O2 2.5LNC. LUNGS DIMINISHED IN BASES BILAT. 2+ EDEMA NOTED TO LOWER LEGS. PT ON 1ST STEP AIR OVERLAY MATTRESS. SCD'S REMOVED AND SKIN INSPECTED. NO BREAKDOWN NOTED. PM MEDS GIVEN VIA PEG TUBE AND FLUSHED WITH 30CC OF WATER AFTER ADMINISTRATION. ORAL CARE DONE AT THAT TIME. AND PT REPOSITIONED IN BED FOR COMFORT. PT CURRENTLY RESTING WITH EYES CLOSED. RESP EVEN AND REGULAR. SR UP X2, CALL LIGHT WITHIN REACH.
[2016-06-25] VITALS: BP 187/85
--- NOTE | 2016-06-25 01:07 | NUR ---
NEW TUBING FEEDING TUBNG UP WITH JEVITY 1.2 AT 55CC/HR. ORAL CARE DONE. PT REPOSITIONED INBED FOR COMFORT. WILL CONTINUE TO MONITOR.; SR UP X2, CALL LIGHT WITHIN REACH.
--- NOTE | 2016-06-25 01:24 | NUR ---
APRESOLINE 10MG SIVP GIVEN FOR BP 185/87. WILL RECHECK BP IN 1 HR. WILL CONTINUE TO MONITOR.
[2016-06-25 01:45] VITALS: BP 132/67
--- NOTE | 2016-06-25 03:39 | NUR ---
PT RESTING WITH EYES CLOSED. RESP EVEN AND REGULAR. SON AT BEDSIDE. SR UP X2, CALL LIGHT WITHIN REACH.
[2016-06-25 04:00] VITALS: BP 138/72
--- NOTE | 2016-06-25 04:36 | NUR ---
REPOSITIONED IN BED FOR COMFORT. PT CLEAN AND DRY AT THIS TIME. WILL CONTINUE TO MONITOR.
[2016-06-25 04:49] LABS: BASOPHILS 1.1 % (0-2); EOSINOPHILS 0 % (0-7); HEMATOCRIT 25.7 % (36.0-48.0); HEMOGLOBIN 8.8 g/dL (12-16); LYMPHOCYTES 22.6 % (15-50); MCH 32.8 pg (26.0-34.0); MCHC 34.2 g/dL (31.0-37.0); MONOCYTES 8.4 % (2-11); NEUTROPHILS 62.9 % (40-80); RBC 2.68 10x6/uL (4.00-5.40); RDW 27.5 % (11.5-14.5); WBC 14.2 10x3/uL (4.8-10.8)
[2016-06-25 04:54] LABS: MCV 95.9 fL (80.0-100.0)
[2016-06-25 04:55] LABS: PLATELET COUNT 41 10x3/uL (130-400)
--- NOTE | 2016-06-25 04:57 | NUR ---
PLTS THIS AM 41. 06/24/16 THEY WERE 23. TRENDING UPWARD. WILL CONTINUE TO MONITOR.
[2016-06-25 05:32] LABS: ALBUMIN 2.1 g/dL (3.4-5.0); ANION GAP 21.4 mmol/L (8-16); BILIRUBIN - TOTAL 2.4 mg/dL (0.2-1.3); CARBON DIOXIDE 18.1 mmol/L (21.0-32.0); CREATININE - SERUM 2.4 mg/dL (0.6-1.3); POTASSIUM - SERUM 5.5 mmol/L (3.5-5.1); PROTEIN - SERUM 4.8 g/dL (6.4-8.2)
--- NOTE | 2016-06-25 05:47 | NUR ---
VSS. PT DENIED ANY DISCOMFORT. PT REPOSITIONED IN BED FREQ DURING SHIDT. NEEDS MET; WILL CONTINUE TO MONITOR.
--- NOTE | 2016-06-25 06:28 | NUR ---
PT INCONTINENT OF URINE. INCONTINENT CARE DONE. PT REPOSITIONED IN BED FOR COMFORT. WILL CONTINUE TO MONITOR.
[2016-06-25 08:00] VITALS: BP 171/88
--- NOTE | 2016-06-25 10:39 | NUR ---
NOTIFY CHARMAINE, RENAL MULTI PURPOSE MACHINE OPERATOR OF GLUCOSE 457. HUMULIN R 15 UNITS ORDERED NOW. SLIDING SCALE INTERMEDIATE ORDERED EVERY MORNING AND EVERY EVENING. ALERT. APHASIC. MAKES EYE CONTACT. SON AT BEDSIDE. WHEN ASKED A QUESTION, SON NOT HELPFUL. GIVES UNCLEAR FEED BACK. CONTINUE PLAN OF CARE. BED LOCKED AND LOW. CALL LIGHT IN REACH. THREE SIDERAILS UP. SCDs ON. FIRST STEP OVERLAY MATTRESS FUNCTIONING PROPERLY.
[2016-06-25 16:00] VITALS: BP 164/95
--- NOTE | 2016-06-25 20:11 | NUR ---
INITIAL ROUNDS COMPLETED AT 1915 HRS. PT AWAKE, NOT NO WHEN ASKED IF SHE WAS IN ANY DISCOMFORT. ASSESSMETN COMPELTED AT 1950 HRS. O2 2.5LNC. IV MIDINE TO LAC WITH BICARB AT 40CC/HR. IV PATENT. JEVITY 1.2 AT 55CC/HR TO PEG TUBE. LUNGS ESSENTAILLY CTA. ESCHAR NOTED TO BIAT HEELS. HEEL PROTECTORS IN USE. SCD'S REMOVED AND SKIN INSPECTED. NO BREAKDOWN NOTED. PT ON 1ST STEP AIR OVERLAY MATTRESS. WILL CONTINUE TO MONITOR. SR UP X2, CALL LIGHT WITHIN REACH AND BED ALARM ON.
--- NOTE | 2016-06-25 20:45 | NUR ---
FSBS 436/463. STAT GLUCOSE ORDERED TO LAB PROTOCOL.
--- NOTE | 2016-06-25 22:10 | NUR ---
LAB FSBS 396. 16 UNITS REG INSULIN GIVEN SUB-Q TO UPPER R ARM. PM MEDS GIVEN VIA PEG TUBE. SBP 179. APRESOLINE 10MG SIVP GIVEN PER PARAMETERS. DRESSING TO LAC MIDLINE SOILED. NEW CENTRAL LINE DRESSING PLACED USING STERILE TECHNIQUE. PT TOLERATED ACTIVITY WELL. INCONTINENT OF URINE. INCONTINENT CARE DONE. PT REPOSITIONED IN BED FOR COMFORT. WILL CONTINUE TO MONITOR.
[2016-06-25 22:11] VITALS: BP 179/88
[2016-06-26] VITALS: BP 140/73
--- NOTE | 2016-06-26 00:41 | NUR ---
REPOSITIONED IN BED FOR COMFORT. WILL CONTINUE TO MONITOR.
--- NOTE | 2016-06-26 02:47 | NUR ---
REPOSITIONED IN BED FOR COMFORT. NEW TUBING UP WITH TUBE FEEDING JEVITY 1.2 AT 55CC/HR. WILL CONTINUE TO MONITOR.
--- NOTE | 2016-06-26 04:42 | NUR ---
PT INCONTINENT OF URINE. INCONTINENT CARE DONE. REPOSITIONED INBED FOR COMFORT. WILL CONTINUE TO MONITOR.
[2016-06-26 06:17] VITALS: BP 150/76
--- NOTE | 2016-06-26 06:27 | NUR ---
REPOSITIONED IN BED FOR COMFORT. PT HAD THICK MUCUS INMOUTH. ORAL CARE DONE. PEG TUBE CHECKED FOR RESIDUAL WITH 20CC NOTED. HOB UP 30 DEGREES. NEEDS MET; WILL CONTINUE TO MONITOR.
[2016-06-26 08:20] LABS: BASOPHILS 0.9 % (0-2); EOSINOPHILS 0.1 % (0-7); HEMATOCRIT 23.7 % (36.0-48.0); IMMATURE GRANULOCYTES 4.4 % (0-5); LYMPHOCYTES 26.4 % (15-50); MCH 31.3 pg (26.0-34.0); MCHC 33.8 g/dL (31.0-37.0); MONOCYTES 7.7 % (2-11); NEUTROPHILS 60.5 % (40-80); RBC 2.56 10x6/uL (4.00-5.40); RDW 29.3 % (11.5-14.5)
[2016-06-26 08:37] LABS: MCV 92.6 fL (80.0-100.0); PLATELET COUNT 28 10x3/uL (130-400); WBC 19.1 10x3/uL (4.8-10.8)
[2016-06-26 08:45] VITALS: BP 185/86
[2016-06-26 08:56] LABS: POTASSIUM - SERUM 5.9 mmol/L (3.5-5.1)
[2016-06-26 09:02] LABS: ANION GAP 16.8 mmol/L (8-16); CALCIUM 6.9 mg/dL (8.5-10.1); CARBON DIOXIDE 26.1 mmol/L (21.0-32.0); CREATININE - SERUM 3.4 mg/dL (0.6-1.3)
--- NOTE | 2016-06-26 11:27 | NUR ---
LT AC MIDLINE LEAKING. INFORM SHENA VASCULAR NURSE. MIDLINE INFILTRATED DUE TO DRESSING UNABLE TO ADHERE TO WHEEPING SKIN. ATTEMPT IV PLACEMENT UNSUCCESSFUL. NOTIFY CHARMAINE RENAL COTTON HEADER AND IRENE FARNSWORTH. NONVERBAL. CONTINUE PLAN OF CARE. BED BATH AND LINEN CHANGE COMPLETE. BED LOCKED AND LOW. CALL LIGHT IN REACH. THREE SIDERAILS UP.
--- NOTE | 2016-06-26 12:41 | NUR ---
MIDLINE IN LEFT UPPER ARM, LEAKING AT SITE, DRESSING REMOVED AND MIDLINE PARTIALLY REMOVED. MIDLINE REMOVED WITH CATH INTACT. 20 GAUGE INSERTED IN LEFT AC AREA FOR ACCESS. SHENA MARTIN RN
[2016-06-26 12:47] VITALS: BP 191/93
--- NOTE | 2016-06-26 14:07 | NUR ---
Patient Name: JOSE GUADALUPE VIEIRA Encounter No: [id number] : 1935 Primary Insurance: MEDICARE A & B Anticipated DC Date: Planned Disposition: Hospice Home DCP follow-up note: CM RECEIVED ORDER TO DISCUSS HOSPICE WITH FAMILY. CM MET WITH PT'S SPOUSE IN ROOM. PT WAS AWAKE FOR PORTIONS, BUT SLEEPING MOST OF THE TIME. CM DISCUSSED AVAILABILITY OF HOSPICE SERVICES, LOCATIONS THAT HOSPICE MAY BE PROVIDED AND HOSPICE PROVIDERS TO CHOOSE FROM. CM PROVIDED [facility] AND LISTING OF LOCAL AND STATEWIDE HOSPICE PROVIDERS. PT'S SPOUSE STATED THAT HE WANTS TO DISCUSS THIS WITH HIS CHILDREN BEFORE MAKING ANY FURTHER DECISIONS AND WILL LET CM KNOW WHAT HE HAS DECIDED WHEN HE MAKES THE DECISION. CM WAITING PT'S SPOUSE TO SPEAK TO HIS CHILDREN AND MAKE A DECISION REGARDING HOSPICE CARE FOR PT. HOMERO GURROLA, CASE MANAGEMENT
--- NOTE | 2016-06-26 15:07 | NUR ---
OT NOTE: UNABLE TO AROUSE PT TODAY WITH VERBAL OR TACTILE COMMANDS; PERFORMED PROM TO B UES AND PT REMAINED WITH EYES CLOSED. SIGNIFICANT AMOUNT OF UE EDEMA NOTED
--- NOTE | 2016-06-26 15:52 | NUR ---
Nutrition Follow Up: Chart reviewed. Noted family to discuss possible hospice. Per Renal pt needs to be on a renal TF formula secondary to elevated labs. Noted per chart pt is not a candidate for HD. Will order TF of Suplena (as pt is not on HD) to start @ 20 ml/hr. Advance 10 ml/hr as tolerated to goal rate of 40 ml/hr. Water flushes 15 ml/hr. Goal rate will provide 1728 kcal, 42 g protein, 700 ml free water. Additional flushes provide total of [address] will continue to monitor pt progress.
[2016-06-26 17:26] VITALS: BP 182/87
--- NOTE | 2016-06-26 19:43 | NUR ---
OPENED EYES TO TOUCH AND DID NOT VERBALLY RESPOND TO QUESTIONING ABOUT ANY NEEDS OR DISCOMFORTS. IV IN L UA WITH IVF INFUSING. FEEDING PUMP WITH NEPRO INFUSING INTO PEG TUBE AT 55ML/HR. ON 1ST STEP OVERLAY AIR MATTRESS. SCD'S AND HEEL PROTECTORS ARE ON. LEFT DOOR OPEN TO MONITOR CLOSELY.
[2016-06-26 19:45] VITALS: BP 147/60
[2016-06-27 00:29] VITALS: BP 131/64
--- NOTE | 2016-06-27 01:13 | NUR ---
RESTING WITH EYES CLOSED. RR 16 EVEN U/L. 02 AT 2L/NC. HOB AT 35 DEGREES. NO S/S OF DISTRESS OR DISCOMFORT.
--- NOTE | 2016-06-27 05:22 | NUR ---
CLEANED FOR INCONTINENCE OF URINE/BOWEL. REPOSITIONED UP IN BED. NO S/S OF DISTRESS OR DISCOMFORT.
[2016-06-27 06:10] LABS: BASOPHILS 0.6 % (0-2); EOSINOPHILS 0.2 % (0-7); IMMATURE GRANULOCYTES 3.3 % (0-5); LYMPHOCYTES 29.4 % (15-50); MCH 34.1 pg (26.0-34.0); MCHC 35.9 g/dL (31.0-37.0); MONOCYTES 5.6 % (2-11); NEUTROPHILS 60.9 % (40-80); RBC 2.08 10x6/uL (4.00-5.40); RDW 34.1 % (11.5-14.5); WBC 19.2 10x3/uL (4.8-10.8)
[2016-06-27 06:15] LABS: MCV 95.2 fL (80.0-100.0)
[2016-06-27 06:17] LABS: HEMATOCRIT 19.8 % (36.0-48.0); HEMOGLOBIN 7.1 g/dL (12-16); PLATELET COUNT 40 10x3/uL (130-400)
[2016-06-27 06:33] LABS: CARBON DIOXIDE 25.5 mmol/L (21.0-32.0); CREATININE - SERUM 3.7 mg/dL (0.6-1.3)
[2016-06-27 06:40] LABS: ANION GAP 19.4 mmol/L (8-16); POTASSIUM - SERUM 4.9 mmol/L (3.5-5.1)
[2016-06-27 06:41] LABS: CALCIUM 6.9 mg/dL (8.5-10.1)
[2016-06-27 09:12] VITALS: BP 170/78
--- NOTE | 2016-06-27 10:00 | NUR ---
ALERT. APHASIC. PHYSICAL THERAPY ASSIST TO CHAIR FOR ONE HOUR. PHYSICAL THERAPY MAX ASSIST BACK TO BED. PEG FEEDING TUBE CHANGED. NEPRO CHANGED TO SUPLENA PER ORDER. START RATE AT 25. GOAL AT 55. CONTINUE PLAN OF CARE. BED LOCKED AND LOW. CALL LIGHT IN REACH. TWO SIDERAILS UP. HEEL PROTECTORS ON.
[2016-06-27 12:11] VITALS: BP 126/72
[2016-06-27 15:18] VITALS: BP 140/70
--- NOTE | 2016-06-27 16:35 | NUR ---
SLEEPING IN BED. FAMILY AT BEDSIDE. SODIUM BICARB INFUSION STOPPED FOR PRBC TRANSFUSION PER CLAU, RENAL LEAD [employer]LE DEVELOPER. INITIATE PRBC UNIT 1 OF 2 TRANSFUSION. BP-144/75, P-106, R-16, T-98. REMAIN IN ROOM FIRST 15MINS. BENADRYL GIVEN BEFORE TRANSFUSION INITIATED PER ORDER. CONTINUE PLAN OF CARE AND SAFETY PRECAUTIONS.
--- NOTE | 2016-06-27 16:50 | NUR ---
SLEEPING IN BED. NO PHYSICAL CHANGE. INCREASE TRANSFUSION TO 100mL/HR. BP-131/68, R-16, P-107, T-97.6. FAMILY WAITING TO SPEAK WITH . CONTINUE PLAN OF CARE. BED LOCKED AND LOW. CALL LIGHT IN REACH. TWO SIDERAILS UP.
--- NOTE | 2016-06-27 19:45 | NUR ---
RESTING QUIETLY. NO S/S OF DISTRESS OR DISCOMFORT. OPENS EYES TO VERBAL AND TOUCH STIMULI. IV IN L ARM INTACT WITH BLOOD INFUSING. 02 ON AT 2.5L/NC. PEG TUBE WITH SPLENA INFUSING PER FEEDING PUMP AT 25ML/HR. ON 1ST STEP MATTRESS. SCD'S AND HEEL PROTECTORS ARE ON. PLAN OF CARE NOTED.
[2016-06-27 20:18] VITALS: BP 131/67
--- NOTE | 2016-06-27 21:50 | NUR ---
ADMIN LASIX 20 MG IV PER ORDER TO GIVE AFTER 1ST UNIT OF BLOOD FINISHED.
--- NOTE | 2016-06-27 23:00 | NUR ---
STARTED 2ND UNIT PRBC'S PER ORDER. VITAL SIGNS STABLE. FAMILY MEMBER PRESENT IN ROOM.
[2016-06-27 23:57] VITALS: BP 142/99
--- NOTE | 2016-06-28 02:30 | NUR ---
2ND UNIT BLOOD FINISHED. STARTED THE NS FLUSH. VITAL SIGNS STABLE. FAMILY MEMBERS LEFT THE ROOM.
[2016-06-28 03:52] VITALS: BP 151/74
[2016-06-28 05:41] LABS: HEMATOCRIT 31.4 % (36.0-48.0); HEMOGLOBIN 11.1 g/dL (12-16); MCH 32.7 pg (26.0-34.0); MCHC 35.4 g/dL (31.0-37.0); MCV 92.6 fL (80.0-100.0); RBC 3.39 10x6/uL (4.00-5.40); RDW 22.1 % (11.5-14.5); WBC 20.4 10x3/uL (4.8-10.8)
[2016-06-28 05:42] LABS: PLATELET COUNT 33 10x3/uL (130-400)
[2016-06-28 05:49] LABS: CARBON DIOXIDE 28.3 mmol/L (21.0-32.0)
[2016-06-28 05:53] LABS: ANION GAP 16.5 mmol/L (8-16); CREATININE - SERUM 4.8 mg/dL (0.6-1.3); POTASSIUM - SERUM 5.8 mmol/L (3.5-5.1)
[2016-06-28 05:54] LABS: CALCIUM 6.6 mg/dL (8.5-10.1)
[2016-06-28 05:58] LABS: ALBUMIN 2.2 g/dL (3.4-5.0)
[2016-06-28 07:20] LABS: LYMPHOCYTES 9 % (15-50); MONOCYTES 3 % (2-11); NEUTROPHILS 78 % (40-80); PLATELET ESTIMATE DECREASED
[2016-06-28 07:30] VITALS: BP 146/71
--- NOTE | 2016-06-28 11:38 | NUR ---
Patient Name: JOSE GUADALUPE VIEIRA Encounter No: [id number] : 1935 Primary Insurance: MEDICARE A & B Anticipated DC Date: 06-28-2016 Planned Disposition: HOSPICE MEDICAL FACILITY External Planned Provider: [facility] DCP follow-up note: CM SPOKE TO DR. FINE WHO INFORMED CM THAT SHE HAS DISCUSSED PT'S CONDITION AND PROGNOSIS WITH FAMILY, THEY HAVE DECIDED ON HOSPICE AND WILL BE HERE AROUND 1000 TODAY. CM RECEIVED REQUEST TO MEET WITH FAMILY AT ABOUT 1040. CM MET WITH PT'S FAMILY IN ROOM, DISCUSSED HOSPICE OPTIONS AND PROVIDERS. PT'S SPOUSE WOULD LIKE PT EVALUATED BY [facility]. CM OBTAINED ORDER FOR HOSPICE EVALUATION AND ADMISSION IF APPROPRIATE. CM FAXED REFERRAL TO [facility] AT [phone]. CM CALLED [facility], , SPOKE TO TYSON AND PROVIDED REFERRAL INFORMATION, DANIEL TO NOTIFY CM OF ESTIMATED TIME OF ARRIVAL FOR PT'S HOSPICE SCREENING. IMPORTANT MESSAGE FROM MEDICARE PROVIDED AND EXPLAINED. CM WAITING ARRIVAL OF [facility] NURSE FOR EVALUATION. HOMERO Lord
[2016-06-28 12:30] VITALS: BP 184/103
--- NOTE | 2016-06-28 12:42 | NUR ---
Nutrition follow-up: Suplena infusing @ 25 ml/hr Labs, chart reviewed Recommend gradually increasing Suplena to goal rate of 55 ml/hr RDN following.
[2016-06-28 16:30] VITALS: BP 181/86
--- NOTE | 2016-06-28 17:07 | NUR ---
FAMILY IS VISITING WITH HOSPICE NURSE AT THE BEDSIDE. NO NEEDS NOTED AT THIS TIMES.
== END 2016-06-28 18:49 | disposition hospice, inpatient (51) | DRG 808 ==
LOC: D.M2 13:27
PROVIDERS: Family Medicine; Family Medicine Adult Medicine; Internal Medicine; Internal Medicine Gastroenterology; Internal Medicine Hematology & Oncology; ADMIT Family Medicine
PROC: 0DH63UZ Insertion of Feeding Device into Stomach, Percutaneous Approach (ICD-10-PCS; principal; 2016-06-16 11:00)
PROC: 05HC33Z Insertion of Infusion Device into Left Basilic Vein, Percutaneous Approach (ICD-10-PCS; 2016-06-21)
PROC: B54NZZA Ultrasonography of Left Upper Extremity Veins, Guidance (ICD-10-PCS; 2016-06-21)
DX: D59.1 Other autoimmune hemolytic anemias (principal); G93.41 Metabolic encephalopathy; R53.2 Functional quadriplegia; D69.3 Immune thrombocytopenic purpura; G91.2 (Idiopathic) normal pressure hydrocephalus; N39.0 Urinary tract infection, site not specified; R74.8 Abnormal levels of other serum enzymes; R13.12 Dysphagia, oropharyngeal phase; M06.9 Rheumatoid arthritis, unspecified; G93.89 Other specified disorders of brain; I10 Essential (primary) hypertension; H40.9 Unspecified glaucoma; Z85.72 Personal history of non-Hodgkin lymphomas; R62.7 Adult failure to thrive; E80.6 Other disorders of bilirubin metabolism

== ENCOUNTER 2016-06-28 18:50 | Inpatient (IN) | payer OTHER ==
[~2016-06-28] VITALS: Ht 170.2 cm; Wt 91.0 kg
--- NOTE | 2016-06-28 19:26 | NUR ---
PT RECEIVED LYING IN BED RESTING QUIETLY AT THIS TIME. IV NOTED TO LEFT AC INFUSING NS @ 60 CC/HR. PATENT. DRESSING CDI. HEART RRR. LUNG SOUNDS CLEAR BILATERALLY. BOWEL SOUNDS HYPOACTIVE X4 QUADRENTS. ABDOMEN SOFT NON-TENDER. PT FAMILY AT BEDSIDE. NO NEEDS NOTED AT THIS TIME. BED LOW. PHONE AND CALL LIGHT IN REACH. SRX2.
--- NOTE | 2016-06-28 22:04 | NUR ---
PT RESTING QUIETLY AT THIS TIME WITH EYES CLOSED. RESPIRATIONS EVEN, NON-LABORED. NO ACUTE DISTRESS NOTED AT THIS TIME. FAMILY MEMBER AT BEDSIDE. BED LOW. PHONE AND CALL LIGHT IN REACH. SRX2.
--- NOTE | 2016-06-28 22:50 | NUR ---
REPOSITIONED PT TO LEFT SIDE AT THIS TIME AND PLACED WARM BLANKET ON PT. FAMILY MEMBER REMAINS AT BEDSIDE. DENIES NEEDS AT THIS TIME. BED LOW. PHONE AND CALL LIGHT IN REACH. SRX2.
--- NOTE | 2016-06-29 00:26 | NUR ---
PT RESTING QUIETLY AT THIS TIME WITH FAMILY AT BEDSIDE. RESPIRATIONS EVEN, NON-LABORED. NO ACUTE DISTRESS NOTED AT THIS TIME. BED LOW. PHONE AND CALL LIGHT IN REACH. SRX2.
--- NOTE | 2016-06-29 01:10 | NUR ---
PT RESTING QUIETLY AT THIS TIME WITH EYES CLOSED. RESPIRATIONS EVEN, NON-LABORED. NO ACUTE DISTRESS NOTED AT THIS TIME. BED LOW. PHONE AND CALL LIGHT IN REACH. SRX2. FAMILY MEMBER AT BEDSIDE. DENIES NEEDS.
--- NOTE | 2016-06-29 02:07 | NUR ---
PT RESTING QUIETLY AT THIS TIME WITH EYES CLOSED. RESPIRATIONS EVEN, NON-LABORED. NO ACUTE DISTRESS NOTED AT THIS TIME. FAMILY AT BEDSIDE. BED LOW. PHONE AND CALL LIGHT IN REACH. SRX2.
--- NOTE | 2016-06-29 03:45 | NUR ---
PT RESTING QUIETLY AT THIS TIME WITH FAMILY AT BEDSIDE. REPOSIITONED PT TO LEFT SIDE AT THIS TIME. NO NEEDS NOTED AT THIS TIME. RESPIRATIONS EVEN, NON-LABORED. NO ACUTE DISTRESS NOTED AT THIS TIME. BED LOW. PHONE AND CALL LIGHT IN REACH. SRX2.
--- NOTE | 2016-06-29 04:56 | NUR ---
MORPHINE IVP ADMINISTERED AT THIS TIME TO HELP EASE PT PAIN. RESTING QUIETLY WITH FAMILY MEMBER AT BEDSIDE. RESPIRATIONS EVEN, NON-LABORED. NO ACUTE DISTRESS NOTED AT THIS TIME. BED LOW. PHONE AND CALL LIGHT IN REACH. SRX2.
--- NOTE | 2016-06-29 05:28 | NUR ---
PT CONTINUES TO REST WITH FAMILY MEMBER AT BEDSIDE. RESPIRATIONS EVEN, NON-LABORED. NO ACUTE DISTRESS NOTED AT THIS TIME. BED LOW. PHONE AND CALL LIGHT IN REACH. SRX2.
--- NOTE | 2016-06-29 06:12 | NUR ---
PT RESTING QUIETLY AT THIS TIME WITH EYES CLOSED. RESPIRATIONS EVEN, NON-LABORED. NO ACUTE DISTRESS NOTED AT THIS TIME. FAMILY REMAINS AT BEDSIDE. BED LOW. PHONE AND CALL LIGHT IN REACH. SRX2.
--- NOTE | 2016-06-29 07:18 | NUR ---
PT SITTING UP IN BED RESTLESS, NONVERBAL. DAUGHTER AT BEDSIDE. GIVEN PT PAIN MEDICATION PER EMAR. WILL CONT TO MONITOR
[2016-06-29 09:18] VITALS: Ht 170.2 cm; Wt 91.0 kg
--- NOTE | 2016-06-29 09:25 | NUR ---
ELIZABETH SIERRA CALLED AND SAID PT ADMISSION WASNT COMPLETE. TOLD ME TO DOCUMENT ADMISSION ASSESSMENT, HISTORY, AND QUICK START. THEY DID NOT COMPLETE YESTERDAY OR LAST NIGHT. DONE.
--- NOTE | 2016-06-29 10:11 | NUR ---
PT SEEMS TO BE RESTING WELL, FAMILY AT BEDSIDE. PT DAUGHTER CLAIMS THAT ATIVAN SEEMS TO HELP CALM HER MOTHER DOWN AND PUT HER AT EASE.
--- NOTE | 2016-06-29 17:20 | NUR ---
PT RESTING QUIETLY AND LOOKS COMFORTABLE. FAMILY AT BEDSIDE WILL CONT TO MONITOR
--- NOTE | 2016-06-29 18:48 | NUR ---
CHANGED PT FOR INC BM AND URINE, PT DID NOT ARROUSE AT ALL. LOOKS TO BE VERY COMFORTABLE.
--- NOTE | 2016-06-29 19:15 | NUR ---
Received patient resting in bed with eyes closed, no response to verbal intervention. is at bedside and states patient opened her eyes x 2 for short periods earlier today. No signs of restlessness or distress, oxygen on @1.5L/min, PIV in left AC is SL, PEG tube insitu, bunny boots on for comfort. Patient is NPO, on Hospice status. Will continue to monitor for comfort measures.
--- NOTE | 2016-06-29 20:55 | NUR ---
Continues to rest, snoring heard, respirations somewhat shallow but does not appear to be in distress. remains at bedside.
--- NOTE | 2016-06-29 22:58 | NUR ---
Getting restless, moaning, non verbal, unable to state if she is in pain but deemed to be in distress. Given Morphine 1mg IV for behavior indicating in pain. remains at bedside.
--- NOTE | 2016-06-29 23:30 | NUR ---
Patient given partial bedbath with pericare, moderate soft formed green/dark brown stool on pad, no urine noted, incontinence care done. Attempted to clean mouth with swabs but clamped down and refused to allow staff to continue.
[2016-06-29 23:43] VITALS: BP 114/62
--- NOTE | 2016-06-29 23:45 | NUR ---
Patient is again exhibiting calm behavior, snoring, Morphine deemed effective for pain relief.
--- NOTE | 2016-06-30 00:55 | NUR ---
Continues to exhibit calm behavior, respirations unlabored, eyes closed, deemed to be sleeping peacefully. Generalized edema noted. Red patches noted on both arms. Upper and lower extremities 2+ to 3+ edema. remains at bedside.
--- NOTE | 2016-06-30 02:59 | NUR ---
Patient exhibiting restless behaviors, moaning, at bedside. Deemed to be in pain, non-verbal, patient unable to express needs. Given Morphine 1mg IV for pain relief and comfort measures. Will monitor for effectiveness.
--- NOTE | 2016-06-30 03:35 | NUR ---
PRN deemed effective, resting calmly at this time. remains at bedside.
--- NOTE | 2016-06-30 05:43 | NUR ---
Son has arrived, both son and at patient's bedside. No change in patient's condition, remains lethargic, mute, respirations unlabored but somewhat shallow. Generalized edema remains present, 2+ to 3+ in extremities with redness in patches. Skin warm to touch. Comfort measures given.
--- NOTE | 2016-06-30 07:06 | NUR ---
PT LAYING FLAT SLEEPING WITH NO S/S DISTRESS NOTED, LOOKS COMFORTABLE. AT BEDSIDE WILL CONT TO MONITOR
[2016-06-30 08:44] VITALS: BP 198/65
--- NOTE | 2016-06-30 15:19 | NUR ---
PT SITTING UP IN BED, STARTING TO GET RESTLESS , THRASHING ABOUT IN BED. FAMILY AT BEDSIDE, ATIVAN GIVEN PER EMAR. WILL CONT TO MONITOR
--- NOTE | 2016-06-30 17:31 | NUR ---
GIVEN PT A BATH AND LINEN CHANGE. PT SEEMED TO BECOME MORE ANXIOUS AND AGGITATED AFTERWARDS, GIVEN ATIVAN PER EMAR. FAMILY AT BEDSIDE, TEARFUL.
--- NOTE | 2016-06-30 19:47 | NUR ---
RESTING WITH EYES CLOSED. NO SIGNS/SYMPTOMS OF PAIN OR DISCOMFORT. 0N 02 AT 1.5L/NC. FAMILY PRESENT IN ROOM. NO QUESTIONS OR CONCERNS VOICED.
[2016-06-30 21:42] VITALS: BP 113/53
--- NOTE | 2016-06-30 21:50 | NUR ---
ADMIN ATIVAN 1 MG IV FOR SIGNS AND SYMPTOMS OF RESTLESSNESS, WRIGGLING LEGS AND ARMS AFTER BEING REPOSITIONED. FAMILY MEMBERS PRESENT IN ROOM EXPRESSING CONCERNS RE: KEEPING HER COMFORTABLE. REASSURED THEM THAT IS MY GOAL.
--- NOTE | 2016-07-01 01:22 | NUR ---
RESTING QUIETLY WITH EYES CLOSED. RR 16 EVEN U/L. NO SIGNS OR SYMPTOMS OF DISTRESS OR DISCOMFORT. FAMILY MEMBER SITTING IN RECLINER. NO NEEDS OR CONCERNS VOICED.
--- NOTE | 2016-07-01 07:00 | NUR ---
RECIEVED REPORT. ASSUMED CARE OF PATIENT. PATIENT ON HOSPICE, COMFORT MEASURES. FAMILY AT BEDSIDE. PATIENT WITH EYES CLOSED, RESP EVEN AND UNLABORED. PATIENT NOTED TO BE SNORING. CALL LIGHT WITHIN REACH. NO DISTRESS.
[2016-07-01 09:30] VITALS: BP 147/42
--- NOTE | 2016-07-01 10:10 | NUR ---
MEDICATED FOR RESTLESS AT THIS TIME. ATIVAN SEEMS TO BE EFFECTIVE FOR PATIENT. RESP EVEN AND UNLABORED. PATIENTS FAMILY AT BEDSIDE. NO DISTRESS. CALL LIGHT WITHIN REACH.
--- NOTE | 2016-07-01 14:03 | NUR ---
RESTING COMFORTABLY WITH EYES CLOSED, RESP EVEN AND UNLABORED. FAMILY REMAINS AT BEDSIDE. NO DISTRESS.
--- NOTE | 2016-07-01 14:36 | NUR ---
MEDICATED WITH ATIVAN AT THIS TIME FOR SLIGHT JERKING. RESP EVEN AND UNLABORED. FAMILY REMAINS AT BEDSIDE. NO DISTRESS.
--- NOTE | 2016-07-01 19:52 | NUR ---
ASSESSMENT COMPLETE, RESTING WITH EYES CLOSED, RESPERATIONS SHALLOW ON O2 AT 2 LITER VIA NC. PEG TUBE CLAMPED. FAMILY AT BED SIDE, BED LOW, CL IN REACH.
[2016-07-01 20:00] VITALS: BP 135/64
--- NOTE | 2016-07-01 23:52 | NUR ---
MORPHINE 1 MG GIVEN FOR S/S PAIN, PT MOANING, FAMILY AT BED SIDE.
--- NOTE | 2016-07-02 00:19 | NUR ---
BANANA CARRIER AT BED SIDE TO OBTAIN VITALS. WILL CONT PLAN OF CARE.
--- NOTE | 2016-07-02 03:59 | NUR ---
RESTING ON LEFT SIDE, RESPERATIONS SHALLOW, NO S/S OF DISCOMFORT NOTED. FAMILY AT BED SIDE, BED LOW, CL IN REACH.
--- NOTE | 2016-07-02 06:16 | NUR ---
BATH AND LINEN SOE COMPLETE, REPOSITIONED IN BED FOR COMFORT. FAMILY REMAINS AT BED SIDE.
--- NOTE | 2016-07-02 07:05 | NUR ---
RECEIVED REPORT. ASSUMED CARE OF PATIENT. CALL LIGHT WITHIN REACH. PATIENT REMAINS ON HOSPICE. PATIENT IS LETHARGIC. FAMILY AT BEDSIDE. RESP EVEN AND UNLABORED. GENERALIZED EDEMA. NO DISTRESS. RESTING PEACEFULLY WITH EYES CLOSED. RESP EVEN AND UNLABORED.
[2016-07-02 08:15] VITALS: BP 143/52
--- NOTE | 2016-07-02 12:44 | NUR ---
0957 FAMILY CAME TO DESK AND STATES THEY THINK PATIENT HAS PASSES AWAY 0959 NO PULSE OR RESPIRATIONS DURING TWO ASCULATATED MINUTES 1000 PAGED 1004 HOSPICE CALLED TO NOTIFY OF 1006 SUPERVISOR MICROWAVE NOTIFIED OF 1014 ON UNIT AND PRONOUNCED 1019 GAUTHIER CALLED AND PATIENT IS NOT A CANDIDATE REF# [id number] PER ESTEFANY 1028 COMMUNICATION SKILLS INSTRUCTOR KATHARINE LA PAGED 1036 COMMUNICATION SKILLS INSTRUCTOR RETURNED CALL AND NOTIFIED OF 1100 HOSPICE NURSE HERE [address] [facility] HERE AND PERMISSION GIVEN FROM THE FAMILY FOR THE HOME TO TAKE THE BODY. PATIENT HAD NO PERSONAL ITEMS. [address] [facility] LEFT WITH .
== END 2016-07-02 10:14 | DRG 951 ==
LOC: D.M2 18:50
PROVIDERS: ADMIT Legal Medicine
DX: Z51.5 Encounter for palliative care (principal)